=== PATIENT | female | born 1960 | race Caucasian/White ===

== ENCOUNTER 2016-08-05 17:55 | Emergency (ER) | payer OTHER ==
[~2016-08-05] VITALS: Ht 165.1 cm; Wt 97.5 kg
[~2016-08-05 17:55] MED LIST: ACTOS45 MG PO; AMOXICILLIN500 MG PO; Atrovent I0.5 MG/2.5 INH; BACTRIM DS 8001 TA1 PO; CIPRO500 MG PO; CIPROFLOXACIN500 MG PO; Carafate1 GM PO; DAYPRO600 M1 PO; DOXYCYCLINE100 M3 PO; DUONEB 3 MG/3 ML3 M1 INH; GLYBURIDE5 MG PO; GOOD NEIGHBOR150 MG PO; HUMALOG MIX 75/23 ML SC; HUMALOG PEN100 U/ML SC; KEFLEX500 M1 PO; KEFLEX500 MG PO; LISINOPRIL2.5 MG PO; LISINOPRIL20 MG PO; LOPERAMIDE HCL2 MG PO; LOSARTAN POTAS100 M1 PO; LOVASTATIN20 MG PO; METHOCARBAMOL750 MG PO; METOCLOPRAMIDE10 M1 PO; METOCLOPRAMIDE10 MG PO; MICRONASE5 MG PO; MOTRIN800 MG PO; NEURONTIN300 MG PO; NOVOLOG 70/30 M10 ML SC; NOVOLOG 701 UNIT/0.0 IV; NOVOLOG MI100 UNIT/1 SC; NOVOLOG MIX 70/33 ML SC; NOVOLOG10 ML SC; NOVOLOG100 U/ML SC; NYSTATIN CREAM15 GM T; OMEPRAZOLE40 MG PO; PERCOCET 325 MG1 TA2 PO; PREDNICOT20 MG PO; REGLAN10 MG PO; ROBAXIN-750750 MG PO; ROBAXIN750 MG PO; ROBITUSSIN AC 110 ML PO; TRAMADOL HCL50 MG PO; ULTRAM50 MG PO; VANCOCIN1000 MG/25 IV; VANCOMYCIN HCL N1 GM IV; VITAMIN D2400 IU PO; ZITHROMAX Z PA250 MG PO
[2016-08-05] MEDS ORDERED: PLAVIX75 M1 PO (18:00)
[2016-08-05 18:44] LABS: BASO % 0.3 % (0.0-1.0); EOS # 0.1 10*3/uL (0.0-0.4); EOS % 0.9 % (1.0-4.0); HEMATOCRIT 36.2 % (37.0-47.0); HEMOGLOBIN 11.9 g/dl (12.0-16.0); LYMPH # 1.6 10*3/uL (1.3-4.4); LYMPH % 23.4 % (27.0-41.0); MEAN CELL VOLUME 88.7 fl (81.0-99.0); MEAN CORPUSCULAR HGB 29.2 pg (27.0-31.0); MEAN CORPUSCULAR HGB CONC 32.9 g/dl (33.0-37.0); MEAN PLATELET VOLUME 11.6 fl (9.6-12.3); MONO # 0.3 10*3/uL (0.1-1.0); MONO % 4.5 % (3.0-9.0); NEUT # 4.9 10*3/uL (2.3-7.9); NEUT % 70.5 % (47.0-73.0); PLATELET COUNT AUTOMATED 203 10*3/uL (130-400); RED BLOOD COUNT 4.08 10*6/uL (4.10-5.10); RED CELL DISTRI WIDTH 12.5 % (0-14.5)
[2016-08-05 18:58] LABS: ALBUMIN 2.9 gm/dl (3.1-4.5); ALKALINE PHOSPHATASE 92 U/L (45-117); BILIRUBIN, TOTAL 0.3 mg/dl (0.2-1.0); BUN 13 mg/dl (7-24); CARBON DIOXIDE 27 mmol/L (21-32); CHLORIDE 102 mmol/L (98-107); EST GLOM FILT AFRICAN AMERICAN > 60 ml/min; GLUCOSE 245 mg/dL (65-99); SGOT/AST 15 IU/L (3-35); SGPT/ALT 21 U/L (12-78); SODIUM 138 mmol/L (136-145)
[2016-08-05 19:00] LABS: PROTHROMBIN TIME 10.1 SECONDS (9.0-12.4)
[2016-08-05 19:01] LABS: C-REACTIVE PROTEIN 0.95 MG/DL (0-0.3); CKMB 1.4 ng/ml (0.5-3.6); MAGNESIUM 1.6 mg/dL (1.5-2.1)
[2016-08-05 20:12] LABS: BILIRUBIN NEGATIVE (NEGATIVE); BLOOD 3+ (NEGATIVE); CLARITY SL CLOUDY (CLEAR); COLOR YELLOW (YELLOW); GLUCOSE 1+ (NEGATIVE); KETONE TRACE (NEGATIVE); LEUKO ESTERASE 1+ (NEGATIVE); NITRITE POSITIVE (NEGATIVE); PROTEIN 2+ (NEGATIVE); SPECIFIC GRAVITY 1.025 (1.005-1.030); UROBILINOGEN 0.2 E.U./dl (0.2-1.0)
[2016-08-05 20:29] LABS: BACTERIA 3+; RBC 0-2 rbc/hpf (0-2); URINE REFLEX COMMENT YES (NO); WBC 31-40 wbc/hpf (0-5)
[2016-08-05] MEDS ORDERED: MACROBID100 M1 PO (20:35)
[2016-08-05 21:00] VITALS: BP 154/80
[2016-09-17] MEDS ORDERED: TESSALON PERLE100 M1 PO (17:36)
[2016-09-17] MEDS ORDERED: ZOFRAN ODT4 MG SL (17:36)
== END 2016-08-05 21:00 | disposition home or self-care (01) ==
LOC: ED 17:55
PROVIDERS: Nurse Practitioner Family
DX: N39.0 Urinary tract infection, site not specified (principal); R31.9 Hematuria, unspecified; K52.9 Noninfective gastroenteritis and colitis, unspecified; I25.2 Old myocardial infarction; E11.9 Type 2 diabetes mellitus without complications; Z98.890 Other specified postprocedural states; Z88.0 Allergy status to penicillin

== ENCOUNTER 2016-10-17 12:18 | Emergency (ER) | payer OTHER ==
[~2016-10-17] VITALS: Ht 170.1 cm; Wt 100.2 kg
[~2016-10-17 12:18] MED LIST changes: +MACROBID100 M1 PO; +PLAVIX75 M1 PO; +TESSALON PERLE100 M1 PO; +ZOFRAN ODT4 MG SL
[2016-10-17 13:01] LABS: BILIRUBIN NEGATIVE (NEGATIVE); BLOOD 2+ (NEGATIVE); CLARITY CLOUDY (CLEAR); COLOR YELLOW (YELLOW); GLUCOSE NEGATIVE (NEGATIVE); KETONE NEGATIVE (NEGATIVE); LEUKO ESTERASE 3+ (NEGATIVE); NITRITE POSITIVE (NEGATIVE); PROTEIN 2+ (NEGATIVE); UROBILINOGEN 0.2 E.U./dl (0.2-1.0)
[2016-10-17 13:18] LABS: URINE REFLEX COMMENT YES (NO)
[2016-10-17 13:19] LABS: BACTERIA 3+; EPITHELIAL CELLS 20-30; WBC TNTC wbc/hpf (0-5)
[2016-10-17 13:44] LABS: BASO % 0.5 % (0.0-1.0); EOS # 0.3 10*3/uL (0.0-0.4); EOS % 3.1 % (1.0-4.0); HEMATOCRIT 39.7 % (37.0-47.0); HEMOGLOBIN 12.8 g/dl (12.0-16.0); LYMPH # 2.9 10*3/uL (1.3-4.4); LYMPH % 33.1 % (27.0-41.0); MEAN CELL VOLUME 89.4 fl (81.0-99.0); MEAN CORPUSCULAR HGB 28.8 pg (27.0-31.0); MEAN CORPUSCULAR HGB CONC 32.2 g/dl (33.0-37.0); MEAN PLATELET VOLUME 11.3 fl (9.6-12.3); MONO # 0.4 10*3/uL (0.1-1.0); MONO % 4.8 % (3.0-9.0); NEUT # 5.1 10*3/uL (2.3-7.9); NEUT % 58.3 % (47.0-73.0); PLATELET COUNT AUTOMATED 262 10*3/uL (130-400); RED BLOOD COUNT 4.44 10*6/uL (4.10-5.10); RED CELL DISTRI WIDTH 13.2 % (0-14.5); WHITE BLOOD COUNT 8.8 10*3/uL (4.8-10.8)
[2016-10-17 13:59] LABS: ALBUMIN 2.9 gm/dl (3.1-4.5); ALKALINE PHOSPHATASE 93 U/L (45-117); BILIRUBIN, TOTAL 0.2 mg/dl (0.2-1.0); BUN 27 mg/dl (7-24); C-REACTIVE PROTEIN < 0.29 MG/DL (0-0.3); CARBON DIOXIDE 25 mmol/L (21-32); CHLORIDE 106 mmol/L (98-107); EST GLOM FILT AFRICAN AMERICAN > 60 ml/min; GLUCOSE 217 mg/dL (65-99); MAGNESIUM 2.6 mg/dL (1.5-2.1); POTASSIUM 5.1 mmol/L (3.5-5.1); SGOT/AST 17 IU/L (3-35); SGPT/ALT 20 U/L (12-78); SODIUM 139 mmol/L (136-145); TOTAL PROTEIN 7.1 gm/dL (6.4-8.2)
[2016-10-17] MEDS ORDERED: CIPRO500 MG PO (17:25)
== END 2016-10-17 17:26 | disposition home or self-care (01) ==
LOC: ED 12:18
PROVIDERS: Emergency Medicine
DX: N39.0 Urinary tract infection, site not specified (principal); Z88.0 Allergy status to penicillin; Z79.899 Other long term (current) drug therapy

== ENCOUNTER → 2016-10-21 | Outpatient (CLI) | payer OTHER | END | disposition home or self-care (01) | LOC: MAMMO 10-13 13:00 | DX: Z12.31 Encounter for screening mammogram for malignant neoplasm of breast (principal) ==

== ENCOUNTER → 2016-10-29 | Outpatient (CLI) | payer OTHER ==
--- NOTE | ~2016-10-29 | WRIGHTHP ---
[place], [place] PATIENT HISTORY AND PHYSICAL EXAM NAME: YOVANI TATE [facility] #: [id number] UNIT #: [id number] ROOM: DOCTOR: ELSA CardozoTIFFANIE BIRTHDATE: [birth year] DOS: 10/29/2016 CHIEF COMPLAINT: Diabetic ulcer of the left great toe. HISTORY OF PRESENT ILLNESS: This is a 56-year-old female with diabetic neuropathy and history of uncontrolled diabetes who was seen back last year in April through late May for her diabetic foot ulcer of the left forefoot. This wound that did eventually heal with wound care and we have not seen her for quite some time. She comes in today with a new wound of the same foot on the left great toe. She says she has had for about a month now. She has been using triple antibiotic ointment at home. There has been some drainage, her has been changing the dressing himself and noticed some odor at the last time he changed it. There are no fevers or chills. She says her sugars are not well controlled. She was in the hospital recently back in late September for multiple medical problems that included intractable nausea and vomiting so she was being worked up for this. She was also worked up for atypical chest pain and also had been worked up for a pulmonary nodule. PAST MEDICAL HISTORY: Significant for the following recent diagnosis of gastric erosions and ulcers on EGD, history of intractable nausea and vomiting, hypokalemia, coronary artery disease, type 2 diabetes, uncontrolled; mixed hyperlipidemia, chronic low back pain, diabetic polyneuropathy, benign essential hypertension, diabetic gastroparesis, atypical chest pain, chronic kidney disease stage 3. She has had a history of abscesses, cellulitis of the foot, history of metabolic acidosis, non-ST elevation GA, difficulty ambulating, UTIs and viral syndrome. FAMILY HISTORY: Positive for coronary artery disease, diabetes, and hypertension. ALLERGIES: PENICILLIN. MEDICATIONS: The medications that she was directed to take are glyburide 5 mg tablets 10 mg twice a day, lovastatin 20 mg at bedtime, lisinopril 20 mg at bedtime, losartan 100 mg daily, DuoNeb twice a day, omeprazole 40 daily, Neurontin 300 every 8 hours, insulin sliding scale 70/30 twice a day 70 units, loperamide was as needed, Plavix 75 mg daily. She is on antibiotics for UTI, Zofran p.r.n. and Tessalon Perles 100 mg 3 times a day. SOCIAL HISTORY: As follows: She does not smoke or drink. FAMILY HISTORY: Significant for diabetes, coronary artery disease, hypertension, and cancer. REVIEW OF SYSTEMS: She has neuropathy. She does have some chronic dyspnea on exertion. She denies any chest pains, fevers, documented fevers or diarrhea. No pain with the wound and she does have neuropathy as stated above. PHYSICAL EXAMINATION: GENERAL: This is a patient who appears older than her stated age, [facility] and [place], [place] PATIENT HISTORY AND PHYSICAL EXAM [facility]: [facility] [id number] UNIT #: [id number] ROOM: DOCTOR: TIFFANIE HUNTER M.D. BIRTHDATE: [birth year] cooperative to examination, in no acute distress. VITAL SIGNS: As follows: She is afebrile, pulse of 74, respirations 16; blood pressure is 148/90. NECK: There is no JVD. LUNGS: Clear. CARDIOVASCULAR: S1, S2 regular rate and rhythm. ABDOMEN: Obese and soft, nontender presently. EXTREMITIES: She has a wound noted on her left great toe plantar aspect that is surrounded with very thick callus it is open at 1.2 x 0.7 x 0.2. Her pedal pulses are palpable. Her toes are warm. She has no calf pain and her RONI was 1.22 on the left and 1.23 on the right. A debridement was done. The tissue removed was not nonviable hyperkeratotic callus as well as fibrin, slough and subcutaneous tissue. This was accomplished with a #15 blade and a curette. There was minimal bleeding that was controlled with pressure. The post-debridement measurements are as follows 1.3 x 0.8 x 0.2 in depth. The patient tolerated the debridement well. LABORATORY DATA: Her last white count was 9.7, hemoglobin is 14, and platelets are 227. BUN was 14, creatinine was 1.4. Hemoglobin A1c back in April was 13.5. I do not see a recent one done. Albumin was 2.9. ASSESSMENT AND PLAN: Diabetic foot ulcer of the left great toe. A culture was taken although clinically there does not appear to be any signs of infection. She does have a postop shoe that is a Darco postop shoe but it seems like that it is made for an ulcer of the heel as there is some part of the heel is cutout. So, I do not think this is really specific for forefoot offloading so I did advise her to consult with [facility] to see if we can get a forefoot offloading shoe for her. We have tried to contact cast in the past; however, she has difficulty ambulating with this and severe balance issues, so she is not a candidate for a contact cast. She did have some arterial Dopplers done last fall which were unremarkable, so we will not repeat this study again. I did advise her to get x-ray of the area if we can and at some point, we will need to repeat her hemoglobin A1c to see where we are at as it was several months ago that she had it done. We will follow up with the patient in 1 week. Right now, we will use a collagen silver dressing as well as a bulky dressing. Followup in 1 week. [place], [place] PATIENT HISTORY AND PHYSICAL EXAM [facility] [id number] UNIT #: [id number] ROOM: DOCTOR: TIFFANIE HUNTER M.D. BIRTHDATE: [birth year] TIFFANIE HUNTER MD CM:HISPHYS:PATIENT HISTORY AND PHYSICAL EXAMINATION [id number] TIFFANIE HUNTER M.D. 10/30/16 1046 interface
== END ==
LOC: WOUNDCARE 01:23
DX: E11.621 Type 2 diabetes mellitus with foot ulcer (principal); L97.522 Non-pressure chronic ulcer of other part of left foot with fat layer exposed; E78.2 Mixed hyperlipidemia; I25.10 Atherosclerotic heart disease of native coronary artery without angina pectoris; E11.22 Type 2 diabetes mellitus with diabetic chronic kidney disease; I12.9 Hypertensive chronic kidney disease with stage 1 through stage 4 chronic kidney disease, or unspecified chronic kidney disease; N18.3 Chronic kidney disease, stage 3 (moderate); E11.43 Type 2 diabetes mellitus with diabetic autonomic (poly)neuropathy; K31.84 Gastroparesis; E11.42 Type 2 diabetes mellitus with diabetic polyneuropathy; I25.2 Old myocardial infarction

== ENCOUNTER → 2016-11-05 | Outpatient (CLI) | payer OTHER ==
--- NOTE | ~2016-11-05 | PR ---
[place], [place] PROGRESS NOTE NAME: YVOANI TATE [facility] #: [id number] UNIT #: [id number] ROOM: DOCTOR: TIFFANIE HUNTER M.D. BIRTHDATE: [birth year] DOS: 11/05/2016 WOUND CARE FOLLOWUP NOTE CHIEF COMPLAINT: Diabetic foot ulcer. HISTORY OF PRESENT ILLNESS: The location of the wound is the plantar aspect of the left great toe. It is diabetic in nature. It has been present for a little over a month now. She did go to [employer] for adjustment of her shoes. She did have a Darco postop shoe that is open in the forefoot. They were able to put a felt foam to help offload the forefoot. This was just done yesterday. Otherwise, there is very minimal drainage with the wound. No fevers or chills. No complaints at the present time. PHYSICAL EXAMINATION: VITAL SIGNS: She is afebrile, pulse is 70, respirations 16, blood pressure is 145/90. WOUND EXAMINATION: The wound is measuring smaller at 1 x 0.5 x 0.1. There is a still very thick callus present around the wound. The base of the wound looks clean. The area was debrided. The tissue removed. It was just nonviable hyperkeratotic callus as well as some minimal fibrin and slough. There was no bleeding and #15 blade was utilized. Cetacaine spray was used for anesthesia. Post-debridement measurements are unchanged. ASSESSMENT AND PLAN: Diabetic foot ulcer of the left great toe. It does seem to be stable and improving. We will continue with the collagen dressing and have her follow up in one week. TIFFANIE HUNTER MD CM:RENAY [phone] TIFFANIE HUNTER M.D. 11/05/162239 interface
== END ==
LOC: WOUNDCARE 02:50
DX: E11.621 Type 2 diabetes mellitus with foot ulcer (principal); L97.522 Non-pressure chronic ulcer of other part of left foot with fat layer exposed; L84 Corns and callosities

== ENCOUNTER → 2016-11-11 | Outpatient (CLI) | payer OTHER ==
--- NOTE | ~2016-11-11 | PR ---
[place], [place] PROGRESS NOTE NAME: YOVANI TATE [facility] #: [id number] UNIT #: [id number] ROOM: DOCTOR: ELSA Cardozo,TIFFANIE BIRTHDATE: [birth year] DOS: 11/11/2016 CHIEF COMPLAINT: Follow up of diabetic foot ulcer. HISTORY OF PRESENT ILLNESS: The location is the plantar aspect of the left great toe. It is diabetic in nature. It has been present for a little over 5 weeks now. She did go to [facility] for adjustment of her postop shoe. She has a Darco postop shoe. She has occasional bloody drainage, but not much at all. No fevers or chills. PHYSICAL EXAMINATION: VITAL SIGNS: Stable. Temp is 98.1, pulse is 68, respirations 18, blood pressure is 120/86. WOUND EXAMINATION: The wound is measuring 1 x 0.5 x 0.2. There is a very abundant amount of callus. There is no cellulitis, purulence or tenderness. A debridement was done. The tissue removed was hyperkeratotic, nonviable callus, fibrin, slough and subcutaneous tissue. This was accomplished with a #15 blade and a curette. There was a moderate amount of bleeding that was controlled with pressure. Post-debridement measurements are unchanged. ASSESSMENT AND PLAN: Diabetic foot ulcer of the left great toe. There has been very minimal change from last week to this week. We will continue with the same dressing which is a collagen and a bulky dressing; however, change it every other day and we will continue with an offloading postop shoe that she has. If we remain unchanged the next week, we may want to consider getting a different orthotic type of a forefoot offloading device for her if the callus continues. TIFFANIE HUNTER MD CM:RENAY [id number] TIFFANIE HUNTER M.D. 11/12/16 0428 interface
== END ==
LOC: WOUNDCARE 01:56
DX: E11.621 Type 2 diabetes mellitus with foot ulcer (principal); L97.522 Non-pressure chronic ulcer of other part of left foot with fat layer exposed; L84 Corns and callosities

== ENCOUNTER → 2016-11-19 | Outpatient (CLI) | payer OTHER ==
--- NOTE | ~2016-11-19 | PR ---
[place], [place] PROGRESS NOTE [facility] [id number] UNIT #: [id number] ROOM: DOCTOR: TIFFANIE HUNTER M.D. BIRTHDATE: [birth year] DOS: 11/19/2016 CHIEF COMPLAINT: Follow up with diabetic foot ulcer. HISTORY OF PRESENT ILLNESS: The location is the plantar aspect of the left great toe. It is diabetic in nature, it has been present for a little over 6 weeks now. She has been using a postop shoe that has been adjusted by overhead garage door hanger for offloading. She cannot tolerate its contact cast due to balance issues. She says it is not draining much at all. No fevers or chills. Her sugars remain high 300-400 range on several occasions. OBJECTIVE: VITAL SIGNS: Temperature is 98.3, pulse is 65, respirations 18, blood pressure is 138/76. EXTREMITIES: The wound is measuring 1 cm x 0.4 cm x 0.1. There is some callus still around the periwound, but overall less than before. There is no purulence, tenderness, or undermining. Debridement was done. The tissue removed was nonviable hyperkeratotic tissue only. This was accomplished with a #15 blade. Minimal fibrin slough was removed. There was minimal bleeding. Post-debridement measurements are 0.9 x 0.5 x 0.1. ASSESSMENT AND PLAN: Chronic diabetic foot ulcer. There is some improvement, but slow progress. No sign of infection. We will continue with collagen and a bulky dressing and have her followup with us in next week. TIFFANIE HUNTER MD CM:PNTRANS [phone] TIFFANIE HUNTER M.D. 11/20/16 0022 interface
== END ==
LOC: WOUNDCARE 02:20
DX: E11.621 Type 2 diabetes mellitus with foot ulcer (principal); L97.522 Non-pressure chronic ulcer of other part of left foot with fat layer exposed; L84 Corns and callosities

== ENCOUNTER → 2016-11-24 | Outpatient (CLI) | payer OTHER ==
--- NOTE | ~2016-11-24 | PR ---
[place], [place] PROGRESS NOTE NAME: YOVANI TATE [facility] #: [id number] UNIT #: [id number] ROOM: DOCTOR: TIFFANIE HUNTER M.D. BIRTHDATE: [birth year] DOS: 11/24/2016 CHIEF COMPLAINT: Diabetic ulcer. HISTORY OF PRESENT ILLNESS: The location is the plantar aspect of left toe. It is diabetic in nature. It has been present for 7 weeks now at least. She has been using a postop shoe with a felt foam for offloading on the inside. She cannot tolerate contact cast. She has no specific changes regarding the wound. No pain. Her sugars remain high in the 300, 400 range. She is going to be starting a new antidiabetic agent in the future. She is scheduled for a pulmonary biopsy in 2 days. No other specific complaints are noted. OBJECTIVE: VITAL SIGNS: Stable. Temperature is 97.7, pulse of 80, respirations 18, blood pressure is 122/64. WOUND EXAM: The wound is measuring 0.6 x 0.4 x 0.1. There is some callus around the periwound. It is not as thick as normal. It looks clean. There is no undermining or purulence. A debridement was done. The tissue removed was hyperkeratotic callus and a fibrin slough and subcutaneous tissue. There was moderate bleeding that was controlled with pressure. Instrument used was #15 blade and a curette. The patient tolerated the debridement well. ASSESSMENT AND PLAN: Diabetic foot ulcer, which is slowly improving. No sign of infection. We will continue with the collagen and a bulky dressing and follow up in one week. TIFFANIE HUNTER MD CM:PNTRANS [phone] TIFFANIE HUNTER M.D. 11/24/16 2245 interface
== END ==
LOC: WOUNDCARE 02:05
DX: E11.621 Type 2 diabetes mellitus with foot ulcer (principal); L97.522 Non-pressure chronic ulcer of other part of left foot with fat layer exposed

== ENCOUNTER → 2016-12-01 | Outpatient (CLI) | payer OTHER ==
--- NOTE | ~2016-12-01 | PR ---
[place], [place] PROGRESS NOTE NAME: YOVANI TATE [facility] #: [id number] UNIT #: [id number] ROOM: DOCTOR: ELSA CardozoTIFFANIE BIRTHDATE: [birth year] DOS: 12/01/2016 This is a wound care followup note. CHIEF COMPLAINT: Diabetic foot ulcer of the left great toe. HISTORY OF PRESENT ILLNESS: The location of the wound is the plantar aspect of the left toe. This is diabetic in nature. She has had it for 8 weeks now. She has been using a postop shoe with felt foam for offloading on the inside. She cannot tolerate a contact cast secondary to severe balance issues. Glucose remains high, she says 300-400 range. She has no new specific complaints regarding the foot wound. She says it is not draining much at all and she is undergoing a pulmonary biopsy in the next few days. OBJECTIVE: VITAL SIGNS: Stable. Pulse is 74, respirations 18, temp is 98.2, blood pressure is 118/60. WOUND EXAMINATION: The wound of the left great toe is measuring 0.8 x 0.4 x 0.1. It looks really good and clean. It is relatively small. There is no sign of infection. There is still a fair amount of callus, but does not seem to be as prominent as it had been. A debridement was done today. It was a selective debridement only. The tissue removed was just nonviable hyperkeratotic callus with a #15 blade and some fibrin and slough at the base of the wound. This was done with a curette. There was minimal bleeding. Post-debridement measurements are unchanged. The patient tolerated the debridement well. Cetacaine spray was used for topical anesthesia. ASSESSMENT AND PLAN: Chronic diabetic foot ulcer of the left great toe. Offloading is a challenge. There is no sign of infection. I did not want to use Endoform today; however, we do not have it available, so we will not use it and we will continue with the collagen dressing. Offloading is a challenge. I did place a small cut out felt around the callused area to see if this will help offload the area a little bit. We will see if this helps. She may be a candidate for new diabetic shoes, so we will see if we can have her scheduled to see our orthotic specialist when she is here at her next visit. Follow up for wound care in 1 week. [place], [place] PROGRESS NOTE NAME: YOVNAI TATE UNIT #: [id number] ROOM: DOCTOR: TIFFANIE HUNTER M.D. BIRTHDATE: [birth year] TIFFANIE HUNTER MD CM:RENAY [phone] TIFFANIE HUNTER M.D. 12/02/16 0927 interface
== END ==
LOC: WOUNDCARE 00:54
DX: E11.621 Type 2 diabetes mellitus with foot ulcer (principal); L97.522 Non-pressure chronic ulcer of other part of left foot with fat layer exposed; L84 Corns and callosities

== ENCOUNTER → 2016-12-08 | Outpatient (CLI) | payer OTHER ==
--- NOTE | ~2016-12-08 | PR ---
[place], [place] PROGRESS NOTE NAME: YOVANI TATE [facility] #: [id number] UNIT #: [id number] ROOM: DOCTOR: TIFFANIE HUNTER M.D. BIRTHDATE: [birth year] DOS: 12/08/2016 CHIEF COMPLAINT: Diabetic foot ulcer. HISTORY OF PRESENT ILLNESS: The location of the wound is the plantar aspect of the left great toe. It is diabetic in nature. She has had it for 9 weeks now. She has been using a postop shoe for offloading with a felt foam inside. Last week, we had applied a felt to the outer part of the callus to try to see if that would help alleviate some of the pressure as well. She has no new complaints. No pain, fevers or chills, it is not draining excessively. OBJECTIVE: VITAL SIGNS: Stable. Temperature is 97.8, pulse of 76, respirations 18, blood pressure is 130/70. WOUND EXAM: The wound is measuring 0.4 x 0.3 x 0.1. It definitely looks good. The callus was not as thick as last week. A selective debridement was done today. Tissue removed was nonviable, hyperkeratotic callus and fibrin and slough. Only number 15 blade and curette were used. Cetacaine spray was used for topical anesthesia. There was really minimal bleeding that was controlled with pressure. Post-debridement measurements are unchanged. ASSESSMENT AND PLAN: Chronic diabetic foot ulcer of the left great toe which is steadily improving with felt. We will continue with collagen dressing and follow up in one week. TIFFANIE HUNTER MD CM:PNTRANS [phone] TIFFANIE HUNTER M.D. 12/08/16 2347 interface
== END ==
LOC: WOUNDCARE 01:09
DX: E11.621 Type 2 diabetes mellitus with foot ulcer (principal); L97.522 Non-pressure chronic ulcer of other part of left foot with fat layer exposed; L84 Corns and callosities

== ENCOUNTER → 2016-12-09 | Outpatient (CLI) | payer OTHER ==
[2016-12-09 14:57] LABS: BILIRUBIN NEGATIVE (NEGATIVE); BLOOD 2+ (NEGATIVE); CLARITY SL CLOUDY (CLEAR); COLOR YELLOW (YELLOW); GLUCOSE 3+ (NEGATIVE); KETONE NEGATIVE (NEGATIVE); LEUKO ESTERASE NEGATIVE (NEGATIVE); NITRITE NEGATIVE (NEGATIVE); PH 6.5 (5.0-9.0); PROTEIN 1+ (NEGATIVE); SPECIFIC GRAVITY <= 1.005 (1.005-1.030); UROBILINOGEN 0.2 E.U./dl (0.2-1.0)
[2016-12-09 15:11] LABS: BACTERIA 2+; WBC TNTC wbc/hpf (0-5)
[2016-12-09 15:21] LABS: ALBUMIN 2.9 gm/dl (3.1-4.5); BUN 14 mg/dl (7-24); CARBON DIOXIDE 26 mmol/L (21-32); CHLORIDE 97 mmol/L (98-107); POTASSIUM 4.6 mmol/L (3.5-5.1); SODIUM 134 mmol/L (136-145)
[2016-12-09 15:34] LABS: ALKALINE PHOSPHATASE 136 U/L (45-117); BILIRUBIN, DIRECT < 0.1 mg/dL (0.0-0.2); BILIRUBIN, TOTAL 0.2 mg/dl (0.2-1.0); CHOLESTEROL 158 mg/dL (<200); EST GLOM FILT AFRICAN AMERICAN 57 ml/min; HDL CHOLESTEROL 55 mg/dl (40-60); LDL CHOLESTEROL 58 mg/dL (9-159); SGOT/AST 19 IU/L (3-35); SGPT/ALT 16 U/L (12-78); THYROID STIM HORMONE (HS) 0.771 uIU/ml (0.358-4.75); TOTAL PROTEIN 6.9 gm/dL (6.4-8.2); TRIGLYCERIDES 224 mg/dl (<150); VLDL CHOLESTEROL 45 mg/dL (6-40)
[2016-12-09 15:46] LABS: GLUCOSE 524 mg/dL (65-99)
[2016-12-09 15:59] LABS: HEMOGLOBIN A1c 12.7 % (4.8-5.6)
== END | disposition home or self-care (01) ==
LOC: LAB 14:20
PROVIDERS: Internal Medicine
DX: E78.5 Hyperlipidemia, unspecified (principal); E55.9 Vitamin D deficiency, unspecified; E11.65 Type 2 diabetes mellitus with hyperglycemia; E04.9 Nontoxic goiter, unspecified

== ENCOUNTER → 2016-12-15 | Outpatient (CLI) | payer OTHER ==
--- NOTE | ~2016-12-15 | PR ---
[place], [place] PROGRESS NOTE NAME: YOVANI TATE [facility] #: [id number] UNIT #: [id number] ROOM: DOCTOR: ELSA CardozoTIFFANIE BIRTHDATE: [birth year] DOS: 12/15/2016 CHIEF COMPLAINT: Diabetic foot ulcer. HISTORY OF PRESENT ILLNESS: Location of the wound is the plantar aspect of the left great toe, it is diabetic. She has had it for 10 weeks. She has been to the Wound Clinic for 6 weeks now where there has been some slow, but steady progress. She has no specific complaints. Her sugars remained very elevated. She had a blood work done just recently that I have reviewed, and it showed glucose of 524. Her hemoglobin A1c was 12.7. She says this is usual for her, and she says she feels better when her sugars are high. The wound is measuring 0.4 x 0.3 x 0.1. It looks essentially the same as last week. There is some callus formation around the toe once again, it does not appear infected. There is no undermining noted. There is no cellulitis. A selective debridement was done just to remove the hyperkeratotic nonviable tissue. There was a minimal amount of bleeding that was controlled with pressure. Instrument utilized was a #15 blade. The post-debridement measurements are 0.6 x 0.3 x 0.2. ASSESSMENT AND PLAN: Chronic diabetic foot ulcer of the left great toe plantar aspect. It does seem to be slowly improving. We will continue with collagen and a bulky dressing, offloading has been a challenge as we cannot use the contact cast on her as she has balance issues. We did have an evaluation by an oil prospecting observer today regarding a forefoot offloading device for her, who has evaluated the patient and brought in an offloading product to help offload the forefoot. So hopefully, this will help as well. I think there is another reason why this wound has not healed is because of the uncontrolled diabetes. I did discuss with her that she really needs to try to get this down. We have had Nutrition see the patient in the past, and she does not believe it is necessary to get another consultation with him. So uncontrolled diabetes remains quite a challenge. She is to followup in the Wound Clinic in 1 week. TIFFANIE HUNTER MD CM:RENAY [id number] TIFFANIE HUNTER M.D. 12/16/16 0423 interface
== END ==
LOC: WOUNDCARE 03:37
DX: E11.621 Type 2 diabetes mellitus with foot ulcer (principal); L97.522 Non-pressure chronic ulcer of other part of left foot with fat layer exposed; L84 Corns and callosities

== ENCOUNTER → 2016-12-22 | Outpatient (CLI) | payer OTHER ==
--- NOTE | ~2016-12-22 | PR ---
[place], [place] PROGRESS NOTE NAME: YOVANI TATE [facility] #: [id number] UNIT #: [id number] ROOM: DOCTOR: ELSA CardozoTIFFANIE BIRTHDATE: [birth year] DOS: 12/22/2016 CHIEF COMPLAINT: Diabetic foot ulcer. HISTORY OF PRESENT ILLNESS: This is a patient known to the Wound Clinic for a diabetic ulcer of the left great toe. It is on the plantar aspect that she has had for at least 11 weeks now. She has been coming to the Wound Clinic for 7 weeks. The wound has been making steady progress and last week, we had provided her with an offloading boot to help offload the area. She cannot tolerate a contact cast due to severe balance issues. This was a new device for her and was utilized to help offload the left great toe. However, she comes in today earlier than her regular scheduled appointment because this boot caused a new wound on her medial left ankle and also started to rub a bit on the distal part of the tibia. It did not create a wound in that area, it is a little bit red, but it is not open. Her sugars remained uncontrolled. She also does not smoke and is going to be going to be admitted later this week for a pulmonary biopsy. So, this is going to require her to be in ICU for an extended period of days. Otherwise, she has no pain, fevers, chills, change in drainage at all with the wound or the new wound. PHYSICAL EXAMINATION: VITAL SIGNS: Today, her vitals are stable. Temp is 98.2, pulse is 70, respirations 18, blood pressure is 122/74. WOUND EXAMINATION: The left great toe wound has some thick callus around it and it is measuring 0.1 x 0.1 x 0.1 and the callus is not as thick as usual, but it is still pretty, present. The left medial ankle is open. It is measuring 1.5 x 0.8 x 0.1. There is really no necrotic tissue. It looks clean. It is a superficial abrasion type wound present, no sign of infection. The left great toe area was debrided of callus today. The tissue removed was just hyperkeratotic callus, nonviable tissue with a #15 blade. There was no bleeding. The post-debridement measurements are 0.4 x 0.4 x 0.1. ASSESSMENT AND PLAN: Chronic diabetic foot ulcer of the left great toe that is making progress slow, but steady. We will continue with collagen and a bulky dressing. She will just use her postop shoes instead of the walking boot. For her new abrasion, which was secondary to the new device rubbing against her skin, we will use bacitracin and a foam dressing for padding and she will stop using the offloading device. The patient is to follow up in 1-2 weeks after she is discharged from the hospital. She is going there for her pulmonary workup. We will see her afterwards. [place], [place] PROGRESS NOTE NAME: YOVANI TATE UNIT #: [id number] ROOM: DOCTOR: TIFFANIE HUNTER M.D. BIRTHDATE: [birth year] TIFFANIE HUNTER MD CM:RENAY [phone] TIFFANIE HUNTER M.D. 12/23/16519 interface
== END ==
LOC: WOUNDCARE 13:10
DX: E11.621 Type 2 diabetes mellitus with foot ulcer (principal); L97.522 Non-pressure chronic ulcer of other part of left foot with fat layer exposed; S90.512D Abrasion, left ankle, subsequent encounter; X58.XXXD Exposure to other specified factors, subsequent encounter

== ENCOUNTER 2016-12-27 12:54 | Inpatient (IN) | payer OTHER ==
[~2016-12-27] VITALS: Ht 170.2 cm; Wt 97.7 kg
--- NOTE | ~2016-12-27 | PR ---
[place], [place] PROGRESS NOTE NAME: YOVANI TATE UNIT #: [id number] ROOM: [id number] DOCTOR: DEE GORMAN,SILVERIO Alice[place] BIRTHDATE: [birth year] DOS: 12/28/2016 ADDENDUM After reviewing the case and labs, I agree with the above plans as described. We will continue with the same program and we will make changes according to new developments. SILVERIO PRICE MD CM:PNTRANS [id number] SILVERIO PRICE MD 12/30/16 1536 interface
--- NOTE | ~2016-12-27 | PR ---
[place], [place] PROGRESS NOTE NAME: YOVANI TATE UNIT #: [id number] ROOM: 504 DOCTOR: SERA AMBROSENOVEMBER BIRTHDATE: [birth year] DOS: 12/28/2016 SUBJECTIVE: The patient is being followed for a left lower leg cellulitis with a small abscess. Cultures are pending. Gram stain has gram-positive cocci in pairs. She is an uncontrolled diabetic. Blood cultures are negative. She is on IV vancomycin, which she is tolerating without issue. She denies nausea, vomiting or diarrhea. No rash or itch. No cough or shortness of breath. No fevers or shaking chills. VITAL SIGNS: Show temperature 98.5, pulse 73, respirations 18, BP 133/65. LABORATORY DATA: Show WBC 6.8, platelets 156, BUN 15, creatinine 0.95. PHYSICAL EXAMINATION: GENERAL: A 56-year-old obese female, in no acute distress. HEAD, EYES, EARS, NOSE AND THROAT: Normocephalic. No thrush. LUNGS: Clear to auscultation bilaterally. Respirations even and unlabored. HEART: Regular rhythm. No murmur appreciated. ABDOMEN: Soft. EXTREMITIES: Left lower leg, improving erythema, abscess has coalesced with a scab over. ASSESSMENT: Small left lower leg cellulitis and a small abscess, which needs a simple debridement. PLAN: I will ask Surgery to stop by and clean up the area to help clear the infection. After that she could be changed over to oral antibiotics for discharge. DOMINIC ZAMORA CNP SILVERIO PRICE MD CM:PNTRANS [id number] DOMINIC ZAMORA CNP 12/30/16 0652 interface
--- NOTE | ~2016-12-27 | PR ---
[place], [place] PROGRESS NOTE NAME: YOVANI TATE UNIT #: [id number] ROOM: 504 DOCTOR: DAY TURNER MD BIRTHDATE: [birth year] DOS: 12/27/2016 SUBJECTIVE: The patient continues to feel better and has been recommended by ID to have a wound debridement performed. OBJECTIVE: GENERAL APPEARANCE: The patient is alert and oriented x 3, in no visible distress. VITAL SIGNS: Blood pressure 140/73, heart rate of 74 beats per minute, afebrile, 98% pulse ox. HEENT AND NECK: Exam within normal limits. CARDIOVASCULAR SYSTEM: Heart rate is regular in rate and rhythm. S1 and S2 normally audible. LUNGS: Clear to auscultation. ABDOMEN: Soft, nontender. No obvious organomegaly. Bowel sounds are present. EXTREMITIES: Without significant cyanosis or edema. The patient has cellulitis and abscess involving inner side of left ankle, which is improving. IMPRESSION: 1. The patient's cellulitis and abscess involving left ankle with spontaneous drainage to be further debrided by Dr. Hernandez tomorrow who has been consulted. The patient being followed by ID specialist. 2. Uncontrolled type 2 diabetes mellitus. Blood sugars staying around 300. I will increase her insulin to 40 units with meals like it used to be before. 3. Coronary artery disease of the [place] vessels without chest pain. 4. Benign essential hypertension with controlled blood pressures. DAY TURNER MD CM:PNTRANS [id number] DAY TURNER MD 12/30/16 0015 interface
--- NOTE | ~2016-12-27 | DS ---
[place], [place] DISCHARGE SUMMARY NAME: YOVANI TATE UNIT #: [id number] ROOM: 504 DOCTOR: YUE GORMANDAY Rosemary BIRTHDATE: [birth year] DOS: 12/30/2016 DISCHARGE DIAGNOSES: 1. The patient with abscess and cellulitis involving left ankle, status post drainage by Dr. Villagran. 2. Type 2 diabetes mellitus, uncontrolled. 3. Coronary artery disease of the [place] vessels. 4. Benign essential hypertension. 5. Mixed hyperlipidemia. 6. Chronic lower back pains. 7. Diabetic polyneuropathy. 8. Coronary artery disease of the [place] vessels. 9. Gastric erosion and also is on EGD in the past. HOSPITAL COURSE: The patient presented with 3 weeks complaints of worsening of infection and redness in the left leg with pain and a draining wound in her left ankle. The patient initially evaluated in the Emergency Department. Cultures are performed. After admission, the clinical account specialist, Dr. Villagran was consulted, who drained the incision and Infectious Disease was helped with treatment of the antibiotics. The patient initially given IV vancomycin and now is being discharged on doxycycline for 2 weeks. The patient is to follow with Dr. Villagran and to follow up with Dr. Garcia with PCP within a week of discharge. Type 2 diabetes mellitus, uncontrolled. The patient takes insulin, but is very poor with her diet and treatment. Benign essential hypertension. Blood pressure is being monitored and treated. Mixed hyperlipidemia treated with simvastatin. LABORATORY DATA: Wound cultures grew Staph aureus. Normal serum electrolytes. CBC, blood cultures were negative. DISCHARGE MANAGEMENT: Doxycycline 100 mg b.i.d. for 2 weeks. Follow up with Dr. Villagran next week. Follow up with Dr. Lynda Garcia within 1 week, hydroxyzine 25 mg every 8 hours, metformin 500 mg half a tablet a.c., Singulair 10 mg a day, aspirin 81 mg a day, Pepcid 20 mg b.i.d., metoprolol 50 mg b.i.d., simvastatin 20 mg daily, glimepiride 8 mg daily, Plavix 75 mg a day, losartan 25 mg daily. Breathing treatments as necessary. [place], [place] DISCHARGE SUMMARY NAME: YOVANI TATE UNIT #: [id number] ROOM: 504 DOCTOR: DAY TURNER MD BIRTHDATE: [birth year] DAY TURNER MD CM:FLY [id number] DAY TURNER MD 12/30/16 1856 interface
--- NOTE | ~2016-12-27 | CON ---
[place], [place] REPORT OF CONSULTATION NAME: YOVANI TATE UNIT #: [id number] ROOM: 504 DOCTOR: DEE GORMAN,SILVERIO Alice[place] BIRTHDATE: [birth year] DOS: 12/27/2016 ADDENDUM I agree with the above plans as described after reviewing the chart, discussing case. We will make adjustments accordingly and follow up clinically. SILVERIO PRICE MD CM:CONSTR:REPORT OF CONSULTATION 1208 12/30/16 1518 interface
--- NOTE | ~2016-12-27 | PR ---
[place], [place] PROGRESS NOTE NAME: YOVANI TATE UNIT #: [id number] ROOM: 504 DOCTOR: DAY TURNER MD BIRTHDATE: [birth year] DOS: 12/28/2016 IMPRESSION: 1. The patient with uncontrolled type 2 diabetes mellitus with much improved blood sugars during her hospital stay and now have dropped down to around 190. At the time of admission they were more than 445. 2. Cellulitis and abscess involving the left ankle showing signs of improvement with treatment with antibiotic. Wound care doctor and Infectious Disease is following her. 3. Coronary artery disease of the [place] vessels without chest pain. 4. Benign essential hypertension with controlled blood pressures. DAY TURNER MD CM:RENAY [id number] DAY TURNER MD 12/29/16 0156 interface
--- NOTE | ~2016-12-27 | CON ---
[place], [place] REPORT OF CONSULTATION [id number] UNIT #: [id number] ROOM: 504 DOCTOR: ELSA CardozoTIFFANIE BIRTHDATE: [birth year] DOS: 12/30/2016 WOUND CARE CONSULTATION CHIEF COMPLAINT: Abscess of the left leg. HISTORY OF PRESENT ILLNESS: This is a 56-year-old female known to the Wound Clinic for a diabetic foot ulcer of the left great toe that she has been following with us for several weeks now. The wound has been steadily improving, but very slowly. She has uncontrolled diabetes and severe neuropathy. A new offloading device was provided for her approximately 2 weeks ago to help offload the left great toe. However, it caused an abrasion of her left medial ankle and was thus discontinued because of that. It appears that since I had last seen her, she developed what appeared to be a draining abscess on the left leg associated with what was felt to be cellulitis. The patient presented to the Emergency Department with this and was admitted for further management. Apparently, it had started out with a lump 3 weeks ago and then gradually had grown in size and then opened up on its own and drained. Also, her glucose was noted to be quite uncontrolled as well. PAST MEDICAL HISTORY: Significant for history of abscess, history of acute bronchitis, acute hyperglycemia, asymptomatic bacteriuria, cellulitis of the left foot, history of failure of outpatient treatment, gastroenteritis, intractable nausea and vomiting, metabolic acidosis, non-ST elevation [place], pharyngitis, history of sepsis, difficulty ambulating, unable to ambulate, UTIs, viral syndrome. She is currently undergoing a workup for pulmonary nodule as well. This is planned to happen at [facility]. PAST SURGICAL HISTORY: , I and D for an abscess. Also, she has had diabetic foot ulcers, which have all healed. SOCIAL HISTORY: She is a past smoker. She quit 3 years ago, but had smoked for 19 years. There is no alcohol use. She lives with her boyfriend in a trailer. FAMILY HISTORY: Significant for diabetes, coronary artery disease, hypertension and cancer. ALLERGIES: PENICILLIN which causes a rash. MEDICATIONS: As follows: She is on albuterol nebs 3 mL q.6 hours, insulin Humalog sliding scale, Tylenol q.6 hours p.r.n., Cozaar 25 mg p.o. daily, Lomotil 1 tablet p.o. daily, Plavix 75 daily, regular insulin sliding scale, Amaryl 8 mg p.o. daily, Zocor 20 at bedtime, metoprolol 50 mg p.o. b.i.d., Pepcid 20 mg p.o. b.i.d., aspirin 81 b.i.d., vancomycin 1250 mg IV daily, Singulair 10 mg p.o. q.p.m., metformin 500 before meals once a day, Vistaril 25 p.o. t.i.d. and Bentyl 10 mg p.o. t.i.d. REVIEW OF SYSTEMS: Currently, she has no fevers or chills. She had some redness associated with the ulcer in the beginning, but it is definitely improved. No nausea or vomiting. No fevers or chills. No chest pains or [place], [place] REPORT OF CONSULTATION NAME: YOVANI TATE UNIT #: [id number] ROOM: [facility] DOCTOR: TIFFANIE HUNTER M.D. BIRTHDATE: [birth year] shortness of breath and no other specific complaints. She thinks the wound on her toe is doing well, it has callused over. It is not draining anything. She does not report any pain with ulcer on her left anterior leg. Her sugars normally run anywhere from 300-500, she had reported in the past that she does not like it when her sugar gets low. She does not feel well, but it has been in the 100s since she has been here in the hospital. Her other review of systems of constitutional, HEENT, cardiovascular, respiratory, abdominal, , neurological, psychiatric, endocrine are negative. PHYSICAL EXAMINATION: VITAL SIGNS: Temperature is 97.4, pulse of 94, respirations 16, blood pressure is 154/83. GENERAL: This is a pleasant female who appears older than her stated age, in no acute distress, slightly pale. HEENT: Oropharynx is clear, she is edentulous. Extraocular movements are intact. Sclerae nonicteric. NECK: There is no JVD. LUNGS: Clear. CARDIOVASCULAR: S1, S2 regular rate and rhythm. ABDOMEN: Obese, soft and nontender, positive bowel sounds. EXTREMITIES: There is no calf pain or edema. She has positive pedal pulses. The left ankle ulcer is measuring 1 x 1 x 0.01 and it is healing and it is improving even from the pictures from 3 days ago. It looks even smaller than before. There is an open ulcer of the left anterior tibia that currently is open approximately 1.4 x 1.4 cm in length and width but 0.1 cm in depth. There is a moderate amount of necrotic tissue present in the base of the wound. The area of erythema that was noted on the initial picture is much improved from when she was admitted, it is not currently tender and there is no overt cellulitis at this time. The left great toe ulcer is callused over and appears stable and presently callused over. LABORATORY DATA: Today show white count of 7 down from 10.2, hemoglobin is 12, platelets are 189. She did have a left shift of 74% when she came, now they are down to 60. Her glucose was elevated at 493 when she presented and currently is 250. Her potassium is 5.1, BUN of 16 and creatinine is 0.83, sodium is 140. She did have a wound culture which grew moderate gram-positive cocci, sensitive to penicillin, but resistant to tetracycline and clindamycin. As there was a moderate amount of necrotic tissue present in the base of the wound, I had recommended debridement. The patient is familiar with debridement as she comes to the Wound Clinic on a weekly basis. We did obtain consent for it. The area was prepped with Cetacaine spray and a curette was utilized to debride the entire area of fibrin, slough and subcutaneous tissue. There was a moderate amount of bleeding that was controlled with pressure. Post-debridement measurements are unchanged. The patient tolerated the debridement well. It did not appear that it was a deeper tunneling wound after debridement. ASSESSMENT AND PLAN: Abscess of the left anterior leg with cellulitis when she presented. The cellulitis is definitely resolved or improved. She is stable. I would recommend TheraHoney and Bactroban for this wound. Oral antibiotics could be recommended per ID. Unfortunately, it is resistant to clindamycin and [place], [place] REPORT OF CONSULTATION NAME: YOVANI TATE UNIT #: [id number] ROOM: 504 DOCTOR: ELSA Cardozo,TIFFANIE BIRTHDATE: [birth year] she is allergic to penicillin, and it is resistant to tetracycline as well, so quinolone may be our only option unless she is a candidate for Zyvox, but we will leave this up to Infectious Disease. I have written orders for wound care to continue and for her to follow up in the Wound Clinic when she is discharged. She should follow up this week. The left great toe ulcer is stable. There is callus formation. We will address this when she comes to the Wound Clinic again. Unfortunately, she is not a candidate for contact cast due to her difficulty with balance. The offloading device unfortunately that we have provided did cause a new abrasion on her left ankle, so offloading is somewhat difficult, but we will continue to offload her with a postop shoe. She is on a collagen dressing at home, which she should continue until she is seen in the Wound Clinic. Her glucose is markedly uncontrolled. Her last hemoglobin A1c was 12.7 and that was 12/09/2016, so she has uncontrolled diabetes and I did discuss this with her that this really needs to get under control, so we can heal her diabetic ulcers. She has had conference with the dietitian regarding her diabetes; however, it does remain an issue. TIFFANIE HUNTER MD CM:CONSTR:REPORT OF CONSULTATION 1028 01/09/17 1521 interface
--- NOTE | ~2016-12-27 | WRIGHTHP ---
[place], [place] PATIENT HISTORY AND PHYSICAL EXAM NAME: YOVANI TATE [facility] #: [id number] UNIT #: [id number] ROOM: 504 DOCTOR: DAY TURNER MD BIRTHDATE: [birth year] DOS: 12/27/2016 HISTORY OF PRESENT ILLNESS: The patient is a 56-year-old female with a past medical history of, 1. Type 2 diabetes mellitus, uncontrolled. 2. Mixed hyperlipidemia. 3. Chronic lower back pains. 4. Diabetic polyneuropathy. 5. History of benign essential hypertension. 6. History of coronary artery disease of the [place] vessels. 7. Gastric erosions and ulcers on EGD. The patient presented to the Emergency Department with 3 weeks' complaints of worsening of infection and abscess in her left leg, which was being followed by [facility] as an outpatient. The abscess had burst and drained today. Cultures were sent from the ER and patient recommended for admission and further management with IV antibiotic treatment after the first dose was given in the ER. After admission, no complaints of chest pain, shortness of breath. No GI or urinary symptoms. SYSTEMS REVIEW: LUNGS: No increasing shortness of breath or wheezing. GASTROINTESTINAL: No nausea, vomiting, diarrhea or constipation. CARDIOVASCULAR: No chest pains or palpitations. FAMILY HISTORY: Noncontributory. HOME MEDICATIONS: The patient takes losartan, Plavix, glimepiride, simvastatin, metoprolol, famotidine, aspirin, Singulair, metformin, hydroxyzine, dicyclomine, Lomotil. ALLERGIES: KNOWN ALLERGIES TO PENICILLIN. PHYSICAL EXAMINATION: GENERAL: Alert and oriented x 3, in no visible distress, moderately obese. HEENT AND NECK: Extraocular movements are intact. Sclerae are anicteric. Oral mucosa is moist and clean. No obvious facial weakness. Neck is supple without any lymphadenopathy. No thyromegaly. No JVD. No carotid arterial bruits. LUNGS: Clear to auscultation. No wheezing. No rhonchi. CARDIOVASCULAR SYSTEM: Heart rate is regular in rate and rhythm. S1 and S2 normally audible. No significant murmur or any other abnormal cardiac sounds. ABDOMEN: Soft, nontender. No obvious organomegaly. Bowel sounds are present. No obvious herniation. EXTREMITIES: Without significant cyanosis or edema. Warm to touch. The patient has a drained abscess on the inner side of the left ankle with cellulitis just above her left ankle. CENTRAL NERVOUS SYSTEM: Alert and oriented x 3. Cranial nerves II-XII are intact. Speech is normal. The patient is able to move all extremities. Normal muscle strength. Deep tendon reflexes are equal on both sides. Plantars were downgoing. [place], [place] PATIENT HISTORY AND PHYSICAL EXAM NAME: YOVANI TATE UNIT #: [id number] ROOM: [facility] DOCTOR: DAY TURNER MD BIRTHDATE: [birth year] IMPRESSION AND PLAN: 1. The patient has uncontrolled type 2 diabetes mellitus with peripheral polyneuropathy, leg ulcers, cellulitis and abscess, progressively getting worse for 3 weeks. The patient was following up with wound center. The patient admitted and her wound abscess spontaneously drained today. Cultures were sent. I am consulting Dr. Villagran, the legal process specialist and Dr. Julia Meier, the ID specialist to help with management with IV antibiotics and local wound care. 2. Type 2 diabetes mellitus, uncontrolled. The patient has been noncompliant with diet. The patient's home insulin was continued and she was kept on a no concentrated sweet diet and blood sugars will be monitored and treated accordingly. 3. Coronary artery disease of [place] vessels without chest pains. The patient has history of 2 stent placement in the past, presently asymptomatic. 4. Benign essential hypertension. I will continue with treatment and monitor blood pressures and adjust treatment accordingly. DAY TURNER MD CM:HISPHYS:PATIENT HISTORY AND PHYSICAL EXAMINATION 20 40 DAY TURNER MD 12/27/162140 interface
--- NOTE | ~2016-12-27 | CON ---
[place], [place] REPORT OF CONSULTATION NAME: YOVANI TATE UNIT #: [id number] ROOM: 504 DOCTOR: SERA AMBROSE,NOVEMBER BIRTHDATE: [birth year] DOS: 12/27/2016 HISTORY OF PRESENT ILLNESS: The patient is a pleasant 56-year-old female for whom we have been consulted for a left lower extremity cellulitis and small abscess. She states it developed there a couple of weeks ago as a lump, and she has had increasing redness around it. She has significant neuropathy, but she did have some burning in the area. Denies any fevers or chills, feels well otherwise. She has had no antibiotics for which she was started on IV clindamycin and then switched to vancomycin. Cultures were obtained. Gram stain shows Gram-positive cocci in pairs. Blood cultures are pending. PAST MEDICAL HISTORY: As above as well as obesity, diabetes for which she makes no attempt to control for approximately 20 years. She states she does not attempt to control her blood sugar as she becomes hypoglycemic and that is not tolerable. She also has a lung nodule for which she is to have surgery on 01/07/2017 at another hospital. She has a left toe diabetic foot ulcer for which she follows up with the wound clinic here. PAST MEDICAL HISTORY: Includes diverticulosis, diabetes, obesity, lung nodule. ALLERGIES: Include PENICILLIN, which cause a rash. SOCIAL HISTORY: Nonsmoker, nondrinker, no illicit drug use. FAMILY MEDICAL HISTORY: Significant for diabetes, coronary artery disease, hypertension and cancer. LABORATORY DATA: WBC is 10.2, platelets 174. BUN 18, creatinine 1.09. LFTs within normal limits. Albumin 3.0. Glucose 435. REVIEW OF SYSTEMS: Alert and oriented. Denies any fevers, chills, nausea, vomiting or diarrhea. She does state she does have intermittent diarrhea due to her diverticulosis. No rash or itch. No recent fevers or shaking chills. No headache or dizziness. No chest pain or palpitations. Again, she had a burning of the left leg. The area has been there for approximately 3 weeks, initially as a lump 3 weeks ago with progressive redness with some swelling, drainage and pain. Further review of systems is unremarkable. CURRENT MEDICATIONS: Include Cozaar, Lomotil, Plavix, Humalog, Amaryl, Zocor, Lopressor, Pepcid, aspirin, vancomycin, Singulair, Glucophage, Restoril, Bentyl. PHYSICAL EXAMINATION: VITAL SIGNS: Showed temperature 98.1, pulse 72, respirations 16, BP 152/79: GENERAL: A 56-year-old obese female in no acute distress. HEAD, EYES, EARS, NOSE AND THROAT: Normocephalic, no thrush. Edentulous. NECK: Supple. LUNGS: Clear to auscultation bilaterally. Respirations even and unlabored. HEART: Regular rhythm. No murmur appreciated. ABDOMEN: Soft, obese, nontender. Positive bowel sounds. EXTREMITIES: Left lower extremity: Left plantar great toe diabetic ulcer is [place], [place] REPORT OF CONSULTATION NAME: YOVANI TATE UNIT #: [id number] ROOM: [facility] DOCTOR: SERA AMBROSE,NOVEMBER BIRTHDATE: [birth year] rather dry, appears to be more callus than anything. The left lower leg with erythema. Small areas of induration in the center with some scabbing, I was unable to express couple of drops of ray purulent discharge. There is no odor. She has no pain with manipulation of it, demonstrating her neuropathy. SKIN: Otherwise, warm, dry and intact, free of rashes. ASSESSMENT: Left leg small abscess with cellulitis. PLAN: I did express some purulence and obtained a fresh culture to make sure we had an adequate culture. Wound was rather dry upon the original examination. I will continue the IV vancomycin and anticipate changing her over to oral antibiotics in the next day or so. Depending on following her clinical course, she may need little more adequate drainage of the purulence. Case discussed with Dr. Silvreio Price. DOMINIC ARNOL ZAMORA SILVERIO PRICE MD CM:CONSTR:REPORT OF CONSULTATION 40 12/27/162036 interface
[2016-12-27 12:59] VITALS: BP 172/80
[2016-12-27 13:25] LABS: BASO % 0.3 % (0.0-1.0); EOS # 0.1 10*3/uL (0.0-0.4); EOS % 1.1 % (1.0-4.0); HEMATOCRIT 38.9 % (37.0-47.0); HEMOGLOBIN 12.8 g/dl (12.0-16.0); LYMPH # 1.9 10*3/uL (1.3-4.4); LYMPH % 18.2 % (27.0-41.0); MEAN CELL VOLUME 88.2 fl (81.0-99.0); MEAN CORPUSCULAR HGB CONC 32.9 g/dl (33.0-37.0); MEAN PLATELET VOLUME 12.5 fl (9.6-12.3); MONO # 0.6 10*3/uL (0.1-1.0); MONO % 5.8 % (3.0-9.0); NEUT # 7.6 10*3/uL (2.3-7.9); NEUT % 74.4 % (47.0-73.0); PLATELET COUNT AUTOMATED 174 10*3/uL (130-400); RED BLOOD COUNT 4.41 10*6/uL (4.10-5.10); RED CELL DISTRI WIDTH 12.6 % (0-14.5); WHITE BLOOD COUNT 10.2 10*3/uL (4.8-10.8)
[2016-12-27 13:47] LABS: ALKALINE PHOSPHATASE 127 U/L (45-117); BILIRUBIN, TOTAL 0.4 mg/dl (0.2-1.0); BUN 18 mg/dl (7-24); CARBON DIOXIDE 26 mmol/L (21-32); CHLORIDE 98 mmol/L (98-107); EST GLOM FILT AFRICAN AMERICAN > 60 ml/min; GLUCOSE 435 mg/dL (65-99); POTASSIUM 4.8 mmol/L (3.5-5.1); SGOT/AST 15 IU/L (3-35); SGPT/ALT 17 U/L (12-78); SODIUM 135 mmol/L (136-145)
[2016-12-27] MEDS ORDERED: AMARYL4 MG PO (14:58)
[2016-12-27] MEDS ORDERED: VITAMIN D50000 I3 PO (14:58)
[2016-12-27] MEDS ORDERED: INCRUSE EL62.5 MCG/A IH (14:59)
[2016-12-27] MEDS ORDERED: ZANTAC 150150 MG PO (14:59)
[2016-12-27] MEDS ORDERED: METFORMIN500 MG PO (15:00)
[2016-12-27] MEDS ORDERED: NOVOLOG10 ML SQ (15:00)
[2016-12-27] MEDS ORDERED: LOMOTIL 0.025 M1 TA1 PO (15:00)
[2016-12-27] MEDS ORDERED: BENTYL10 MG PO (15:01)
[2016-12-27] MEDS ORDERED: SINGULAIR10 M1 PO (15:01)
[2016-12-27] MEDS ORDERED: ASPIRIN81 MG PO (15:01)
[2016-12-27] MEDS ORDERED: ACTOS15 M1 PO (15:02)
[2016-12-27] MEDS ORDERED: VISTARIL25 M2 PO (15:02)
[2016-12-27] MEDS ORDERED: LOSARTAN POTASS25 M1 PO (15:03)
[2016-12-27] MEDS ORDERED: LOPRESSOR50 M1 PO (15:03)
[2016-12-27 15:05] VITALS: BP 169/76
[2016-12-27 16:00] VITALS: BP 152/79
[2016-12-27 20:00] VITALS: BP 125/60
[2016-12-28] VITALS: BP 117/62
[2016-12-28 06:05] LABS: BASO % 0.4 % (0.0-1.0); EOS # 0.1 10*3/uL (0.0-0.4); EOS % 1.6 % (1.0-4.0); HEMOGLOBIN 11.6 g/dl (12.0-16.0); LYMPH % 28.8 % (27.0-41.0); MEAN CELL VOLUME 87.7 fl (81.0-99.0); MEAN CORPUSCULAR HGB 29.1 pg (27.0-31.0); MEAN CORPUSCULAR HGB CONC 33.1 g/dl (33.0-37.0); MEAN PLATELET VOLUME 12.5 fl (9.6-12.3); MONO # 0.6 10*3/uL (0.1-1.0); MONO % 8.3 % (3.0-9.0); NEUT # 4.1 10*3/uL (2.3-7.9); NEUT % 60.8 % (47.0-73.0); PLATELET COUNT AUTOMATED 156 10*3/uL (130-400); RED BLOOD COUNT 3.99 10*6/uL (4.10-5.10); RED CELL DISTRI WIDTH 12.7 % (0-14.5); WHITE BLOOD COUNT 6.8 10*3/uL (4.8-10.8)
[2016-12-28 06:21] LABS: BUN 15 mg/dl (7-24); CARBON DIOXIDE 29 mmol/L (21-32); CHLORIDE 102 mmol/L (98-107); EST GLOM FILT AFRICAN AMERICAN > 60 ml/min; GLUCOSE 322 mg/dL (65-99); POTASSIUM 4.5 mmol/L (3.5-5.1); SODIUM 138 mmol/L (136-145)
[2016-12-28 08:00] VITALS: BP 140/58
[2016-12-28 12:00] VITALS: BP 112/55
[2016-12-28 16:00] VITALS: BP 133/65
[2016-12-28 20:00] VITALS: BP 178/84
[2016-12-29] VITALS: BP 145/69
[2016-12-29 07:42] LABS: BASO % 0.3 % (0.0-1.0); EOS # 0.1 10*3/uL (0.0-0.4); HEMATOCRIT 37.3 % (37.0-47.0); HEMOGLOBIN 12.5 g/dl (12.0-16.0); LYMPH # 1.7 10*3/uL (1.3-4.4); LYMPH % 25.5 % (27.0-41.0); MEAN CELL VOLUME 87.4 fl (81.0-99.0); MEAN CORPUSCULAR HGB 29.3 pg (27.0-31.0); MEAN CORPUSCULAR HGB CONC 33.5 g/dl (33.0-37.0); MONO # 0.3 10*3/uL (0.1-1.0); MONO % 4.6 % (3.0-9.0); NEUT # 4.6 10*3/uL (2.3-7.9); NEUT % 68.3 % (47.0-73.0); PLATELET COUNT AUTOMATED 174 10*3/uL (130-400); RED BLOOD COUNT 4.27 10*6/uL (4.10-5.10); RED CELL DISTRI WIDTH 12.5 % (0-14.5); WHITE BLOOD COUNT 6.8 10*3/uL (4.8-10.8)
[2016-12-29 08:00] VITALS: BP 148/67
[2016-12-29 08:05] LABS: BUN 15 mg/dl (7-24); CARBON DIOXIDE 27 mmol/L (21-32); CHLORIDE 103 mmol/L (98-107); EST GLOM FILT AFRICAN AMERICAN > 60 ml/min; GLUCOSE 302 mg/dL (65-99); POTASSIUM 4.5 mmol/L (3.5-5.1); SODIUM 140 mmol/L (136-145)
[2016-12-29 12:00] VITALS: BP 140/7; BP 140/73
[2016-12-29 16:00] VITALS: BP 145/69
[2016-12-29 19:58] VITALS: BP 139/69
[2016-12-30 00:45] VITALS: BP 131/65
[2016-12-30 06:22] LABS: BASO % 0.4 % (0.0-1.0); EOS # 0.1 10*3/uL (0.0-0.4); EOS % 1.3 % (1.0-4.0); HEMATOCRIT 36.2 % (37.0-47.0); HEMOGLOBIN 12.1 g/dl (12.0-16.0); LYMPH # 2.2 10*3/uL (1.3-4.4); LYMPH % 31.8 % (27.0-41.0); MEAN CELL VOLUME 87.7 fl (81.0-99.0); MEAN CORPUSCULAR HGB 29.3 pg (27.0-31.0); MEAN CORPUSCULAR HGB CONC 33.4 g/dl (33.0-37.0); MEAN PLATELET VOLUME 12.1 fl (9.6-12.3); MONO # 0.4 10*3/uL (0.1-1.0); MONO % 5.6 % (3.0-9.0); NEUT # 4.2 10*3/uL (2.3-7.9); NEUT % 60.8 % (47.0-73.0); PLATELET COUNT AUTOMATED 189 10*3/uL (130-400); RED BLOOD COUNT 4.13 10*6/uL (4.10-5.10); RED CELL DISTRI WIDTH 12.7 % (0-14.5)
[2016-12-30 06:35] LABS: BUN 16 mg/dl (7-24); CARBON DIOXIDE 25 mmol/L (21-32); CHLORIDE 105 mmol/L (98-107); EST GLOM FILT AFRICAN AMERICAN > 60 ml/min; GLUCOSE 250 mg/dL (65-99); POTASSIUM 5.1 mmol/L (3.5-5.1); SODIUM 140 mmol/L (136-145)
[2016-12-30 08:00] VITALS: BP 154/83
[2016-12-30 12:00] VITALS: BP 105/59
[2016-12-30] MEDS ORDERED: DOXYCYCLINE100 M3 PO (14:57)
[2016-12-30 16:00] VITALS: BP 134/75
== END 2016-12-30 18:14 | disposition home or self-care (01) | DRG 571 ==
LOC: ED 12:54 → EDHOLD 14:29 → 5E 14:29
PROVIDERS: Internal Medicine; Nurse Practitioner Family
PROC: 0JBR0ZZ Excision of Left Foot Subcutaneous Tissue and Fascia, Open Approach (ICD-10-PCS; principal; 2016-12-30)
DX: L03.116 Cellulitis of left lower limb (principal); E44.1 Mild protein-calorie malnutrition; E11.42 Type 2 diabetes mellitus with diabetic polyneuropathy; E11.622 Type 2 diabetes mellitus with other skin ulcer; L97.929 Non-pressure chronic ulcer of unspecified part of left lower leg with unspecified severity; L02.416 Cutaneous abscess of left lower limb; E11.65 Type 2 diabetes mellitus with hyperglycemia; I25.10 Atherosclerotic heart disease of native coronary artery without angina pectoris; I10 Essential (primary) hypertension; E78.2 Mixed hyperlipidemia; K25.9 Gastric ulcer, unspecified as acute or chronic, without hemorrhage or perforation; G89.29 Other chronic pain; M54.5 Low back pain; Z83.3 Family history of diabetes mellitus; Z82.49 Family history of ischemic heart disease and other diseases of the circulatory system; Z88.0 Allergy status to penicillin; Z80.9 Family history of malignant neoplasm, unspecified; Z68.34 Body mass index [BMI] 34.0-34.9, adult

== ENCOUNTER → 2017-01-05 | Outpatient (CLI) | payer OTHER ==
[~2017-01-05] MED LIST changes: +ACTOS15 M1 PO; +AMARYL4 MG PO; +ASPIRIN81 MG PO; +BENTYL10 MG PO; +INCRUSE EL62.5 MCG/A IH; +LOMOTIL 0.025 M1 TA1 PO; +LOPRESSOR50 M1 PO; +LOSARTAN POTASS25 M1 PO; +METFORMIN500 MG PO; +NOVOLOG10 ML SQ; +SINGULAIR10 M1 PO; +VISTARIL25 M2 PO; +VITAMIN D50000 I3 PO; +ZANTAC 150150 MG PO
--- NOTE | ~2017-01-05 | PR ---
[place], [place] PROGRESS NOTE NAME: YOVANI TATE [facility] #: [id number] UNIT #: [id number] ROOM: DOCTOR: ELSA CardozoTIFFANIE BIRTHDATE: [birth year] DOS: 01/05/2017 CHIEF COMPLAINT: Followup of diabetic foot ulcer and abscess of the left leg. HISTORY OF PRESENT ILLNESS: The patient has a chronic diabetic foot ulcer of the left great toe that has been gradually improving. She has had it for approximately 12-13 weeks. She has been coming to the Wound Clinic for 9 weeks. The wound has been making gradual progress; however, we tried to get her an offloading device to help offload the area. However, this caused an abrasion on her ankle as well as an irritation on the left anterior tibia. This anterior tibial area eventually became complicated with an infection and abscess that led to hospitalization last week with a large open wound with necrotic tissue. I had seen her in the hospital last week and the wound at that time was debrided and cultures were obtained while she was in the hospital. She was discharged on TheraHoney and Bactroban. She had Infectious Disease following the patient and ID discharged her on doxycycline. The patient comes to us for followup post recent hospitalization. She is awaiting workup for her pulmonary biopsy. Apparently, this is going to be done soon for pulmonary nodules. Apparently, in addition she states her sugars are really still uncontrolled. They were much improved in the hospital when she was getting extra coverage with her sliding scale. However, since she has been seeing a new endocrine doctor that insulin regimen has been changed quite a bit. She has a followup appointment later this week with Dr. Garcia. So, hopefully she can discuss her sugars with her as this is definitely important for wound healing. She has no complaints as far as her left great toe. She thinks she is doing much better. There is very minimal scant drainage. She thinks the left ankle abrasion is definitely improved as well and she has no specific complaints regarding the tibial wound. She is using TheraHoney on it. It is not painful, not tender. She was discharged on doxycycline as stated above. PHYSICAL EXAMINATION: Her vitals are stable. Temperature 97.7, pulse is 68, respirations 18, blood pressure is 120/68. Wound #4, which is on the left great toe is measuring 0.1 x 0.1 x 0.1. Actually, it is covered in a fairly thick callus and it is difficult to tell if it is even open at this time. Wound #5 is the abrasion and is essentially epithelialized at 0.1 x 0.1 x 0.1. Wound #6 is new and it is measuring 0.8 x 0.8 x 0.1. There is a moderate amount of fibrin slough present in the base of the wound. A debridement was done of the two wounds on the left great toe and the left anterior tibia. They were both selective debridement only where the tissue removed was nonviable, hyperkeratotic tissue for the callused area and for the abscessed area, just fibrin slough and biofilm. The instrument used was a curette for the abscessed area, 100% of the wound was debrided and a #15 blade for the callused area, 100% of the area was debrided of nonviable, hyperkeratotic tissue. There was no bleeding with either of these wounds. The patient tolerated the debridement well. Post-debridement measurements are as follows; the left great toe wound is measuring 0.3 x 0.1 x 0.1 for the abscessed area. It is measuring 0.9 x 1.1 x 0.1. The cultures from her hospital stay showed Staph aureus, moderate amount, and then subsequent [place], [place] PROGRESS NOTE NAME: YOVANI TATE Rob UNIT #: [id number] ROOM: DOCTOR: TIFFANIE HUNTER M.D. BIRTHDATE: [birth year] culture with light growth. It was sensitive to penicillin, but resistant to clindamycin, erythromycin and tetracycline. THE PATIENT IS ALLERGIC TO PENICILLIN on her medical charts. The patient was discharged on doxycycline; however, the organism is resistant to this antibiotic. An attempt was made to reach out with Dr. Meier, who had put the patient on doxycycline; however, she is on vacation this week; therefore, I will go ahead and change the antibiotics to Cipro 500 twice a day for 1 week for now as she is allergic to penicillins. The organism was resistant to tetracycline, so doxycycline is really not going to be helpful and also she was sensitive to Bactrim; however, the patient did have a slightly high potassium of 5.1, so I would prefer to use a different agent such as quinolone. We will go ahead with 500 p.o. b.i.d. There is not any overt cellulitis, but there is some localized erythema around the wound as before. ASSESSMENT AND PLAN: Abscess of the left anterior leg. The wound is stable. We will switch the antibiotics to Cipro 500 twice a day, continue with TheraHoney and Bactroban and have her come back in 1 week. The left great toe diabetic ulcer is gradually improving. Hopefully, it will continue to improve and I expect it to be healed soon. We do have a problem with offloading unfortunately and this does remain a challenge at times. The abrasion appears to be healed, but we would like to keep the area protected with a foam. Follow up in 1 week. TIFFANIE HUNTER MD CM:PNTRANS [id number] TIFFANIE HUNTER M.D. 01/06/17 0412 interface
== END ==
LOC: WOUNDCARE 02:12
DX: E11.621 Type 2 diabetes mellitus with foot ulcer (principal); L97.522 Non-pressure chronic ulcer of other part of left foot with fat layer exposed; S90.512D Abrasion, left ankle, subsequent encounter; L02.416 Cutaneous abscess of left lower limb; X58.XXXD Exposure to other specified factors, subsequent encounter

== ENCOUNTER → 2017-01-12 | Outpatient (CLI) | payer OTHER ==
--- NOTE | ~2017-01-12 | PR ---
[place], [place] PROGRESS NOTE NAME: YOVANI TATE [facility] #: [id number] UNIT #: [id number] ROOM: DOCTOR: ELSA CardozoTIFFANIE BIRTHDATE: [birth year] DOS: 01/12/2017 CHIEF COMPLAINT: Followup of a diabetic foot ulcer and open wound of the left leg. HISTORY OF PRESENT ILLNESS: The patient has had a diabetic foot ulcer of the left great toe for 13-14 weeks. She has been coming to the Wound Clinic for 9 weeks. Last week, the wound was almost healed and we had suggested using a foam to pad the area and protect it. She does state that she has been using her postop shoe like she normally has, it is a little loose sometimes and does move around a little bit, and has walked quite a bit yesterday, but otherwise has not done anything different. She also was placed on ciprofloxacin last week for a wound on her left anterior tibia that grew out some Staph that was sensitive to ciprofloxacin. She had initially been placed on doxycycline by ID; however, the cultures were resistant to the doxycycline and she was continued on TheraHoney last week as well. She has no problems with the antibiotics. No pain is noted. No fevers or chills. She still has her biopsy on hold due to the open wounds now. Her sugars remain quite high according to the patient. There has been no change in the sugars. PHYSICAL EXAMINATION: VITAL SIGNS: Her temperature is 97.7, pulse is 68, respirations 18, blood pressure is 118/64. WOUND EXAM: The wound on the left great toe is obviously bigger. It is initially measuring 0.3 x 0.2 x 0.3. There is a large amount of undermining and when I pressed on the area, there is some serosanguineous drainage coming out. There is a large amount of callus, it is macerated, that is quite extensive in comparison to the last time we had seen her. It is not overtly red or tender. The left anterior tibial wound is measuring 0.9 x 1 x 0.1, but looks improved. The erythema is much improved. It is fairly clean. There is a minimal necrotic tissue present in the base of the wound, but overall the periwound erythema is much improved as well. A debridement was done of both of these wounds. The initial debridement was done of the left great toe. Instrument utilized was a scalpel and a forceps and scissors, much of the devitalized tissue was removed. Subcutaneous tissue was also removed and the wound was much larger post debridement. Post debridement a culture was obtained as well. The post-debridement measurements of the left great toe are as follows, 1.5 x 2 x 0.3 in depth. There was a moderate amount of bleeding that was controlled with pressure. A debridement was also done of the left anterior leg wound that was a subcutaneous debridement as well. Tissue removed was fibrin, slough and subcutaneous tissue. This was accomplished with a curette. There was minimal bleeding that was controlled with pressure. Post-debridement measurements are unchanged. ASSESSMENT AND PLAN: Diabetic ulcers of the left great toe which is worse this week than last week when I think that the foam may have been rubbing or moving creating some sort of friction that caused a severe callus with maceration. We will discontinue the foam and use a Maxorb Silver to help dry up the area further and a bulky dressing and she will continue with her postop shoe. We will see if we can have the technical inspector come back next week while she is here to see if we can further adjust any of her footwear to see if we can offload the [place], [place] PRO[facility] [id number] UNIT #: [id number] ROOM: DOCTOR: TIFFANIE HUNTER M.D. BIRTHDATE: [birth year] area better right now. She just has a regular postop shoe, the walking boot that was provided to her in the past; however, caused an abrasion of her ankle as well as possibly continued to the abscess that was contributed to that, so I do not know if she would be a candidate to go back to that, perhaps adjustments could be made or if there is another device that we can try. She has difficulty with balance and cannot use a contact cast. As far as her abscessed wound goes, the erythema is much improved. We can discontinue the antibiotics and I would just go ahead and use a Maxorb Silver for now as well for this instead of continuing with TheraHoney and Bactroban and have her follow up in 1 week. Hopefully, the wounds will be improved by then. TIFFANIE HUNTER MD CM:RENAY [phone] TIFFANIE HUNTER M.D. 01/12/17 2214 interface
== END ==
LOC: WOUNDCARE 02:06
DX: E11.621 Type 2 diabetes mellitus with foot ulcer (principal); L97.522 Non-pressure chronic ulcer of other part of left foot with fat layer exposed

== ENCOUNTER → 2017-01-19 | Outpatient (CLI) | payer OTHER ==
--- NOTE | ~2017-01-19 | PR ---
[place], [place] PROGRESS NOTE NAME: YOVANI TATE [facility] #: [id number] UNIT #: [id number] ROOM: DOCTOR: ELSA CardozoTIFFANIE BIRTHDATE: [birth year] DOS: 01/19/2017 CHIEF COMPLAINT: Followup of diabetic toe ulcer on the left foot, as well as open ulcer of the left anterior tibia. HISTORY OF PRESENT ILLNESS: The patient is a poorly controlled diabetic with neuropathy who has had a wound on her left great toe for 14 to 15 weeks. Last week, the wound margins were much bigger. There was maceration noted after we had tried to protect the area with a foam bandage, so this definitely was worse. She was changed to Maxorb Silver and comes in today for her routine visit, so the wound is located in the left great toe plantar aspect. She has a postop shoe for offloading. She cannot tolerate a contact cast due to balance issues. She also had more of a walking boot that was new, that was tried; however, it created a wound on her left anterior tibia that ended up creating an abscess and the patient has been admitted for antibiotic therapy. In any case, the patient comes in today without any specific complaints. She is asking whether she can have her lung biopsy. She has no fevers or chills. No nausea or vomiting. No other specific complaints. OBJECTIVE: VITAL SIGNS: Stable. Temperature is 98.1, pulse of 64, respirations 18, blood pressure is 124/80. EXTREMITIES: The wound on her left great toe is measuring 1.0 x 0.4 x 0.1 and it looks much better, it has filled in quite a bit. There is still some thick callus around it. There is no sign of infection. The other wound is located in the left anterior tibia and is measuring slightly smaller at 0.8 x 0.9 x 0.1. There is minimal fibrin slough present. The periwound does not appear inflamed at all. There is no sign of purulence or tenderness. Debridement was done of both of these wounds on the left great toe. The instrument utilized was a #15 blade to remove nonviable tissue only, hyperkeratosis. There was no bleeding. The patient tolerated the debridement well. The post-debridement measurements were 0.7 x 2.1 x 0.1. There was selective debridement done on the anterior tibial wound and that was 0.8 x 0.9 x 0.1 and there was no bleeding. It was a selective only, a curette was utilized. The patient tolerated the debridement well. ASSESSMENT AND PLAN: Left diabetic toe ulcer, which is definitely improved from last week. The culture did show Staph aureus that was multidrug resistant to orals except for linezolid. It does not appear to be acutely infected. In my opinion, she seems to be responding to the silver and I would continue with this dressing for now. For the left medial leg wound, it is stable, it seems to be improving and I would continue with the Maxorb Silver for now as well. Hopefully, we will be able to change it to a collagen in the near future. I did put a little bit of extra felt in her postop shoe to see if we can help offload that left great toe. Offloading is really the issue is here, so we will see how she responds to this. Follow up in one week. [place], [place] PROGRESS NOTE NAME: YOVANI TATE UNIT #: [id number] ROOM: DOCTOR: TIFFANIE HUNTER M.D. BIRTHDATE: [birth year] TIFFANIE HUNTER MD CM:PNTRANS [id number] TIFFANIE HUNTER M.D. 01/19/17 1347 interface
== END ==
LOC: WOUNDCARE 01:58
DX: E11.621 Type 2 diabetes mellitus with foot ulcer (principal); L97.522 Non-pressure chronic ulcer of other part of left foot with fat layer exposed; E11.622 Type 2 diabetes mellitus with other skin ulcer; L97.821 Non-pressure chronic ulcer of other part of left lower leg limited to breakdown of skin; E11.40 Type 2 diabetes mellitus with diabetic neuropathy, unspecified

== ENCOUNTER → 2017-01-26 | Outpatient (CLI) | payer OTHER ==
--- NOTE | ~2017-01-26 | PR ---
[place], [place] PROGRESS NOTE NAME: YOVANI TATE [facility] #: [id number] UNIT #: [id number] ROOM: DOCTOR: ELSA CardozoTIFFANIE BIRTHDATE: [birth year] DOS: 01/26/2017 WOUND CARE FOLLOWUP NOTE CHIEF COMPLAINT: Diabetic toe ulcer of the left foot and an open ulcer of the left anterior tibia. HISTORY OF PRESENT ILLNESS: The patient has a diabetic foot ulcer on the left great toe for 15-16 weeks now. She has been coming to the wound clinic for 12 weeks. The wound had almost healed; however, after a foam bandage was applied, it became macerated. There was a new area of trauma to the wound and it ended up being bigger with the fissure-type wound. She also has a chronic ulcer of the left anterior tibia secondary to an abscess formation. She has no new specific complaints. She said her sugar was 170 today. No fevers, chills, or pain. She states that when she walks, her toe tends to lean more on its side and her significant other also states that he has noticed that as well. OBJECTIVE: VITAL SIGNS: Stable. Temperature 97.9, pulse of 78, respirations 18, blood pressure is 138/82. WOUND EXAMINATION: The wound is measuring 1.1 x 0.5 x 0.1 and it is an area where the original ulcer is, however, it also goes straight to the medial aspect through it like a fissure-type wound. It bleeds quite easily. There is no sign of infection. There is large amounts of hyperkeratosis around the wound. The next wound is measuring smaller at 0.8 x 0.6 x 0.1. There is minimal fibrin slough present. It does look a little bit smaller than it did last week. There is no periwound erythema, minimal fibrin slough. A selective debridement was done of both of these wounds. The tissue removed was hyperkeratosis, callus, fibrin slough. Instrument utilized was a #15 blade as well as a curette for smaller wound on the anterior tibia. There was moderate bleeding that was controlled with pressure. Post-debridement measurements for the toe wound are as follows 2 x 0.6 x 0.1 and the anterior tibia wound measurements are the same except for the depth of 0.2. ASSESSMENT AND PLAN: Chronic diabetic foot ulcer of the left great toe. We had trouble offloading this area. I tried to take some of the foam padding trying to offload the forefoot. I think that maybe perhaps just a little bit too tall and that it is causing her to lean pressure on her toe on the medial aspect of her toes, so I was able get 75% of the foam off there. We will use the collagen dressing for now and due to the wound looking very, very clean and still fissure type without actually, it is almost looks like laceration, 1 Steri-Strip was applied to see if we can keep the edges close together, this will probably last 2 days. The patient can take it off at her next dressing change. We will continue with the bulky dressing for now and have her follow up in the Wound Clinic in one week. For her medial lower leg wound, the wound is looking stable and smaller and slow to heal. We will use a collagen for now. Due to the fact that the patient's wound has been so stalled and difficult to heal, I would like to have her see Dr. Ward next week for another opinion regarding offloading to see if we can heal this wound a little faster. [place], [place] PROGRESS NOTE NAME: YOVANI TATE Rob UNIT #: [id number] ROOM: DOCTOR: TIFFANIE HUNTER M.D. BIRTHDATE: [birth year] TIFFANIE HUNTER MD CM:PNANALILIA [id number] TIFFANIE HUNTER M.D. 01/26/17 1505 interface
== END ==
LOC: WOUNDCARE 02:25
DX: E11.621 Type 2 diabetes mellitus with foot ulcer (principal); L97.522 Non-pressure chronic ulcer of other part of left foot with fat layer exposed; E11.622 Type 2 diabetes mellitus with other skin ulcer; L97.821 Non-pressure chronic ulcer of other part of left lower leg limited to breakdown of skin; L84 Corns and callosities

== ENCOUNTER → 2017-02-02 | Outpatient (CLI) | payer OTHER | LOC: WOUNDCARE 10:32 | DX: E11.621 Type 2 diabetes mellitus with foot ulcer (principal); L97.522 Non-pressure chronic ulcer of other part of left foot with fat layer exposed; S80.822D Blister (nonthermal), left lower leg, subsequent encounter; L02.416 Cutaneous abscess of left lower limb; X58.XXXD Exposure to other specified factors, subsequent encounter ==

== ENCOUNTER → 2017-02-06 | Outpatient (CLI) | payer OTHER | LOC: WOUNDCARE 03:10 | DX: E11.621 Type 2 diabetes mellitus with foot ulcer (principal); L97.522 Non-pressure chronic ulcer of other part of left foot with fat layer exposed ==

== ENCOUNTER → 2017-02-09 | Outpatient (CLI) | payer OTHER | LOC: WOUNDCARE 02:15 | DX: E11.621 Type 2 diabetes mellitus with foot ulcer (principal); L97.522 Non-pressure chronic ulcer of other part of left foot with fat layer exposed; S80.821D Blister (nonthermal), right lower leg, subsequent encounter; L02.416 Cutaneous abscess of left lower limb; R60.0 Localized edema; X58.XXXD Exposure to other specified factors, subsequent encounter ==

== ENCOUNTER → 2017-02-13 | Outpatient (CLI) | payer OTHER | LOC: WOUNDCARE 02:49 | DX: E11.621 Type 2 diabetes mellitus with foot ulcer (principal); L97.522 Non-pressure chronic ulcer of other part of left foot with fat layer exposed; L97.821 Non-pressure chronic ulcer of other part of left lower leg limited to breakdown of skin; S80.821D Blister (nonthermal), right lower leg, subsequent encounter; X58.XXXD Exposure to other specified factors, subsequent encounter ==

== ENCOUNTER → 2017-02-20 | Outpatient (CLI) | payer OTHER ==
--- NOTE | ~2017-02-20 | PR ---
[place], [place] PROGRESS NOTE NAME: [facility]ATE [facility] [id number] UNIT #: [id number] ROOM: DOCTOR: CODY LEAHY DPM BIRTHDATE: [birth year] DOS: 02/20/2017 SUBJECTIVE: Patient is here for left lower extremity leg ulcers and plantar foot ulcer. She has no new complaints. She has kept her multilayer compression wrap on, clean, dry and intact. PHYSICAL EXAMINATION: It is noted that the left plantar great toe ulcer is epithelialized and healed. Left medial lower leg ulcer has eschar covered area of 0.1 x 0.1 x 0.1. Left midline lower leg ulcer has an eschar covered area of 0.1 x 0.1 x 0.1. Left leg lateral anterior wound is epithelialized. No debridement was performed today. IMPRESSION: All wounds on the left lower extremity progressing well. They are covered with either epithelialization or callus. PLAN: 1. Evaluate. 2. We will discontinue multilayer compression. We will also discontinue surgical shoe. I have made a cutout in her current diabetic shoes to offload the first metatarsophalangeal joint region to prevent buildup of callus and re-ulceration. The patient will have bordered foam to protect the eschar covered areas of the leg and a double Tubigrip for compression. I would like to see the patient back just for a quick followup to make sure everything has remained healed in 2 weeks and if she has any problems in the meantime, she can call us. CODY LEAHY DPM CM:PNTRANS [id number] CODY LEAHY DPM 02/20/17 2353 interface
== END | disposition home or self-care (01) ==
LOC: WOUNDCARE 02:24
DX: E11.621 Type 2 diabetes mellitus with foot ulcer (principal); E11.622 Type 2 diabetes mellitus with other skin ulcer; L97.821 Non-pressure chronic ulcer of other part of left lower leg limited to breakdown of skin; L97.521 Non-pressure chronic ulcer of other part of left foot limited to breakdown of skin

== ENCOUNTER → 2017-03-06 | Outpatient (CLI) | payer OTHER ==
--- NOTE | ~2017-03-06 | PR ---
[place], [place] PROGRESS NOTE [id number] UNIT #: [id number] ROOM: DOCTOR: CODY LEAHY DPM BIRTHDATE: [birth year] DOS: 03/06/2017 SUBJECTIVE: The patient was seen for followup of left lower leg ulcer and left foot ulcer. The patient has been performing wound care as directed. No new complaints with removal of the bandages. It is noted that the patient is healed. All wounds are epithelialized. No open wounds exist. PLAN: 1. Evaluate. 2. The patient will be discharged for this complaint. She is to keep an eye on the areas. If any problems should arise, she is to call the Wound Care Center immediately, but she will be discharged today as healed. CODY LEAHY DPM CM:RENAY [id number] CODY LEAHY DPM 03/13/17 1052 interface
== END ==
LOC: WOUNDCARE 00:37
DX: L97.522 Non-pressure chronic ulcer of other part of left foot with fat layer exposed (principal)

== ENCOUNTER → 2017-03-18 | Outpatient (CLI) | payer OTHER ==
--- NOTE | ~2017-03-18 | PR ---
[place], [place] PROGRESS NOTE NAME: YOVANI TATE [facility] #: [id number] UNIT #: [id number] ROOM: DOCTOR: ELSA CardozoTIFFANIE BIRTHDATE: [birth year] DOS: 03/18/2017 WOUND CARE PROGRESS NOTE CHIEF COMPLAINT: Ulcer of the left great toe. HISTORY OF PRESENT ILLNESS: This is a 57-year-old female with poorly controlled diabetes and neuropathy, who has had a recurrent ulceration of the left great toe. She was recently discharged from the Wound Clinic approximately last week for a healed diabetic foot ulcer as well as lower extremity ulcers have healed with compression. She has recent new diabetic shoes that were made and also attempted, but has not worn them since last week; and more recently has been wearing her old diabetic shoes, which have a cut out in them to help offload the area. So, she has been wearing those most recently. However, she noticed that she has a new wound that just recently started and initially her boyfriend said she noticed it and it looked just like a thick callus, but there has been some serosanguineous drainage coming from it. The wound has been getting bigger each day, so decided to come back in to have a followup appointment. Sugars have been uncontrolled. She is supposed to have surgery done for a nodule of her lung and has been waiting for surgical clearance. In any case, she reports no fevers or chills and no change in her sugars. No pain with the wound. PHYSICAL EXAMINATION: Shows temperature 97.7, pulse 70, respirations 16, blood pressure is 150/84. There is a very large callus that is noted on the plantar aspect of the left great toe is an open area that is measuring 0.3 x 0.2 x 0.3. There is a large amount of undermining from 2-3 o'clock position with a maximum distance of 1.8. There is some minimal to moderate erythema of the left great toe, but no purulence and no odor is noted. There is a large amount of devitalized tissue present. Also, there is a blistered area on the tip of the left great toe that is measuring 0.2 x 0.1 x 0.1 that is also devitalized and also what looks like a hematoma under the nail present. The nail appears to be intact. A debridement was done of both of these areas. The tissue removed was all devitalized tissue, thick callus, hyperkeratoses, all the undermining was cut away with forceps and scissors. A scalpel was also utilized. There was no bleeding. The patient tolerated the debridement well. Post-debridement measurements of the first wound are 2 x 2 x 0.25; on the second wound it is 0.9 x 0.9 x 0.1. A culture of the deepest part of the left great toe wound was obtained. ASSESSMENT AND PLAN: Recurrent diabetic foot ulcer. I think this is all pressure related. I do not believe there is any deep infection. There may be an early cellulitis noted. A culture was obtained. We will start her on doxycycline, use Maxorb Silver for dressing. She does have some maceration noted, so we will use alginate for now and have her follow up with Dr. Ward this Thursday. We will see if we can get the automobile leasing supervisor to come and see her again. She has her new diabetic shoes. I do not know if those are the shoes that have caused the problem or her other older shoes, which she seems to have been wearing more. Also, she had an offloading device as well to help offload the [place], [place] PROGRESS NOTE [facility]: [id number] UNIT #: [id number] ROOM: DOCTOR: TIFFANIE HUNTER M.D. BIRTHDATE: [birth year] forefoot that not agree with her in the past as far as it did cause issues with rubbing against the anterior tibia. So, we will see if there is any other kind of possibilities for her to help offload the area. She cannot tolerate the contact cast due to balance issues. We will have her follow up with Dr. Ward this Thursday and also an x-ray has been ordered. TIFFANIE HUNTER MD CM:PNTRANS [phone] TIFFANIE HUNTER M.D. 03/18/176 interface
== END | disposition home or self-care (01) ==
LOC: WOUNDCARE 10:07 → LAB 10:07
DX: E11.621 Type 2 diabetes mellitus with foot ulcer (principal); L97.529 Non-pressure chronic ulcer of other part of left foot with unspecified severity; B95.62 Methicillin resistant Staphylococcus aureus infection as the cause of diseases classified elsewhere

== ENCOUNTER → 2017-03-19 | Outpatient (CLI) | payer OTHER | END | disposition home or self-care (01) | LOC: LAB 09:56 | DX: B95.62 Methicillin resistant Staphylococcus aureus infection as the cause of diseases classified elsewhere (principal) ==

== ENCOUNTER → 2017-03-20 | Outpatient (CLI) | payer OTHER ==
--- NOTE | ~2017-03-20 | PR ---
[place], [place] PROGRESS NOTE [id number] UN[facility] #: [id number] ROOM: DOCTOR: CODY LEAHY DPM BIRTHDATE: [birth year] DOS: 03/20/2017 SUBJECTIVE: This is a patient seen for followup of left plantar surface great toe wound. She had been a patient at the wound center and had been discharged as healed. She was seen early in the week by Dr. Villagran with a recurrence of a blood blister underneath the great toe. This area was I and D'd and patient was sent for x-ray which was negative for any osteomyelitis. Cultures were taken. No organisms were seen. The patient is on oral antibiotic at this time. PHYSICAL EXAMINATION: It is noted that left great toe plantar wound is 1.7 cm x 1.5 cm x 0.2 cm. Left metatarsal head first ray 0.1 cm x 0.1 cm x 0.1 cm. All areas were debrided of slough, debris, devitalized tissue through to subQ and some bleeding was noted, which was controlled via pressure. No purulent discharge, odor, deep tracking or cellulitis noted at this time. IMPRESSION: Grade 2 diabetic ulceration, plantar left great toe as described above. PLAN: 1. Evaluate. 2. Debridement was performed. She did get new diabetic shoes and inserts. She did bring them today. I evaluated the inserts. I feel like a first ray cut off with a metatarsal break is needed to elevate the distal great toe in order to prevent friction, rubbing and reinjury. I wrote a script she could take back to the health care administrator to get that modification done. In the meantime, we will use Puracol, a offloading U-shaped felted foam pad and a bulky dressing in a football type preparation. She is to keep this on clean, dry, and intact and see us back at the wound center in 1 week. If the dressing becomes soiled or slip, she can call us or any other problems, she can call in the meantime. CODY LEAHY DPM CM:PNTRANS [id number] CODY LEAHY DPM 03/21/17 0224 interface
== END | disposition home or self-care (01) ==
LOC: WOUNDCARE 02:00
DX: E11.621 Type 2 diabetes mellitus with foot ulcer (principal); L97.522 Non-pressure chronic ulcer of other part of left foot with fat layer exposed

== ENCOUNTER → 2017-03-27 | Outpatient (CLI) | payer OTHER ==
--- NOTE | ~2017-03-27 | PR ---
[place], [place] PROGRESS NOTE NAME: YOVANI TATE UNIT #: [id number] ROOM: DOCTOR: CODY LEAHY DPM BIRTHDATE: [birth year] DOS: 03/27/2017 SUBJECTIVE: The patient is seen for followup of left great toe plantar surface wound. She had a football bandage on, clean, dry and intact. No further issues or complaints. She is finished with her antibiotics. It is noted that her cultures came back with Enterococcus species which would be susceptible orally to PENICILLIN, but patient is allergic or linezolid or vancomycin IV. PHYSICAL EXAMINATION: The patient does not appear to have any gross bacterial infection or acute cellulitis or abscess, so I will refrain from anything or IV as far as any antibiotic. Left great toe plantar wound is measuring 0.5 x 1 x 0.2. This area had callus tissue debris and slough, which was debrided through subcutaneous with a 15 blade. Minimal bleeding controlled via pressure. No signs of infection or complication. The patient tolerated procedure well. IMPRESSION: Left great toe plantar surface ulceration, progressing well with current therapy. PLAN: 1. Evaluate. 2. Debridement was performed as described above. We will continue with Puracol and football type dressing to the area. She is to keep this on clean, dry, and intact. I would like to see the patient back next week for followup of this complaint. I did also put a bit of a build-up in her diabetic shoes in order to offload the great toe. Hopefully, when she is healed, we can transition her into that shoe without any problem. CODY LEAHY DPM CM:PNTRANS [id number] [id number] CODY LEAHY DPM 03/29/17 0652 interface
== END | disposition home or self-care (01) ==
LOC: WOUNDCARE 03:00
DX: E11.621 Type 2 diabetes mellitus with foot ulcer (principal); L97.522 Non-pressure chronic ulcer of other part of left foot with fat layer exposed; L84 Corns and callosities

== ENCOUNTER → 2017-04-03 | Outpatient (CLI) | payer OTHER ==
--- NOTE | ~2017-04-03 | PR ---
[place], [place] PROGRESS NOTE [id number] #: [id number] ROOM: DOCTOR: CODY LEAHY DPM BIRTHDATE: [birth year] DOS: 04/03/2017 SUBJECTIVE: This is an established patient seen for left great toe plantar surface wound. The patient had left knee football-type bandage on until yesterday. She is having extreme neuropathic pain. She removed the bandage, put pain gel on her area. PHYSICAL EXAMINATION: It is noted that the left metatarsal head wound is healed. The left plantar great toe ulcer is measuring 1 x 0.7 x 0.1. Callus tissue debris and subcutaneous was debrided to this area. The patient tolerated procedure well. Minimal bleeding, no purulent discharge or signs of infection noted to the area at this time. IMPRESSION: Grade 2 diabetic ulceration, healing well with current therapy. PLAN: 1. Evaluate. 2. Debridement was performed. We will continue with Puracol and offloading bulky football bandage. The patient is to keep this dry, clean and intact for 1 week and follow up at the wound center at that time. CODY LEAHY DPM CM:RENAY 1144 [id number] CODY LEAHY DPM 04/03/17 1452 interface
== END | disposition home or self-care (01) ==
LOC: WOUNDCARE 00:26
DX: E11.621 Type 2 diabetes mellitus with foot ulcer (principal); L97.522 Non-pressure chronic ulcer of other part of left foot with fat layer exposed

== ENCOUNTER → 2017-04-08 | Outpatient (CLI) | payer OTHER | END | disposition home or self-care (01) | LOC: LAB 13:20 | DX: B95.62 Methicillin resistant Staphylococcus aureus infection as the cause of diseases classified elsewhere (principal) ==

== ENCOUNTER → 2017-04-10 | Outpatient (CLI) | payer OTHER ==
--- NOTE | ~2017-04-10 | PR ---
[place], [place] PROGRESS NOTE [id number] UNIT #: [id number] ROOM: DOCTOR: CODY LEAHY DPM BIRTHDATE: [birth year] DOS: 04/10/2017 SUBJECTIVE: The patient is seen for plantar surface left great toe ulceration. The patient has no new complaints, although she did state that recently a scab fell off of her leg. OBJECTIVE: Upon physical exam today, the area where the scab fell off of her leg is a small ulcerated area that is draining clear fluid and there is some minor nonpitting edema of the leg. This area measures 0.4 x 1.1 x 0.1 cm. No debridement was performed at this area. Left metatarsal head wound is completely resolved. The plantar surface left great toe ulcer is smaller at 0.2 x 0.1 x 0.1. This area was debrided of debris, devitalized tissues through subcutaneous. Minimal bleeding was controlled via pressure. No signs of infection noted in any of these areas at this time. IMPRESSION: Grade 2 diabetic ulceration of the left great toe, progressing well, left metatarsal head ulcer, resolved and new recurrent peripheral vascular ulceration of the left lower leg anterior. PLAN: 1. Evaluate. 2. Debridement of the toe was performed. We will use a metatarsal pad and Puracol to the great toe and Puracol to the left leg and multilayer compression therapy. The patient is to keep this on clean, dry and intact and reappoint in 1 week for followup. CODY LEAHY DPM CM:PNTRANS [id number] CODY LEAHY DPM 04/11/17 0134 interface
== END | disposition home or self-care (01) ==
LOC: WOUNDCARE 02:43
DX: E11.621 Type 2 diabetes mellitus with foot ulcer (principal); L97.522 Non-pressure chronic ulcer of other part of left foot with fat layer exposed

== ENCOUNTER → 2017-04-17 | Outpatient (CLI) | payer OTHER ==
--- NOTE | ~2017-04-17 | PR ---
[place], [place] PROGRESS NOTE NAME: YOVANI TATE UNIT #: [id number] ROOM: DOCTOR: CODY LEAHY DPM BIRTHDATE: [birth year] DOS: 04/17/2017 SUBJECTIVE: The patient is seen for a left great toe wound and a left lower leg wound. The patient has been using the Hydrofera Blue without any complaints. PHYSICAL EXAMINATION: All these areas are noted to be scabbed over and healed. No open wounds are present. The patient will be considered healed and completely epithelialized. Any problems that should arise, she should alert them to us, but otherwise she will be discharged as healed from the wound care center for this complaint. CODY LEAHY DPM CM:PNTRANS 1134 [id number] CODY LEAHY DPM 04/17/17 2342 interface
== END | disposition home or self-care (01) ==
LOC: WOUNDCARE 02:41
DX: E11.621 Type 2 diabetes mellitus with foot ulcer (principal); L97.522 Non-pressure chronic ulcer of other part of left foot with fat layer exposed

== ENCOUNTER → 2017-04-29 | Outpatient (CLI) | payer OTHER | END | disposition home or self-care (01) | LOC: WOUNDCARE 10:21 | DX: E11.621 Type 2 diabetes mellitus with foot ulcer (principal); L97.521 Non-pressure chronic ulcer of other part of left foot limited to breakdown of skin; I10 Essential (primary) hypertension; M19.90 Unspecified osteoarthritis, unspecified site; Z87.891 Personal history of nicotine dependence ==

== ENCOUNTER → 2017-05-06 | Outpatient (CLI) | payer OTHER | END | disposition home or self-care (01) | LOC: WOUNDCARE 01:11 | DX: E11.621 Type 2 diabetes mellitus with foot ulcer (principal); L97.521 Non-pressure chronic ulcer of other part of left foot limited to breakdown of skin; I10 Essential (primary) hypertension; M19.90 Unspecified osteoarthritis, unspecified site; Z87.891 Personal history of nicotine dependence ==

== ENCOUNTER → 2017-05-13 | Outpatient (CLI) | payer OTHER | END | disposition home or self-care (01) | LOC: WOUNDCARE 03:58 | DX: E11.621 Type 2 diabetes mellitus with foot ulcer (principal); L97.521 Non-pressure chronic ulcer of other part of left foot limited to breakdown of skin; I10 Essential (primary) hypertension; M19.90 Unspecified osteoarthritis, unspecified site; Z87.891 Personal history of nicotine dependence ==

== ENCOUNTER 2017-06-19 11:11 | Inpatient (IN) | payer OTHER ==
[~2017-06-19] VITALS: Ht 170 cm; Wt 98.7 kg
--- NOTE | ~2017-06-19 | PR ---
[place], [place] PROGRESS NOTE NAME: YOVANI TATE UNIT #: [id number] ROOM: 402 DOCTOR: ASMITA SANABRIA MD BIRTHDATE: [birth year] DOS: 06/21/2017 SUBJECTIVE: The patient states that she does not have any pain or discomfort in her left foot. It is still pretty red and swollen. There is less drainage from the wound. The wound has been debrided and the granulation tissue was present. OBJECTIVE: VITAL SIGNS: Graphic trend shows a pressure 155/84, pulse of 73, respirations 20, temperature 98.5. LUNGS: Diminished breath sounds, clear. HEART: Regular. ABDOMEN: Obese, soft, nontender. EXTREMITIES: Still swollen with redness, the wound as above. ASSESSMENT AND PLAN: 1. Poorly-healing wound of the left foot plantar area of the left big toe with the possibility of osteomyelitis. Awaiting a triphasic bone scan and an MRI, which will be done tomorrow. Wound culture is growing Klebsiella pneumoniae. Adjustments in antibiotics will be made. 2. Type 2 diabetes mellitus with hypoglycemia and hyperosmolar state. This seems to have resolved. We will change the blood sugars to twice a day. Continue coverage scale. Discontinue metformin because of dropping GFR. 3. Benign hypertension, controlled. Peripheral arterial Doppler will be ordered along with a consult for Podiatry. ASMITA SANABRIA MD CM:PNTRANS [id number] ASMITA SANABRIA MD 06/23/17 0442 interface
--- NOTE | ~2017-06-19 | PR ---
[place], [place] PROGRESS NOTE NAME: YOVANI TATE UNIT #: [id number] ROOM: 402 DOCTOR: ASMITA SANABRIA MD BIRTHDATE: [birth year] DOS: 06/23/2017 SUBJECTIVE: The patient is doing well without any complaints. Appreciate Dr. Abreu's input. OBJECTIVE: VITAL SIGNS: Graphic trend shows a pressure 140/55, pulse of 74, respirations 20, temperature 97.7. LUNGS: Clear. HEART: Regular. ABDOMEN: Obese, soft, nontender. EXTREMITIES: Without any edema. Left foot, still some redness and swelling in the big toe as well as in the foot area. Wound is unchanged. ASSESSMENT AND PLAN: Diabetic wound with cellulitis. Triphasic bone scan showed the possibility of osteomyelitis, but the MRI of the foot showed mostly cellulitis without any evidence of osteo. There is quite a lot of edema also in the surrounding tissue and since she is a poorly controlled diabetic and the ESR elevation noted to be about 75, patient may benefit from continued IV antibiotics at home. ASSESSMENT AND PLAN: 1. Poorly healing wound of the right foot with cellulitis and poorly controlled diabetes mellitus. The patient is advised IV antibiotics. A PICC line will be placed and the patient will be discharged home on IV antibiotics. 2. Type 2 diabetes mellitus. The patient should go back on ____ when she goes home and advised to do a better job, avoiding ____ foods because the patient has poorly controlled diabetes. ASMITA SANABRIA MD CM:PNTRANS [id number] ASMITA SANABRIA MD 06/24/17 0201 interface
--- NOTE | ~2017-06-19 | WRIGHTHP ---
[place], [place] PATIENT HISTORY AND PHYSICAL EXAM NAME: YOVANI TATE [facility] #: [id number] UNIT #: [id number] ROOM: 402 DOCTOR: ASMITA SANABRIA MD BIRTHDATE: [birth year] DOS: 06/19/2017 HISTORY OF PRESENT ILLNESS: The patient is 57 years old. The patient is very well known to us, is following up with wound care for her left foot. The patient says the wound was almost healed and they discharged her from the wound care, but it opened up again. The left foot is pretty swollen and red, so she decided to come into the emergency room. In the emergency room, she was found to be hyperosmolar with blood sugar of 600. She denies having any fever, chills, any chest pains, palpitations. Diet is quite poor resulting in her high blood sugars. PAST MEDICAL HISTORY: Significant for: 1. Last hospitalization in December 2016 with hyperosmolar state. 2. Type 2 diabetes mellitus, uncontrolled. 3. Coronary artery disease with history of stent placement. 4. Benign hypertension. 5. Mixed hyperlipidemia. 6. Diabetic polyneuropathy with chronic pain. MEDICATIONS: She is on are aspirin 81, Incruse Ellipta at bedtime, Plavix 75 daily, Bentyl 10 t.i.d., Lomotil 1 tablet daily p.r.n., vitamin D 50,000 units once a week, gabapentin 300 t.i.d., glimepiride 4 mg b.i.d., [place] 7.5 q. 6 p.r.n., Vistaril 25 daily p.r.n., metformin 500 t.i.d., metoprolol 50 b.i.d., Singulair 10 daily, ranitidine 150 b.i.d., ____ NovoLog 40 units subq t.i.d., Toujeo 80 subq daily. SOCIAL HISTORY: Smoker of about half a pack of cigarettes a day. Denies using any alcohol. PHYSICAL EXAMINATION: VITAL SIGNS: Graphic trend shows a pressure 139/77, pulse of 76, respirations 16, temperature 98.1. LUNGS: Diminished breath sounds, clear. HEART: Regular. ABDOMEN: Obese, soft, nontender. EXTREMITIES: Without any edema. The left foot is quite swollen. Big toe is red and angry looking. Poorly healing wound on the plantar aspect of the left big toe with drainage. LABORATORY DATA: Shows glucose was 618, BUN 9, creatinine 1.41, GFR 38. Sodium 130, potassium 4.1, chloride 95, bicarbonate 27. Ketone is negative. WBC count is normal. ASSESSMENT AND PLAN: 1. Poorly healing wound of the left big toe, most likely with osteomyelitis. ____ bone scan as well as MRI of the left foot is pending. The patient is on IV antibiotics. Cultures are pending. 2. Type 2 diabetes mellitus, poorly controlled because of noncompliance. Restart home medications. Blood sugars are much improved here because of stricter diet. We should possibly go off the metformin because of the dropping [place], [place] PATIENT HISTORY AND PHYSICAL EXAM [id number] UNIT #: [id number] ROOM: [facility] DOCTOR: ASMITA SANABRIA MD BIRTHDATE: [birth year] creatinine and rising GFR. 3. Benign hypertension, controlled. Restart home medications. 4. Chronic back pain. Continue pain meds. ASMITA SANABRIA MD CM:HISPHYS:PATIENT HISTORY AND PHYSICAL EXAMINATION 0908 ASMITA SANABRIA MD 06/20/17 4240 interface
--- NOTE | ~2017-06-19 | PR ---
[place], [place] PROGRESS NOTE [id number] UNIT #: [id number] ROOM: 402 DOCTOR: TAL CUETO DPM BIRTHDATE: [birth year] DOS: 06/23/2017 SUBJECTIVE: The patient seen for followup of ulceration, plantar left hallux. OBJECTIVE: Cap refill time within normal limits, bilateral. Ulceration, plantar aspect of left hallux is full thickness to subcutaneous tissue level. No signs of drainage. Area is granular and clean. No signs of sinus tract or abscess. No signs of localized infection. DIAGNOSTIC STUDIES: The patient's MRI was negative for abscess or osteomyelitis; however, the triphasic bone scan was suspicious for osteomyelitis of the hallux. ASSESSMENT: Diabetic ulceration with cellulitis. PLAN: The patient is being discharged later today. She is going home on IV antibiotics and the patient is to follow at the back at the wound care center where she was previously treated. TAL CUETO DPM CM:RENAY 1143 17 TAL CUETO DPM 06/23/17 1819 interface
--- NOTE | ~2017-06-19 | DS ---
[place], [place] DISCHARGE SUMMARY [id number] UNIT #: [id number] ROOM: 402 DOCTOR: ASMITA SANABRIA MD BIRTHDATE: [birth year] DOS: HOSPITAL COURSE: This patient is 57-year-old, comes in with complaints of redness and swelling of the left big foot as well as extremely high blood sugar of 600. After admission, she was placed on IV fluids, restarted on her insulin and coverage scale. Blood sugars have come down. The fact that she is not very compliant with her diet prevents her blood sugars from being well controlled even on the high dose of medications. She also was found to have some evidence of diabetic nephropathy in the beginning, this seems to have corrected with IV fluids. Triphasic bone scan and MRI of the foot were ordered and consultation with ____ was obtained. ESR and CRP were elevated at 75 and 2.24 respectively. Blood culture shows no bacterial growth. Wound culture shows contaminant. The patient recently had MRSA of the wounds, so I have opted to treat her with Levaquin and vanco. The redness is persistent. Triphasic bone scan shows evidence of cellulitis and possible osteo. MRI of the foot showed no evidence of osteo, but significant cellulitis and surrounding subcutaneous edema was noted, so I have opted to discharge the patient home on IV antibiotics. PICC line will be placed. DISCHARGE MEDICATIONS: The patient will continue to be on home medications. Lovastatin 20, Plavix 75, glimepiride 8 mg, vitamin D 50,000, Incruse Ellipta ____ at bedtime, ranitidine 150 b.i.d., insulin NovoLog 40 units subcutaneous t.i.d., Lomotil p.r.n., Bentyl 10 t.i.d. p.r.n., Singulair 10, aspirin 81, Vistaril 25 t.i.d. p.r.n., losartan 25, Lopressor 50 b.i.d., Neurontin 300 t.i.d., [place] 7.5 q. 6 hours p.r.n. and Toujeo 80 daily. I discontinued the metformin because of rising BUN and creatinine, but we will restart the medication since the kidney functions have improved and that will be maintained at 500 mg 3 times a day. [place], [place] DISCHARGE SUMMARY NAME: YOVANI TATE UNIT #: [id number] ROOM: 402 DOCTOR: ASMITA SANABRIA MD BIRTHDATE: [birth year] ASMITA SANABRIA MD CM:DISCHALEJANDRA 0 ASMITA SANABRIA MD 06/23/17901 interface
--- NOTE | ~2017-06-19 | CON ---
[place], [place] REPORT OF CONSULTATION NAME: [facility]ATE [id number] UNIT #: [id number] ROOM: 402 DOCTOR: JASWANT LEVY DPM BIRTHDATE: [birth year] DOS: 06/22/2017 SUBJECTIVE: This patient is seen as a consult for evaluation of the wound on her left foot. She states, at this time, she is feeling well. Denies fever, chills, nausea, vomiting or night sweats. The patient is diabetic that is uncontrolled. She has a history of a foreign body in the great toe that was removed quite some time ago. She states she had a wound there and it was almost completely healed, but it opened back up recently. She was admitted on Thursday for infection in the left foot. She had an MRI and an ultrasound done just a short time ago. PAST MEDICAL HISTORY: Positive for type 2 diabetes mellitus, uncontrolled; coronary artery disease with history of stent placement; hypertension; hyperlipidemia; diabetic neuropathy; history of foot ulcer; history of osteomyelitis. ALLERGIES: PENICILLIN. CURRENT MEDICATIONS: Include insulin, Levaquin, Cozaar, Levemir, Pepcid, Plavix, Lopressor, Neurontin, and [place]. OBJECTIVE: Upon lower extremity physical examination, pedal pulses are mildly decreased. Skin temperature is warm. CFT is 2 seconds to all digits. Sensation is diminished bilaterally. The plantar left great toe has a large area of ulceration that is full thickness into subcutaneous tissue. Minimal drainage is expressed from the area. There is some mild erythema noted around the wound and dorsum of the great toe, but this does not extend into the forefoot. No fluctuance or signs of abscess. No malodor and the wound is actually fairly clean and granular. She had an arterial ultrasound done. This showed mild bilateral inflow disease with no stenotic lesion or occlusion. Her MRI showed wound at the plantar left great toe with cellulitis. No abscess, no osteomyelitis. I believe, she has a bone scan that is pending. Her sed rate was elevated at 75. ASSESSMENT: Diabetic ulcer, left foot cellulitis. MRI negative for abscess and osteomyelitis. PLAN: Consult is performed. Recommend to continue local wound care to the area. Her MRI was negative. Her ultrasound showed very mild disease. Recommend continue wound care and antibiotics. I do not believe the patient will need any surgery at this time. Her white blood cell count is normal. Sed rate was elevated. Recommend continued care and antibiotics and will follow up the patient tomorrow for reevaluation. [place], [place] REPORT OF CONSULTATION NAME: YOVANI TATE UNIT #: [id number] ROOM: [facility] DOCTOR: JASWANT LEVY DPM BIRTHDATE: [birth year] JASWANT LEVY DPM CM:CONSTR:REPORT OF CONSULTATION 1219 06/22/17 2147 interface
[2017-06-19 11:17] VITALS: BP 135/72
[2017-06-19 11:54] LABS: BASO # 0.1 10*3/uL (0.0-0.1); BASO % 0.6 % (0.0-1.0); EOS # 0.4 10*3/uL (0.0-0.4); EOS % 4.6 % (1.0-4.0); HEMATOCRIT 38.4 % (37.0-47.0); LYMPH # 2.2 10*3/uL (1.3-4.4); LYMPH % 25.2 % (27.0-41.0); MEAN CELL VOLUME 87.5 fl (81.0-99.0); MEAN CORPUSCULAR HGB 29.6 pg (27.0-31.0); MEAN CORPUSCULAR HGB CONC 33.9 g/dl (33.0-37.0); MEAN PLATELET VOLUME 11.9 fl (9.6-12.3); MONO # 0.5 10*3/uL (0.1-1.0); MONO % 6.2 % (3.0-9.0); NEUT # 5.4 10*3/uL (2.3-7.9); NEUT % 63.2 % (47.0-73.0); PLATELET COUNT AUTOMATED 209 10*3/uL (130-400); RED BLOOD COUNT 4.39 10*6/uL (4.10-5.10); RED CELL DISTRI WIDTH 12.3 % (0-14.5); WHITE BLOOD COUNT 8.5 10*3/uL (4.8-10.8)
[2017-06-19 12:05] LABS: ALBUMIN 2.6 gm/dl (3.1-4.5); CREATININE 1.41 mg/dL (0.55-1.02); POTASSIUM 4.1 mmol/L (3.5-5.1); TOTAL PROTEIN 6.9 gm/dL (6.4-8.2)
--- NOTE | 2017-06-19 12:08 | NUR ---
SILVERIO MORSE RN BUDGET MANAGER NOTIFIED @ 1206 PT'S GLUCOSE @ 618,ACKNOWLEGEMENT GIVEN.
--- NOTE | 2017-06-19 12:44 | NUR ---
PT POSITIONED FOR COMFORT FAMILY @ BEDSIDE WITH SAFETY PRECAUTIONS INTACT.
[2017-06-19 13:40] VITALS: BP 143/96
[2017-06-19] MEDS ORDERED: NEURONTIN300 MG PO (14:05)
[2017-06-19] MEDS ORDERED: NORCO 7.5-3251 EACH PO (14:07)
[2017-06-19] MEDS ORDERED: TOUJEO SOL300 UNIT/1 SQ (14:11)
[2017-06-19 16:00] VITALS: BP 154/81
[2017-06-19 20:00] VITALS: BP 127/69
--- NOTE | 2017-06-19 21:00 | NUR ---
PATIENT IS RESTING QUIETLY IN BED, SHE HAS NO VOICED COMPLAINTS AT THIS TIME. SHE HAS AN ULCER TO HER LEFT GREAT TOE WHICH IS NOT CAUSING HER ANY PAIN. RESPIRATIONS EASY/REG, NO SXS OF DISTRESS. SEE ASSESSMENT. CALL LIGHT IS IN REACH. WILL MONITOR.
--- NOTE | 2017-06-19 22:00 | NUR ---
PATIENTS BLOOD SUGAR 148. COVERAGE NOT NEEDED AT THIS TIME.
--- NOTE | 2017-06-19 22:00 | NUR ---
PATIENTS BLOOD SUGAR 148. NO COVERAGE NEEDED.
[2017-06-20] VITALS: BP 119/68
--- NOTE | 2017-06-20 | NUR ---
PATIENTS BLOOD SUGAR 150. NO COVERAGE NEEDED.
--- NOTE | 2017-06-20 02:00 | NUR ---
PATIENTS BLOOD SUGAR 164. 2 UNITS ADMINISTERED. PATIENT IS RESTING QUIETLY IN BED. RESPIRATIONS EASY/REG NO SXS OF DISTRESS. CALL LIGHT IN REACH.
--- NOTE | 2017-06-20 06:41 | NUR ---
PATIENT SLEPT T/O SHIFT WITH NO VOICED COMPLAINTS. SHE WAS PLEASANT/COOPERATIVE T/O THE NIGHT. RESPIRATIONS EASY/REGULAR. NO SXS OF DISTRESS.
[2017-06-20 08:00] VITALS: BP 139/77
[2017-06-20 11:34] VITALS: BP 140/67
[2017-06-20 16:00] VITALS: BP 118/66
[2017-06-20 20:00] VITALS: BP 139/72
[2017-06-21] VITALS: BP 150/85
--- NOTE | 2017-06-21 02:23 | NUR ---
PATIENT HAS BEEN RESTLESS MOST OF THE NIGHT. PATIENT WITH Q2 HOUR BLOOD SUGARS.
--- NOTE | 2017-06-21 04:00 | NUR ---
PATIENT COMPLAINS OF PAIN IN HER LEGS AND FEET, 9/10, STATES UNABLE TO SLEEP. NORCO GIVEN PER PRN ORDER.
--- NOTE | 2017-06-21 04:18 | NUR ---
24 HR chart check completed.
[2017-06-21 08:00] VITALS: BP 155/84
--- NOTE | 2017-06-21 09:00 | NUR ---
DRESSING REMOVED FROM LEFT GREAT TOE FOR DR SANABRIA. WOUND CLEANED AND REDRESSED PER ORDER.
--- NOTE | 2017-06-21 09:11 | NUR ---
DR CUETO'S OFFICE NOTIFIED OF CONSULT FOR DR SANABRIA. PATIENT WITH INFECTED TOE.
--- NOTE | 2017-06-21 11:27 | NUR ---
DR CUETO CALLED AND STATED TO GET 3 VIEWS OF THE LEFT FOOT, WOUND CULTURE, DRESS WOUND WITH BACTROBAN AND DRY DRESSING, CHANGE QDAY AND HE WOULD BE IN TO SEE PATIENT TOMORROW.
[2017-06-21 12:00] VITALS: BP 114/68
[2017-06-21 16:00] VITALS: BP 152/70
[2017-06-21 20:47] VITALS: BP 159/89
[2017-06-22] VITALS: BP 158/88
--- NOTE | 2017-06-22 00:48 | NUR ---
24 HR chart check completed.
--- NOTE | 2017-06-22 05:45 | NUR ---
Medicated with Clarita po prn for chronic leg pain rating 8/10. Will monitor effectiveness. Call light within reach.
[2017-06-22 07:26] LABS: BASO % 0.5 % (0.0-1.0); EOS # 0.5 10*3/uL (0.0-0.4); EOS % 6.4 % (1.0-4.0); HEMATOCRIT 36.5 % (37.0-47.0); HEMOGLOBIN 12.3 g/dl (12.0-16.0); LYMPH # 2.4 10*3/uL (1.3-4.4); LYMPH % 31.8 % (27.0-41.0); MEAN CELL VOLUME 86.9 fl (81.0-99.0); MEAN CORPUSCULAR HGB 29.3 pg (27.0-31.0); MEAN CORPUSCULAR HGB CONC 33.7 g/dl (33.0-37.0); MEAN PLATELET VOLUME 11.2 fl (9.6-12.3); MONO # 0.5 10*3/uL (0.1-1.0); MONO % 6.9 % (3.0-9.0); NEUT # 4.1 10*3/uL (2.3-7.9); PLATELET COUNT AUTOMATED 250 10*3/uL (130-400); RED CELL DISTRI WIDTH 12.3 % (0-14.5); WHITE BLOOD COUNT 7.5 10*3/uL (4.8-10.8)
[2017-06-22 07:42] LABS: BUN 13 mg/dl (7-24); CHLORIDE 105 mmol/L (98-107); CREATININE 0.72 mg/dL (0.55-1.02); POTASSIUM 4.1 mmol/L (3.5-5.1); SODIUM 142 mmol/L (136-145)
--- NOTE | 2017-06-22 07:59 | NUR ---
PT DOWN FOR MRI AT THIS TIME.
[2017-06-22 08:00] VITALS: BP 141/80
--- NOTE | 2017-06-22 08:30 | NUR ---
ADMINISTRATIVE ASSISTANT VS. PT OFF FLOOR FOR TESTING.
--- NOTE | 2017-06-22 10:00 | NUR ---
PT RETURNED FROM MRI AT THIS TIME.
--- NOTE | 2017-06-22 10:52 | NUR ---
Director [facility] in to talk to patient. Patient states lives at HOME with HER BOYFRIEND. There are 3 steps in the home. Physician: DR SANABRIA Pharmacy: [facility] [place] Home health services: NONE Patient's level of ADLs: INDEPENDENT Patient has working utilities: YES DME: [facility] Follow-up physician's appointment after d/c: PREFERS TO MAKE HER OWN APPT Does patient want to access PORTAL?: Discharge plan . LINDA DAVILA DR FEELS PT NEEDS SNF STAY FOR IV ATB IF MRI +. PT ADAMANTLY REFUSES. STATES SHE HAS DONE IV ATB AT HOME BEFORE. I TOLD PT TO SPEAK WITH DR SANABRIA. DR SANABRIA AWARE.
[2017-06-22 11:54] VITALS: BP 135/71
--- NOTE | 2017-06-22 12:10 | NUR ---
DR LEVY IN TO SEE PT AT THIS TIME TO DISCUSS TEST RESULTS.
--- NOTE | 2017-06-22 13:33 | NUR ---
DR LEVY NOTIFIED OF BONE SCAN RESULTS. HE STATES THE MRI IS MORE SPECIFIC AND THE MRI WAS NEGATIVE. NO NEW ORDERS AT THIS TIME.
[2017-06-22 16:00] VITALS: BP 136/70
[2017-06-22 20:00] VITALS: BP 172/86
[2017-06-23] VITALS: BP 138/76
--- NOTE | 2017-06-23 07:43 | NUR ---
PT MEDICATED WITH NORCO FOR C/O HEADACHE PAIN.
[2017-06-23 08:00] VITALS: BP 140/55
[2017-06-23] MEDS ORDERED: METFORMIN500 MG PO (08:42)
--- NOTE | 2017-06-23 09:41 | NUR ---
PT TAKEN TO SURGERY DEPT FOR PICC LINE PLACEMENT.
--- NOTE | 2017-06-23 11:15 | NUR ---
SCRIPT AND INFO FAXED TO I FOR IV ATB. SPOKE WITH VANE. SHE WILL RUN BENEFITS AND CALL ME BACK. [facility] SET UP. WILL GO HOME TODAY AND ATB WILL START TOMORROW AM. NURSE AWARE.
[2017-06-23 12:00] VITALS: BP 132/66
--- NOTE | 2017-06-23 12:32 | NUR ---
Received order for home health IV ATB for ov[facility]. Faxed to [facility] for referral.
--- NOTE | 2017-06-23 13:42 | NUR ---
PER [place] AT [facility], [facility] HAS CONTACTED THEM AND MEDS ARE ALL SET UP. NURSE NOTIFIED OK TO DC.
--- NOTE | 2017-06-23 14:00 | NUR ---
Discharge instructions reviewed with patient/family. Patient receptive and verbalizes understanding. Follow-up care arranged. Written instructions given to patient/family. ANALIA BLANC
--- NOTE | 2017-06-23 14:01 | NUR ---
pt discharged at this time via wheelchair to home with spouse.
== END 2017-06-23 14:02 | disposition home health service (06) | DRG 638 ==
LOC: ED 11:11 → EDHOLD 12:57 → 4E 12:57
PROVIDERS: Nurse Practitioner Family; ADMIT Internal Medicine
PROC: 02HV33Z Insertion of Infusion Device into Superior Vena Cava, Percutaneous Approach (ICD-10-PCS; principal; 2017-06-23)
DX: E11.621 Type 2 diabetes mellitus with foot ulcer (principal); E46 Unspecified protein-calorie malnutrition; L97.529 Non-pressure chronic ulcer of other part of left foot with unspecified severity; N17.0 Acute kidney failure with tubular necrosis; E11.00 Type 2 diabetes mellitus with hyperosmolarity without nonketotic hyperglycemic-hyperosmolar coma (NKHHC); L03.115 Cellulitis of right lower limb; L03.116 Cellulitis of left lower limb; E11.21 Type 2 diabetes mellitus with diabetic nephropathy; E11.40 Type 2 diabetes mellitus with diabetic neuropathy, unspecified; E11.65 Type 2 diabetes mellitus with hyperglycemia; I10 Essential (primary) hypertension; I25.10 Atherosclerotic heart disease of native coronary artery without angina pectoris; E78.2 Mixed hyperlipidemia; G89.29 Other chronic pain; F17.210 Nicotine dependence, cigarettes, uncomplicated; B96.1 Klebsiella pneumoniae [K. pneumoniae] as the cause of diseases classified elsewhere; E66.9 Obesity, unspecified; E11.628 Type 2 diabetes mellitus with other skin complications; Z79.84 Long term (current) use of oral hypoglycemic drugs; Z88.0 Allergy status to penicillin; Z79.899 Other long term (current) drug therapy; Z79.4 Long term (current) use of insulin; Z79.82 Long term (current) use of aspirin; Z98.61 Coronary angioplasty status; Z98.891 History of uterine scar from previous surgery; Z83.3 Family history of diabetes mellitus; Z82.49 Family history of ischemic heart disease and other diseases of the circulatory system; Z91.19 Patient's noncompliance with other medical treatment and regimen; Z80.8 Family history of malignant neoplasm of other organs or systems; Z68.34 Body mass index [BMI] 34.0-34.9, adult

== ENCOUNTER → 2017-07-08 | Outpatient (CLI) | payer OTHER ==
[~2017-07-08] MED LIST changes: +NORCO 7.5-3251 EACH PO; +TOUJEO SOL300 UNIT/1 SQ
== END ==
LOC: WOUNDCARE 02:24
DX: E11.621 Type 2 diabetes mellitus with foot ulcer (principal); L97.522 Non-pressure chronic ulcer of other part of left foot with fat layer exposed; Z87.891 Personal history of nicotine dependence

== ENCOUNTER → 2017-07-15 | Outpatient (CLI) | payer OTHER | END | disposition home or self-care (01) | LOC: WOUNDCARE 01:52 | DX: E11.621 Type 2 diabetes mellitus with foot ulcer (principal); L97.522 Non-pressure chronic ulcer of other part of left foot with fat layer exposed; Z87.891 Personal history of nicotine dependence ==

== ENCOUNTER → 2017-07-29 | Outpatient (CLI) | payer OTHER | END | disposition home or self-care (01) | LOC: WOUNDCARE 03:07 | DX: E11.621 Type 2 diabetes mellitus with foot ulcer (principal); L97.522 Non-pressure chronic ulcer of other part of left foot with fat layer exposed; Z87.891 Personal history of nicotine dependence ==

== ENCOUNTER → 2017-08-05 | Outpatient (CLI) | payer OTHER | LOC: WOUNDCARE 01:04 | DX: E11.621 Type 2 diabetes mellitus with foot ulcer (principal); L97.522 Non-pressure chronic ulcer of other part of left foot with fat layer exposed; Z87.891 Personal history of nicotine dependence ==

== ENCOUNTER → 2017-08-12 | Outpatient (CLI) | payer OTHER | LOC: WOUNDCARE 02:16 | DX: E11.621 Type 2 diabetes mellitus with foot ulcer (principal); L97.522 Non-pressure chronic ulcer of other part of left foot with fat layer exposed; L97.421 Non-pressure chronic ulcer of left heel and midfoot limited to breakdown of skin; Z87.891 Personal history of nicotine dependence ==

== ENCOUNTER → 2017-08-26 | Outpatient (CLI) | payer OTHER | END | disposition home or self-care (01) | LOC: WOUNDCARE 03:06 | DX: E11.621 Type 2 diabetes mellitus with foot ulcer (principal); L97.522 Non-pressure chronic ulcer of other part of left foot with fat layer exposed; L97.421 Non-pressure chronic ulcer of left heel and midfoot limited to breakdown of skin; Z87.891 Personal history of nicotine dependence ==

== ENCOUNTER → 2017-09-02 | Outpatient (CLI) | payer OTHER | END | disposition home or self-care (01) | LOC: WOUNDCARE 00:46 | DX: E11.621 Type 2 diabetes mellitus with foot ulcer (principal); L97.421 Non-pressure chronic ulcer of left heel and midfoot limited to breakdown of skin; L97.522 Non-pressure chronic ulcer of other part of left foot with fat layer exposed; Z87.891 Personal history of nicotine dependence ==

== ENCOUNTER → 2017-09-09 | Outpatient (CLI) | payer OTHER | END | disposition home or self-care (01) | LOC: WOUNDCARE 03:18 | DX: E11.621 Type 2 diabetes mellitus with foot ulcer (principal); L97.421 Non-pressure chronic ulcer of left heel and midfoot limited to breakdown of skin; L97.522 Non-pressure chronic ulcer of other part of left foot with fat layer exposed; Z87.891 Personal history of nicotine dependence ==

== ENCOUNTER → 2017-09-15 | Outpatient (CLI) | payer OTHER ==
[2017-09-15 12:32] LABS: BILIRUBIN NEGATIVE (NEGATIVE); BLOOD 2+ (NEGATIVE); CLARITY CLEAR (CLEAR); COLOR YELLOW (YELLOW); GLUCOSE NEGATIVE (NEGATIVE); KETONE NEGATIVE (NEGATIVE); LEUKO ESTERASE NEGATIVE (NEGATIVE); NITRITE NEGATIVE (NEGATIVE); PH 6.5 (5.0-9.0); UROBILINOGEN 0.2 E.U./dl (0.2-1.0)
[2017-09-15 12:42] LABS: BACTERIA TRACE; RBC 31-40 rbc/hpf (0-2)
[2017-09-15 13:03] LABS: ALBUMIN 2.7 gm/dl (3.1-4.5); ALKALINE PHOSPHATASE 101 U/L (45-117); BILIRUBIN, DIRECT < 0.1 mg/dL (0.0-0.2); BUN 13 mg/dl (7-24); CHLORIDE 103 mmol/L (98-107); CHOLESTEROL 142 mg/dL (<200); CREATININE 0.97 mg/dL (0.55-1.02); HDL CHOLESTEROL 65 mg/dl (40-60); LDL CHOLESTEROL 54 mg/dL (9-159); POTASSIUM 4.3 mmol/L (3.5-5.1); SGOT/AST 18 IU/L (3-35); SGPT/ALT 18 U/L (12-78); SODIUM 138 mmol/L (136-145); TRIGLYCERIDES 116 mg/dl (<150); VLDL CHOLESTEROL 23 mg/dL (6-40)
== END | disposition home or self-care (01) ==
LOC: LAB 12:05
PROVIDERS: Internal Medicine
DX: E11.65 Type 2 diabetes mellitus with hyperglycemia (principal); E78.5 Hyperlipidemia, unspecified; E55.9 Vitamin D deficiency, unspecified; E04.9 Nontoxic goiter, unspecified

== ENCOUNTER → 2017-09-16 | Outpatient (CLI) | payer OTHER | END | disposition home or self-care (01) | LOC: WOUNDCARE 01:02 | DX: E11.621 Type 2 diabetes mellitus with foot ulcer (principal); L97.421 Non-pressure chronic ulcer of left heel and midfoot limited to breakdown of skin; L97.522 Non-pressure chronic ulcer of other part of left foot with fat layer exposed; Z87.891 Personal history of nicotine dependence ==

== ENCOUNTER → 2017-09-24 | Outpatient (CLI) | payer OTHER | END | disposition home or self-care (01) | LOC: WOUNDCARE 00:42 | DX: E11.621 Type 2 diabetes mellitus with foot ulcer (principal); L97.521 Non-pressure chronic ulcer of other part of left foot limited to breakdown of skin; L97.421 Non-pressure chronic ulcer of left heel and midfoot limited to breakdown of skin; Z87.891 Personal history of nicotine dependence ==

== ENCOUNTER → 2017-09-30 | Outpatient (CLI) | payer OTHER | END | disposition home or self-care (01) | LOC: WOUNDCARE 02:10 | DX: E11.621 Type 2 diabetes mellitus with foot ulcer (principal); L97.421 Non-pressure chronic ulcer of left heel and midfoot limited to breakdown of skin; L97.522 Non-pressure chronic ulcer of other part of left foot with fat layer exposed; Z87.891 Personal history of nicotine dependence ==

== ENCOUNTER → 2017-10-07 | Outpatient (CLI) | payer OTHER | END | disposition home or self-care (01) | LOC: WOUNDCARE 01:35 | DX: E11.621 Type 2 diabetes mellitus with foot ulcer (principal); L97.421 Non-pressure chronic ulcer of left heel and midfoot limited to breakdown of skin; L97.522 Non-pressure chronic ulcer of other part of left foot with fat layer exposed; E11.622 Type 2 diabetes mellitus with other skin ulcer; L97.821 Non-pressure chronic ulcer of other part of left lower leg limited to breakdown of skin; Z87.891 Personal history of nicotine dependence ==

== ENCOUNTER → 2017-10-13 | Outpatient (CLI) | payer OTHER | END | disposition home or self-care (01) | LOC: WOUNDCARE 04:17 | DX: E11.621 Type 2 diabetes mellitus with foot ulcer (principal); L97.522 Non-pressure chronic ulcer of other part of left foot with fat layer exposed; L97.421 Non-pressure chronic ulcer of left heel and midfoot limited to breakdown of skin; E11.622 Type 2 diabetes mellitus with other skin ulcer; L97.821 Non-pressure chronic ulcer of other part of left lower leg limited to breakdown of skin; Z87.891 Personal history of nicotine dependence ==

== ENCOUNTER → 2017-10-23 | Outpatient (CLI) | payer OTHER | END | disposition home or self-care (01) | LOC: WOUNDCARE 03:36 | DX: E11.621 Type 2 diabetes mellitus with foot ulcer (principal); L97.421 Non-pressure chronic ulcer of left heel and midfoot limited to breakdown of skin; L97.522 Non-pressure chronic ulcer of other part of left foot with fat layer exposed; Z87.891 Personal history of nicotine dependence ==

== ENCOUNTER → 2017-10-28 | Outpatient (CLI) | payer OTHER | END | disposition home or self-care (01) | LOC: WOUNDCARE 01:31 | DX: E11.621 Type 2 diabetes mellitus with foot ulcer (principal); L97.421 Non-pressure chronic ulcer of left heel and midfoot limited to breakdown of skin; L97.522 Non-pressure chronic ulcer of other part of left foot with fat layer exposed; Z87.891 Personal history of nicotine dependence ==

== ENCOUNTER → 2017-11-04 | Outpatient (CLI) | payer OTHER | END | disposition home or self-care (01) | LOC: WOUNDCARE 03:58 | DX: E11.621 Type 2 diabetes mellitus with foot ulcer (principal); L97.522 Non-pressure chronic ulcer of other part of left foot with fat layer exposed; L97.421 Non-pressure chronic ulcer of left heel and midfoot limited to breakdown of skin; Z87.891 Personal history of nicotine dependence ==

== ENCOUNTER → 2017-11-11 | Outpatient (CLI) | payer OTHER | END | disposition home or self-care (01) | LOC: WOUNDCARE 00:33 | DX: E11.621 Type 2 diabetes mellitus with foot ulcer (principal); L97.522 Non-pressure chronic ulcer of other part of left foot with fat layer exposed; Z87.891 Personal history of nicotine dependence ==

== ENCOUNTER → 2017-12-02 | Outpatient (CLI) | payer OTHER | END | disposition home or self-care (01) | LOC: WOUNDCARE 02:11 | DX: E11.621 Type 2 diabetes mellitus with foot ulcer (principal); L97.522 Non-pressure chronic ulcer of other part of left foot with fat layer exposed; Z87.891 Personal history of nicotine dependence ==

== ENCOUNTER → 2017-12-10 | Outpatient (CLI) | payer OTHER | END | disposition home or self-care (01) | LOC: WOUNDCARE 02:31 | DX: E11.621 Type 2 diabetes mellitus with foot ulcer (principal); L97.522 Non-pressure chronic ulcer of other part of left foot with fat layer exposed; Z87.891 Personal history of nicotine dependence ==

== ENCOUNTER → 2017-12-16 | Outpatient (CLI) | payer OTHER | END | disposition home or self-care (01) | LOC: WOUNDCARE 01:28 | DX: E11.621 Type 2 diabetes mellitus with foot ulcer (principal); L97.522 Non-pressure chronic ulcer of other part of left foot with fat layer exposed; L84 Corns and callosities; Z87.891 Personal history of nicotine dependence ==

== ENCOUNTER → 2017-12-30 | Outpatient (CLI) | payer OTHER ==
[2017-12-30 10:29] LABS: BILIRUBIN NEGATIVE (NEGATIVE); BLOOD 3+ (NEGATIVE); CLARITY CLOUDY (CLEAR); COLOR YELLOW (YELLOW); GLUCOSE 3+ (NEGATIVE); KETONE TRACE (NEGATIVE); LEUKO ESTERASE 1+ (NEGATIVE); NITRITE NEGATIVE (NEGATIVE); UROBILINOGEN 0.2 E.U./dl (0.2-1.0)
[2017-12-30 10:57] LABS: ALBUMIN 3.1 gm/dl (3.1-4.5); ALKALINE PHOSPHATASE 100 U/L (45-117); BILIRUBIN, DIRECT < 0.1 mg/dL (0.0-0.2); BUN 34 mg/dl (7-24); CHLORIDE 103 mmol/L (98-107); CHOLESTEROL 155 mg/dL (<200); CREATININE 1.35 mg/dL (0.55-1.02); FREE T4 1.25 ng/dl (0.76-1.46); HDL CHOLESTEROL 49 mg/dl (40-60); LDL CHOLESTEROL 74 mg/dL (9-159); POTASSIUM 4.6 mmol/L (3.5-5.1); SGOT/AST 15 IU/L (3-35); SGPT/ALT 19 U/L (12-78); SODIUM 138 mmol/L (136-145); TOTAL PROTEIN 7.5 gm/dL (6.4-8.2); TRIGLYCERIDES 158 mg/dl (<150); VLDL CHOLESTEROL 32 mg/dL (6-40)
[2017-12-30 11:23] LABS: BACTERIA 4+; EPITHELIAL CELLS 20-25; RBC TNTC rbc/hpf (0-2); WBC TNTC wbc/hpf (0-5)
== END | disposition home or self-care (01) ==
LOC: LAB 03:02 → WOUNDCARE 03:02
PROVIDERS: Internal Medicine
DX: E11.621 Type 2 diabetes mellitus with foot ulcer (principal); L97.522 Non-pressure chronic ulcer of other part of left foot with fat layer exposed; L84 Corns and callosities; E78.1 Pure hyperglyceridemia; Z87.891 Personal history of nicotine dependence

== ENCOUNTER → 2018-02-10 | Outpatient (CLI) | payer OTHER | END | disposition home or self-care (01) | LOC: WOUNDCARE 08:29 | DX: E11.621 Type 2 diabetes mellitus with foot ulcer (principal); L97.521 Non-pressure chronic ulcer of other part of left foot limited to breakdown of skin; L84 Corns and callosities; I10 Essential (primary) hypertension; J45.909 Unspecified asthma, uncomplicated; Z87.891 Personal history of nicotine dependence ==

== ENCOUNTER → 2018-02-17 | Outpatient (CLI) | payer OTHER | END | disposition home or self-care (01) | LOC: WOUNDCARE 02:05 | DX: E11.621 Type 2 diabetes mellitus with foot ulcer (principal); L97.521 Non-pressure chronic ulcer of other part of left foot limited to breakdown of skin; L84 Corns and callosities; E11.40 Type 2 diabetes mellitus with diabetic neuropathy, unspecified; I10 Essential (primary) hypertension; J45.909 Unspecified asthma, uncomplicated; Z87.891 Personal history of nicotine dependence ==

== ENCOUNTER → 2018-02-24 | Outpatient (CLI) | payer OTHER | END | disposition home or self-care (01) | LOC: WOUNDCARE 03:37 | DX: E11.621 Type 2 diabetes mellitus with foot ulcer (principal); L97.521 Non-pressure chronic ulcer of other part of left foot limited to breakdown of skin; L84 Corns and callosities; E11.40 Type 2 diabetes mellitus with diabetic neuropathy, unspecified; I10 Essential (primary) hypertension; J45.909 Unspecified asthma, uncomplicated; Z87.891 Personal history of nicotine dependence ==

== ENCOUNTER → 2018-03-03 | Outpatient (CLI) | payer OTHER | END | disposition home or self-care (01) | LOC: WOUNDCARE 02:06 | DX: E11.621 Type 2 diabetes mellitus with foot ulcer (principal); L97.521 Non-pressure chronic ulcer of other part of left foot limited to breakdown of skin; L84 Corns and callosities; E11.40 Type 2 diabetes mellitus with diabetic neuropathy, unspecified; I10 Essential (primary) hypertension; J45.909 Unspecified asthma, uncomplicated; Z87.891 Personal history of nicotine dependence ==

== ENCOUNTER → 2018-04-28 | Outpatient (CLI) | payer OTHER | END | disposition home or self-care (01) | LOC: WOUNDCARE 04:57 | DX: E11.621 Type 2 diabetes mellitus with foot ulcer (principal); L97.521 Non-pressure chronic ulcer of other part of left foot limited to breakdown of skin; E11.40 Type 2 diabetes mellitus with diabetic neuropathy, unspecified; I10 Essential (primary) hypertension; J45.909 Unspecified asthma, uncomplicated; Z87.891 Personal history of nicotine dependence ==

== ENCOUNTER → 2018-05-05 | Outpatient (CLI) | payer OTHER | END | disposition home or self-care (01) | LOC: WOUNDCARE 01:21 | DX: E11.621 Type 2 diabetes mellitus with foot ulcer (principal); L97.521 Non-pressure chronic ulcer of other part of left foot limited to breakdown of skin; E11.40 Type 2 diabetes mellitus with diabetic neuropathy, unspecified; I10 Essential (primary) hypertension; J45.909 Unspecified asthma, uncomplicated; Z87.891 Personal history of nicotine dependence ==

== ENCOUNTER → 2018-05-10 | Outpatient (CLI) | payer OTHER ==
[2018-05-10 09:21] LABS: BILIRUBIN NEGATIVE (NEGATIVE); BLOOD 2+ (NEGATIVE); CLARITY CLOUDY (CLEAR); COLOR YELLOW (YELLOW); GLUCOSE 3+ (NEGATIVE); KETONE NEGATIVE (NEGATIVE); LEUKO ESTERASE NEGATIVE (NEGATIVE); NITRITE NEGATIVE (NEGATIVE); SPECIFIC GRAVITY 1.025 (1.005-1.030); UROBILINOGEN 0.2 E.U./dl (0.2-1.0)
[2018-05-10 09:26] LABS: ALBUMIN 2.9 gm/dl (3.1-4.5); ALKALINE PHOSPHATASE 108 U/L (45-117); BILIRUBIN, DIRECT < 0.1 mg/dL (0.0-0.2); BUN 15 mg/dl (7-24); CHLORIDE 101 mmol/L (98-107); CHOLESTEROL 177 mg/dL (<200); CREATININE 0.93 mg/dL (0.55-1.02); FREE T4 1.28 ng/dl (0.76-1.46); HDL CHOLESTEROL 58 mg/dl (40-60); LDL CHOLESTEROL 89 mg/dL (9-159); POTASSIUM 4.2 mmol/L (3.5-5.1); SGOT/AST 13 IU/L (3-35); SGPT/ALT 17 U/L (12-78); SODIUM 138 mmol/L (136-145); TOTAL PROTEIN 7.7 gm/dL (6.4-8.2); TRIGLYCERIDES 149 mg/dl (<150); VLDL CHOLESTEROL 30 mg/dL (6-40)
[2018-05-10 09:57] LABS: BACTERIA 4+
[2018-05-10 09:58] LABS: EPITHELIAL CELLS 30-40; RBC 41-50 rbc/hpf (0-2); WBC 51-100 wbc/hpf (0-5)
== END | disposition home or self-care (01) ==
LOC: LAB 08:27
PROVIDERS: Internal Medicine
DX: E11.65 Type 2 diabetes mellitus with hyperglycemia (principal); E04.9 Nontoxic goiter, unspecified; E55.9 Vitamin D deficiency, unspecified; E78.5 Hyperlipidemia, unspecified

== ENCOUNTER → 2018-05-12 | Outpatient (CLI) | payer OTHER | END | disposition home or self-care (01) | LOC: WOUNDCARE 01:29 | DX: E11.621 Type 2 diabetes mellitus with foot ulcer (principal); L97.521 Non-pressure chronic ulcer of other part of left foot limited to breakdown of skin; I10 Essential (primary) hypertension; J45.909 Unspecified asthma, uncomplicated; Z87.891 Personal history of nicotine dependence ==

== ENCOUNTER → 2018-05-19 | Outpatient (CLI) | payer OTHER | END | disposition home or self-care (01) | LOC: WOUNDCARE 04:26 | DX: E11.621 Type 2 diabetes mellitus with foot ulcer (principal); L97.521 Non-pressure chronic ulcer of other part of left foot limited to breakdown of skin; E11.40 Type 2 diabetes mellitus with diabetic neuropathy, unspecified; I10 Essential (primary) hypertension; J45.909 Unspecified asthma, uncomplicated; Z87.891 Personal history of nicotine dependence ==

== ENCOUNTER → 2018-06-02 | Outpatient (CLI) | payer OTHER | END | disposition home or self-care (01) | LOC: WOUNDCARE 04:33 | DX: E11.621 Type 2 diabetes mellitus with foot ulcer (principal); L97.521 Non-pressure chronic ulcer of other part of left foot limited to breakdown of skin; E11.40 Type 2 diabetes mellitus with diabetic neuropathy, unspecified; I10 Essential (primary) hypertension; I25.2 Old myocardial infarction; J45.909 Unspecified asthma, uncomplicated; Z87.891 Personal history of nicotine dependence ==

== ENCOUNTER → 2018-07-15 | Outpatient (CLI) | payer OTHER | END | disposition home or self-care (01) | LOC: WOUNDCARE 08:42 | DX: E11.621 Type 2 diabetes mellitus with foot ulcer (principal); L97.522 Non-pressure chronic ulcer of other part of left foot with fat layer exposed; L84 Corns and callosities; E11.42 Type 2 diabetes mellitus with diabetic polyneuropathy; I10 Essential (primary) hypertension; J45.909 Unspecified asthma, uncomplicated; I25.2 Old myocardial infarction; Z87.891 Personal history of nicotine dependence ==

== ENCOUNTER → 2018-07-22 | Outpatient (CLI) | payer OTHER | END | disposition home or self-care (01) | LOC: WOUNDCARE 04:13 | DX: E11.621 Type 2 diabetes mellitus with foot ulcer (principal); L97.522 Non-pressure chronic ulcer of other part of left foot with fat layer exposed; L84 Corns and callosities; I10 Essential (primary) hypertension; J45.909 Unspecified asthma, uncomplicated; I25.2 Old myocardial infarction; Z87.891 Personal history of nicotine dependence ==

== ENCOUNTER → 2018-08-04 | Outpatient (CLI) | payer OTHER ==
[~2018-08-04] MED LIST changes: +AMLODIPINE BESYL5 MG PO; +HYDROCHLOROTHIA50 M1 PO; +LASIX20 MG PO; +TOPROL XL50 M1 PO; +TRULICITY1.5 MG/0.5 SC
== END | disposition home or self-care (01) ==
DX: K76.0 Fatty (change of) liver, not elsewhere classified (principal); I10 Essential (primary) hypertension; E11.9 Type 2 diabetes mellitus without complications; G24.9 Dystonia, unspecified

== ENCOUNTER 2018-08-05 15:21 | Inpatient (IN) | payer OTHER ==
[~2018-08-05] VITALS: Ht 165.1 cm; Wt 109.8 kg
--- NOTE | ~2018-08-05 | PR ---
[place], [place] PROGRESS NOTE NAME: YOVANI TATE UNIT #: [id number] ROOM: 518 DOCTOR: ASMITA SANABRIA MD BIRTHDATE: [birth year] DOS: SUBJECTIVE: The patient is doing much better, does not have any new complaints. Appreciate wound clinic input. The patient had a debridement yesterday. OBJECTIVE: VITAL SIGNS: Graphic trend shows pressure 150/80, pulse of 73, respirations 18 and temperature 97.9. LUNGS: Diminished breath sounds, clear. HEART: Regular. ABDOMEN: Obese, soft, nontender. EXTREMITIES: Without any edema. Distal pulsations adequately felt. Left foot big toe plantar aspect has a small wound. The tissues have been debrided. ASSESSMENT AND PLAN: 1. Type 2 diabetes mellitus with hyperglycemia and hyperosmolar state, which is corrected. Blood sugars have come down into the low 200 and 229 this morning. The patient is encouraged to take her medications properly. 2. Acute kidney injury, which has resolved with intravenous fluids. Plan of most likely from acute tubular necrosis. 3. Possibility of urinary tract infection. Urine culture was reflexed and is still pending. We will start her on antibiotics and the patient has been on antibiotics. The patient is stable and can be discharged today. ASMITA SANABRIA MD CM:PNTRANS [id number] ASMITA SANABRIA MD 08/08/18 0156 interface
--- NOTE | ~2018-08-05 | EKG ---
[place], [place] ELECTROCARDIOGRAM REPORT NAME: YOVANI TATE UNIT #: [id number] ROOM: 518 DOCTOR: MEGHANA DRAFT REPORT BIRTHDATE: [birth year] [facility] Test Date: 2018-08-05 Test Time: 15:41:04 Pat Name: YOVANI TATE Department: Room: 518 Gender: F Primary Operator: : 1960 Requested By: MARIKA NOLAN Order Number: [id number] Reading MD: London Rodriguez MD Measurements Intervals [place] Rate: 78 P: 32 NV: 160 QRS: -25 QRSD: 83 T: 36 QT: 421 QTc: 480 Interpretive Statements Sinus rhythm Poor precordial R-wave progression Baseline wander in lead(s) I,III,aVL,aVF No previous ECG available for comparison Electronically Signed On 08-05-2018 18:33:22 PST by London Rodriguez MD CM:EKGRPT:ELECTROCARDIOGRAM REPORT [id number] MARIKA KOWALSKI DRAFT REPORT MARIKA NOLAN M.D.
--- NOTE | ~2018-08-05 | DS ---
[place], [place] DISCHARGE SUMMARY NAME: YOVANI TATE [facility] #: [id number] UNIT #: [id number] ROOM: 518 DOCTOR: ASMITA SANABRIA MD BIRTHDATE: [birth year] DOS: 08/06/2018 DIAGNOSES: 1. Type 2 diabetes mellitus with hyperglycemia. 2. Acute kidney injury. 3. Possible urinary tract infection. Urine culture is still not available. 4. Noncompliance with poor insight to medical problems. 5. Chronic poorly healing wound of the left foot, left big toe, which was debrided in hospital. 6. Benign hypertension. 7. Mixed hyperlipidemia. 8. Coronary artery disease, with history of stent placement. 9. Diabetic polyneuropathy. DISCHARGE MEDICATIONS: Cipro 500 mg twice daily for 5 days, lovastatin 20 daily, Plavix 75 daily, aspirin 81 daily, glimepiride 8 mg daily, vitamin D 50,000 once a week, Incruse Ellipta 1 inhalation at night, Zantac 150 daily, insulin NovoLog 40 units subcutaneous 3 times a day with meals, Bentyl 10 t.i.d. p.r.n. for abdominal pain, Singulair 10 daily, hydroxyzine 25 t.i.d. p.r.n. for anxiety, losartan 100 mg daily, metoprolol 50 b.i.d., gabapentin 300 t.i.d., [place] 7.5 q 6 hours p.r.n. for pain, Toujeo 80 mg at bedtime, metformin 500 t.i.d., amlodipine 5 daily, Lasix 20 daily, Trulicity 1.5 subcutaneous weekly, Methocarbamol 750 q. 4 hours. HOSPITAL COURSE: This patient is 58 years old, was at the wound clinic on the day of admission, was found to be having dizziness with elevated blood pressure, elevated blood sugar. She was sent out to the Emergency Room where her sugar was 687. She stated that she did not take her meds that morning. After being evaluated, she did not have any evidence of diabetic ketoacidosis, but was admitted with diagnosis of hyperosmolar state. After admission, the patient was placed on IV fluids, insulin subcutaneous and coverage scale. Blood sugars have come down and in the low 200s now. The wound was debrided by Jimena Cevallos, the nurse practitioner from wound clinic. The patient is stable and is not having any new problems. Urine analysis was done and reflux urine culture. The culture results are not available yet, but the patient was on antibiotics, which will be continued upon discharge. The patient is stable, will be discharged to home today. The kidney injury has corrected and the kidney functions are now back to normal. The patient should avoid taking too many diuretics, hydrochlorothiazide will be discontinued. DISCHARGE MEDICATIONS: As above. FOLLOWUP: As an outpatient. [place], [place] DISCHARGE SUMMARY NAME: YOVANI TATE UNIT #: [id number] ROOM: 8 DOCTOR: ASMITA SANABRIA MD BIRTHDATE: [birth year] ASMITA SANABRIA MD CM:FLY [id number] ASMITA SANABRIA MD 08/07/18 1323 interface
--- NOTE | ~2018-08-05 | WRIGHTHP ---
[place], [place] PATIENT HISTORY AND PHYSICAL EXAM NAME: YOVANI TATE [facility] #: [id number] UNIT #: [id number] ROOM: 518 DOCTOR: ASMITA SANABRIA MD BIRTHDATE: [birth year] DOS: HISTORY OF PRESENT ILLNESS: This patient is very well known to us. She was at the Wound Clinic yesterday and was noticed to have an extremely low blood pressure and very high blood sugars and she was dizzy and lightheaded. Her blood sugar was checked in the Wound Clinic and was critically high, so then sent the patient to the Emergency Room. She denies having any fever or chills. She does not have any chest pains or palpitations, does not have any urinary symptoms. States that she did not take her medications because she was in a patel. PAST MEDICAL HISTORY: Significant for: 1. Type 2 diabetes mellitus, insulin-dependent, poorly controlled. Last hospitalization in 06/2017. 2. Chronic poorly healing wound of the left foot. 3. Coronary artery disease with history of stent placement. 4. Benign hypertension. 5. Mixed hyperlipidemia. 6. Diabetic polyneuropathy with chronic pain. MEDICATIONS: Medications that she is currently on are amlodipine 5 daily, aspirin 81 b.i.d., Plavix 75 daily, Bentyl 10 t.i.d., Lomotil one tablet daily p.r.n., vitamin D 50,000 units a week, Lasix 20 daily, gabapentin 300 t.i.d., Amaryl 8 mg daily, hydrochlorothiazide 12.5 mg daily, [place] 7.5 q. 6 hours p.r.n., hydroxyzine 25 t.i.d., losartan 100 daily, lovastatin 20 daily, metformin 500 t.i.d., Robaxin 750 q. 4 hours, metoprolol 50 b.i.d., Singulair 10 daily, ranitidine 150 daily, Trulicity once a week, NovoLog sliding scale and glargine 80 units daily. SOCIAL HISTORY: Smoker of half pack of cigarettes a day. Denies using any alcohol. PHYSICAL EXAMINATION: GENERAL: She is awake and alert and oriented. VITAL SIGNS: Graphic trend shows a pressure of 132/70, pulse of 76, respirations 14, afebrile. NECK: Supple. LUNGS: Diminished breath sounds, clear. HEART: Regular. ABDOMEN: Obese, soft, nontender. EXTREMITIES: Without any edema. SKIN: Dry gangrenous spot noticed on the plantar aspect of the left foot big toe. Feet are warm to touch. No evidence of any acute arterial occlusion noted. IMAGING: Gallbladder screening done so far which is done as an outpatient shows diffuse hepatic steatosis. HIDA scan is pending, which again was ordered as an outpatient. LABORATORY DATA: White cell count normal. Glucose 639, BUN 21, creatinine [place], [place] PATIENT HISTORY AND PHYSICAL EXAM NAME: YOVANI TATE UNIT #: [id number] ROOM: 518 DOCTOR: ASIMTA SANABRIA MD BIRTHDATE: [birth year] 1.68. Electrolytes; sodium 130, potassium 4.7, chloride 96, bicarbonate 22, lipase is 48. Troponin is normal. Liver enzymes normal. Hemoglobin A1c was 13.2. Chest x-ray, no acute process. ASSESSMENT AND PLAN: 1. The patient who is type 2 diabetes mellitus with hyperglycemia with hyperosmolar state. The patient is placed on IV fluids and the blood sugars are slowly coming down. We will restart some of her home antidiabetic meds. 2. Benign hypertension, controlled. The patient seems to be taking quite a lot of diuretics and so some adjustments will be made today. 3. Chronic pain, controlled. 4. Chronic poorly healing wound of the left big toe. Wound Clinic will be consulted. 5. Acute kidney injury, possibly from hypotension and acute tubular necrosis. We will continue fluids and readjust meds. ASMITA SANABRIA MD CM:HISPHYS:PATIENT HISTORY AND PHYSICAL EXAMINATION [id number] ASMITA SANABRIA MD 08/17/18 7785 interface
[~2018-08-05 15:21] MED LIST changes: -AMLODIPINE BESYL5 MG PO; -HYDROCHLOROTHIA50 M1 PO; -LASIX20 MG PO; -TOPROL XL50 M1 PO; -TRULICITY1.5 MG/0.5 SC
[2018-08-05 15:23] VITALS: BP 142/80
--- NOTE | 2018-08-05 16:15 | NUR ---
NOTIFIED MIDLEVELS OF PATIENT IN ROOM AND OF CRITICAL BLOOD SUGAR. NOTIFIED RESIDENT WITH DOCTOR TODAY OF PATIENT IN ROOM AND CRITICAL BLOOD SUGAR. PATIENT HAS ALREADY IV ACCESS ESTABLISHED AND IS ON BINDERY MANAGER.
[2018-08-05 16:59] LABS: BASO % 0.3 % (0.0-1.0); EOS # 0.1 10*3/uL (0.0-0.4); HEMATOCRIT 36.1 % (37.0-47.0); HEMOGLOBIN 12.1 g/dl (12.0-16.0); LYMPH # 1.5 10*3/uL (1.3-4.4); LYMPH % 16.7 % (27.0-41.0); MEAN CELL VOLUME 87.8 fl (81.0-99.0); MEAN CORPUSCULAR HGB 29.4 pg (27.0-31.0); MEAN CORPUSCULAR HGB CONC 33.5 g/dl (33.0-37.0); MEAN PLATELET VOLUME 11.8 fl (9.6-12.3); MONO # 0.3 10*3/uL (0.1-1.0); MONO % 3.6 % (3.0-9.0); NEUT # 7.2 10*3/uL (2.3-7.9); NEUT % 78.1 % (47.0-73.0); PLATELET COUNT AUTOMATED 237 10*3/uL (130-400); RED BLOOD COUNT 4.11 10*6/uL (4.10-5.10); RED CELL DISTRI WIDTH 12.5 % (0-14.5); WHITE BLOOD COUNT 9.2 10*3/uL (4.8-10.8)
[2018-08-05 17:07] LABS: ACT PARTIAL THROMBO TIME 21.3 SECONDS (20.8-31.5); INTERNATIONAL NORM RATIO 0.9 (2.0-3.5)
[2018-08-05 17:15] LABS: ALBUMIN 2.8 gm/dl (3.1-4.5); ALKALINE PHOSPHATASE 119 U/L (45-117); BUN 21 mg/dl (7-24); CHLORIDE 96 mmol/L (98-107); CREATININE 1.68 mg/dL (0.55-1.02); LIPASE 48 U/L (73-393); POTASSIUM 4.7 mmol/L (3.5-5.1); SGOT/AST 17 IU/L (3-35); SGPT/ALT 19 U/L (12-78); SODIUM 130 mmol/L (136-145); TOTAL PROTEIN 7.1 gm/dL (6.4-8.2)
[2018-08-05 17:19] LABS: TROPONIN I < 0.015 ng/ml (<0.045)
--- NOTE | 2018-08-05 18:46 | NUR ---
PATIENT REFUSING WOUND PHOTOS AT THIS TIME, STATES SHE SEE'S THE WOUND CLINIC. PATIENT STATES IT IS ON HER LEFT GREAT TOE.
[2018-08-05 18:47] VITALS: BP 138/76
[2018-08-05 18:55] LABS: BILIRUBIN NEGATIVE (NEGATIVE); BLOOD 2+ (NEGATIVE); CLARITY SL CLOUDY (CLEAR); COLOR YELLOW (YELLOW); GLUCOSE 3+ (NEGATIVE); KETONE NEGATIVE (NEGATIVE); LEUKO ESTERASE 1+ (NEGATIVE); NITRITE NEGATIVE (NEGATIVE); PH 5.5 (5.0-9.0); UROBILINOGEN 0.2 E.U./dl (0.2-1.0)
[2018-08-05 19:12] LABS: BACTERIA 4+; WBC 16-20 wbc/hpf (0-5)
[2018-08-05 19:51] VITALS: BP 134/76
[2018-08-05 20:55] VITALS: BP 133/63
--- NOTE | 2018-08-05 20:55 | NUR ---
A 58, admitted to , under the services of ASMITA Calderon MD with a diagnosis of EHSAN, HYPERGLYCEMIA. Chief complaint is HYPERGLYCEMIA. Patient arrived via bed from ER. Monitor applied. Initial assessment completed. Vital signs taken and recorded. ASMITA CALDERON MD notified of admission to the unit. Orders received. See assessment for past medical history, medications and allergies. Patient and/or family oriented to unit. [facility] visitation policy reviewed. Clothing/patient valuable form completed. LINSEY GOFF
--- NOTE | 2018-08-05 21:38 | NUR ---
NOTIFIED DR SANABRIA OF PATIENTS ADMISSION TO FLOOR AND PATIENT REFUSING WOUND CARE AND PICTURES AT THIS TIME. ORDERS RECEIVED.
--- NOTE | 2018-08-05 21:45 | NUR ---
ORDERS FROM DR SANABRIA TO HOLD PO MEDICATIONS AT THIS TIME.
[2018-08-05] MEDS ORDERED: AMLODIPINE BESYL5 MG PO (23:28)
[2018-08-05] MEDS ORDERED: LASIX20 MG PO (23:30)
[2018-08-05] MEDS ORDERED: HYDROCHLOROTHIA50 M1 PO (23:31)
[2018-08-05] MEDS ORDERED: TRULICITY1.5 MG/0.5 SC (23:47)
[2018-08-05] MEDS ORDERED: TOPROL XL50 M1 PO (23:49)
[2018-08-05] MEDS ORDERED: ROBAXIN-750750 MG PO (23:51)
[2018-08-06] VITALS: BP 108/50
[2018-08-06 06:42] LABS: BUN 14 mg/dl (7-24); CHLORIDE 109 mmol/L (98-107); CREATININE 0.91 mg/dL (0.55-1.02); SODIUM 141 mmol/L (136-145)
[2018-08-06 06:47] LABS: POTASSIUM 3.7 mmol/L (3.5-5.1)
--- NOTE | 2018-08-06 07:58 | NUR ---
PT RESTING IN BED. NO DISTRESS NOTED. NO VOICED C/O. WILL MONITOR
[2018-08-06 08:00] VITALS: BP 142/70
--- NOTE | 2018-08-06 09:00 | NUR ---
Fifth Grade Teacher in to talk to patient. Patient states lives at home with her boyfriend and his sister. There are 3 steps in the home. Physician: Dr. Lynda Garcia Pharmacy: [facility] Home health services: she would like an [facility] RN to check on her after discharge. She has had [facility] in the past. Patient's level of ADLs: MINIMAL ASSIST Patient has working utilities: yes DME: walker, [facility] Follow-up physician's appointment after d/c: she prefers to make her own follow up appt after discharge Does patient want to access PORTAL?: no Discharge plan discussed with patient and family member who is at the bedside. She lives at home with her boyfriend and his sister. She is independent in her ADLs and uses a walker for ambulation. Discussed home health care services and she would like a nurse to stop in and check on her. She has had [facility] in the past and would like to have them again. When medically stable she will be discharged to home with [facility] services. LYNETTE SCHROEDER
--- NOTE | 2018-08-06 09:54 | NUR ---
YOVANI TATE [id number] Please refer to the physician's history and physical for past medical history, comorbid conditions, and allergies. Diagnosis: ACUTE KIDNEY INJURY HYPERGLYCEMIA Liam Score: 21,LOW OR NO RISK WOUND DESCRIPTIONS: Location of the wound: left great toe Thickness: Full Size: 2.4cm x 1.5cm x <0.1cm Tunneling: none Undermining: none Sinus Tract: none Presence of Exudate: Serosanguineous Amount: Light Color: Red, brown Odor: None Periwound Skin Appearance: Normal Wound edges: approximated Pain (associated with wound): none at time of assessment How does patient state this happened? pt stated she has had this on and off for 2 years Surface the patient is resting on: Isoflex SKIN PREVENTION RECOMMENDATION: 1. Pressure redistribution support surface as appropriate 2. Elevate heels 3. Remove boots/TEDS every shift and reapply 4. Head of bed 30 degrees as tolerated 5. Assess nutrition and hydration 6. Manage moisture 7. Avoid the use of containment devices while in bed 8. Use absorptive products on surfaces limit layers of linens on bed 9. Turn and reposition every 1-2 hours in bed and every 1 hour in chair as tolerated 10. Weight shifts every 15 minutes while up in chair 11. Offloading with pillows or device to keep heels elevated off bed 12. Monitor skin at least every shift 13. Inspect under medical devices twice a day WOUND TREATMENT RECOMMENDATIONS: Consult Allison Reno WIND TURBINE ELECTRICAL ENGINEER-BC for possible debridment patient follows in the wound care center with Allison Reno. Full thickness guidelines: Cleanse left great toe with nss and apply sureprep around the wound therahoney to wound bed and cover with dsd. Heel raiser pro boots while in bed.
[2018-08-06 12:00] VITALS: BP 125/64
--- NOTE | 2018-08-06 13:37 | NUR ---
Spoke with Dr. Garcia regarding wound care recommendations she stated to go ahead and put Allison Reno [facility].
[2018-08-06 16:00] VITALS: BP 125/60
--- NOTE | 2018-08-06 18:24 | NUR ---
PT RESTING IN BED. NO DISTRESS NOTED. NO VOICED C/O. WILL MONITOR
[2018-08-06 20:58] VITALS: BP 120/60
--- NOTE | 2018-08-06 22:22 | NUR ---
PT RESTING IN BED. NO DISTRESS NOTED. WILL MONITOR
--- NOTE | 2018-08-06 23:30 | NUR ---
ASSUMED CARE FOR THIS PT AT THIS TIME. ASSISTED TO BSC. NO C/O VOICED. ASSISTED BACK TO BED. CALL LIGHT IN REACH.
[2018-08-07] VITALS: BP 137/66
--- NOTE | 2018-08-07 03:58 | NUR ---
Patient sleeping. Respirations relaxed and easy. Siderails up . Wheelfredos on. NAHUN ALONZO
--- NOTE | 2018-08-07 05:27 | NUR ---
24 HR chart check completed.
[2018-08-07 07:21] LABS: BASO % 0.6 % (0.0-1.0); EOS # 0.3 10*3/uL (0.0-0.4); EOS % 3.5 % (1.0-4.0); HEMATOCRIT 35.1 % (37.0-47.0); HEMOGLOBIN 11.3 g/dl (12.0-16.0); LYMPH # 2.5 10*3/uL (1.3-4.4); LYMPH % 34.3 % (27.0-41.0); MEAN CELL VOLUME 88.9 fl (81.0-99.0); MEAN CORPUSCULAR HGB 28.6 pg (27.0-31.0); MEAN CORPUSCULAR HGB CONC 32.2 g/dl (33.0-37.0); MEAN PLATELET VOLUME 11.6 fl (9.6-12.3); MONO # 0.4 10*3/uL (0.1-1.0); NEUT % 55.5 % (47.0-73.0); PLATELET COUNT AUTOMATED 195 10*3/uL (130-400); RED BLOOD COUNT 3.95 10*6/uL (4.10-5.10); RED CELL DISTRI WIDTH 12.6 % (0-14.5); WHITE BLOOD COUNT 7.2 10*3/uL (4.8-10.8)
[2018-08-07 07:34] LABS: BUN 9 mg/dl (7-24); CHLORIDE 106 mmol/L (98-107); CREATININE 0.79 mg/dL (0.55-1.02); POTASSIUM 3.9 mmol/L (3.5-5.1); SODIUM 138 mmol/L (136-145)
[2018-08-07 08:00] VITALS: BP 150/80
[2018-08-07] MEDS ORDERED: CIPRO500 MG PO (08:32)
--- NOTE | 2018-08-07 10:45 | NUR ---
D/C PHOTOS TAKEN PER PROTOCOL. DRESSING CHANGE COMPLETED PER PHYSICIAN ORDER. PT TOLERATED WELL.
--- NOTE | 2018-08-07 11:15 | NUR ---
Discharge instructions reviewed with patient/family. Patient receptive and verbalizes understanding. Follow-up care arranged. Written instructions given to patient/family. DEYSI DAVID
--- NOTE | 2018-08-09 09:55 | NUR ---
Faxed home health order to [facility].
== END 2018-08-07 11:16 | disposition home health service (06) | DRG 637 ==
LOC: ED 15:21 → EDHOLD 18:29 → 5E 18:29
PROVIDERS: Physician Assistant; ADMIT Internal Medicine
PROC: 0HBMXZZ Excision of Right Foot Skin, External Approach (ICD-10-PCS; principal; 2018-08-06)
DX: E11.00 Type 2 diabetes mellitus with hyperosmolarity without nonketotic hyperglycemic-hyperosmolar coma (NKHHC) (principal); N17.0 Acute kidney failure with tubular necrosis; N39.0 Urinary tract infection, site not specified; I10 Essential (primary) hypertension; E11.621 Type 2 diabetes mellitus with foot ulcer; L97.529 Non-pressure chronic ulcer of other part of left foot with unspecified severity; I25.10 Atherosclerotic heart disease of native coronary artery without angina pectoris; I95.9 Hypotension, unspecified; E78.2 Mixed hyperlipidemia; G89.29 Other chronic pain; E11.42 Type 2 diabetes mellitus with diabetic polyneuropathy; F17.210 Nicotine dependence, cigarettes, uncomplicated; Z79.84 Long term (current) use of oral hypoglycemic drugs; Z88.0 Allergy status to penicillin; Z95.5 Presence of coronary angioplasty implant and graft; Z98.891 History of uterine scar from previous surgery; Z83.3 Family history of diabetes mellitus; Z82.3 Family history of stroke; Z80.8 Family history of malignant neoplasm of other organs or systems; Z82.49 Family history of ischemic heart disease and other diseases of the circulatory system; Z79.4 Long term (current) use of insulin; Z91.14 Patient's other noncompliance with medication regimen

== ENCOUNTER → 2018-08-05 | Outpatient (CLI) | payer OTHER | END | disposition home or self-care (01) | DX: E11.621 Type 2 diabetes mellitus with foot ulcer (principal); L97.521 Non-pressure chronic ulcer of other part of left foot limited to breakdown of skin; L84 Corns and callosities; E11.42 Type 2 diabetes mellitus with diabetic polyneuropathy; I10 Essential (primary) hypertension; I25.2 Old myocardial infarction; J45.909 Unspecified asthma, uncomplicated; Z87.891 Personal history of nicotine dependence ==

== ENCOUNTER → 2018-08-12 | Outpatient (CLI) | payer OTHER ==
[~2018-08-12] MED LIST changes: +AMLODIPINE BESYL5 MG PO; +HYDROCHLOROTHIA50 M1 PO; +LASIX20 MG PO; +TOPROL XL50 M1 PO; +TRULICITY1.5 MG/0.5 SC
== END | disposition home or self-care (01) ==
LOC: WOUNDCARE 02:59
DX: E11.621 Type 2 diabetes mellitus with foot ulcer (principal); L97.522 Non-pressure chronic ulcer of other part of left foot with fat layer exposed; L84 Corns and callosities; E11.42 Type 2 diabetes mellitus with diabetic polyneuropathy; I10 Essential (primary) hypertension; I25.2 Old myocardial infarction; J45.909 Unspecified asthma, uncomplicated; Z87.891 Personal history of nicotine dependence

== ENCOUNTER → 2018-08-25 | Outpatient (CLI) | payer OTHER | END | disposition home or self-care (01) | LOC: WOUNDCARE 02:59 | DX: E11.621 Type 2 diabetes mellitus with foot ulcer (principal); L97.522 Non-pressure chronic ulcer of other part of left foot with fat layer exposed; L84 Corns and callosities; E11.42 Type 2 diabetes mellitus with diabetic polyneuropathy; I10 Essential (primary) hypertension; J45.909 Unspecified asthma, uncomplicated; I25.2 Old myocardial infarction; Z87.891 Personal history of nicotine dependence ==

== ENCOUNTER → 2018-09-01 | Outpatient (CLI) | payer OTHER | END | disposition home or self-care (01) | LOC: MAMMO 07:51 | DX: Z12.31 Encounter for screening mammogram for malignant neoplasm of breast (principal) ==

== ENCOUNTER → 2018-09-03 | Outpatient (CLI) | payer OTHER | END | disposition home or self-care (01) | LOC: WOUNDCARE 00:32 | DX: E11.621 Type 2 diabetes mellitus with foot ulcer (principal); L97.522 Non-pressure chronic ulcer of other part of left foot with fat layer exposed; L84 Corns and callosities; E11.42 Type 2 diabetes mellitus with diabetic polyneuropathy; I10 Essential (primary) hypertension; I25.2 Old myocardial infarction; J45.909 Unspecified asthma, uncomplicated; Z87.891 Personal history of nicotine dependence ==

== ENCOUNTER → 2018-09-10 | Outpatient (CLI) | payer OTHER | END | disposition home or self-care (01) | LOC: WOUNDCARE 01:08 | DX: E11.621 Type 2 diabetes mellitus with foot ulcer (principal); L97.522 Non-pressure chronic ulcer of other part of left foot with fat layer exposed; E11.42 Type 2 diabetes mellitus with diabetic polyneuropathy; I10 Essential (primary) hypertension; J45.909 Unspecified asthma, uncomplicated; Z87.891 Personal history of nicotine dependence ==

== ENCOUNTER → 2018-09-17 | Outpatient (CLI) | payer OTHER | END | disposition home or self-care (01) | LOC: WOUNDCARE 02:36 | DX: E11.621 Type 2 diabetes mellitus with foot ulcer (principal); L97.522 Non-pressure chronic ulcer of other part of left foot with fat layer exposed; L97.512 Non-pressure chronic ulcer of other part of right foot with fat layer exposed; E11.42 Type 2 diabetes mellitus with diabetic polyneuropathy; I10 Essential (primary) hypertension; J45.909 Unspecified asthma, uncomplicated; Z87.891 Personal history of nicotine dependence ==

== ENCOUNTER → 2018-10-08 | Outpatient (CLI) | payer OTHER | END | disposition home or self-care (01) | LOC: WOUNDCARE 02:21 | DX: E11.621 Type 2 diabetes mellitus with foot ulcer (principal); L97.521 Non-pressure chronic ulcer of other part of left foot limited to breakdown of skin; L97.511 Non-pressure chronic ulcer of other part of right foot limited to breakdown of skin; E11.42 Type 2 diabetes mellitus with diabetic polyneuropathy; I10 Essential (primary) hypertension; J45.909 Unspecified asthma, uncomplicated; Z87.891 Personal history of nicotine dependence ==

== ENCOUNTER → 2018-10-15 | Outpatient (CLI) | payer OTHER | END | disposition home or self-care (01) | LOC: WOUNDCARE 08:13 | DX: E11.621 Type 2 diabetes mellitus with foot ulcer (principal); L97.512 Non-pressure chronic ulcer of other part of right foot with fat layer exposed; L97.521 Non-pressure chronic ulcer of other part of left foot limited to breakdown of skin; L84 Corns and callosities; I10 Essential (primary) hypertension; J45.909 Unspecified asthma, uncomplicated; I25.2 Old myocardial infarction; Z87.891 Personal history of nicotine dependence ==

== ENCOUNTER → 2018-11-05 | Outpatient (CLI) | payer OTHER | END | disposition home or self-care (01) | LOC: WOUNDCARE 01:44 | DX: E11.621 Type 2 diabetes mellitus with foot ulcer (principal); L97.512 Non-pressure chronic ulcer of other part of right foot with fat layer exposed; L97.522 Non-pressure chronic ulcer of other part of left foot with fat layer exposed; I10 Essential (primary) hypertension; J45.909 Unspecified asthma, uncomplicated; Z87.891 Personal history of nicotine dependence ==

== ENCOUNTER → 2018-12-02 | Outpatient (CLI) | payer OTHER | END | disposition home or self-care (01) | LOC: WOUNDCARE 01:21 → EDSTATUS 15:56 → WOUNDCARE 16:06 | DX: E11.621 Type 2 diabetes mellitus with foot ulcer (principal); L97.522 Non-pressure chronic ulcer of other part of left foot with fat layer exposed; L97.512 Non-pressure chronic ulcer of other part of right foot with fat layer exposed; L84 Corns and callosities; E11.42 Type 2 diabetes mellitus with diabetic polyneuropathy; Z87.891 Personal history of nicotine dependence ==

== ENCOUNTER → 2018-12-08 | Outpatient (CLI) | payer OTHER | END | disposition home or self-care (01) | LOC: WOUNDCARE 01:20 | DX: E11.621 Type 2 diabetes mellitus with foot ulcer (principal); L97.522 Non-pressure chronic ulcer of other part of left foot with fat layer exposed; L97.512 Non-pressure chronic ulcer of other part of right foot with fat layer exposed; E11.42 Type 2 diabetes mellitus with diabetic polyneuropathy; I10 Essential (primary) hypertension; J45.909 Unspecified asthma, uncomplicated; Z87.891 Personal history of nicotine dependence ==

== ENCOUNTER → 2018-12-20 | Outpatient (CLI) | payer OTHER | END | disposition home or self-care (01) | LOC: WOUNDCARE 00:40 | DX: E11.621 Type 2 diabetes mellitus with foot ulcer (principal); L97.522 Non-pressure chronic ulcer of other part of left foot with fat layer exposed; L97.512 Non-pressure chronic ulcer of other part of right foot with fat layer exposed; E11.42 Type 2 diabetes mellitus with diabetic polyneuropathy; L84 Corns and callosities; I10 Essential (primary) hypertension; I25.2 Old myocardial infarction; J45.909 Unspecified asthma, uncomplicated; Z87.891 Personal history of nicotine dependence ==

== ENCOUNTER → 2019-01-04 | Outpatient (CLI) | payer OTHER | END | disposition home or self-care (01) | LOC: WOUNDCARE 14:25 | DX: E11.621 Type 2 diabetes mellitus with foot ulcer (principal); L97.522 Non-pressure chronic ulcer of other part of left foot with fat layer exposed; L97.512 Non-pressure chronic ulcer of other part of right foot with fat layer exposed; E11.42 Type 2 diabetes mellitus with diabetic polyneuropathy; I10 Essential (primary) hypertension; J45.909 Unspecified asthma, uncomplicated; Z87.891 Personal history of nicotine dependence ==

== ENCOUNTER → 2019-01-21 | Outpatient (CLI) | payer OTHER | END | disposition home or self-care (01) | LOC: WOUNDCARE 01:30 | DX: E11.621 Type 2 diabetes mellitus with foot ulcer (principal); L97.522 Non-pressure chronic ulcer of other part of left foot with fat layer exposed; L97.512 Non-pressure chronic ulcer of other part of right foot with fat layer exposed; L84 Corns and callosities; E11.42 Type 2 diabetes mellitus with diabetic polyneuropathy; I10 Essential (primary) hypertension; I25.2 Old myocardial infarction; J45.909 Unspecified asthma, uncomplicated; Z87.891 Personal history of nicotine dependence ==

== ENCOUNTER → 2019-01-28 | Outpatient (CLI) | payer OTHER | END | disposition home or self-care (01) | LOC: WOUNDCARE 01:25 | DX: E11.621 Type 2 diabetes mellitus with foot ulcer (principal); L97.512 Non-pressure chronic ulcer of other part of right foot with fat layer exposed; L97.522 Non-pressure chronic ulcer of other part of left foot with fat layer exposed; E11.42 Type 2 diabetes mellitus with diabetic polyneuropathy; I10 Essential (primary) hypertension; J45.909 Unspecified asthma, uncomplicated; Z87.891 Personal history of nicotine dependence ==

== ENCOUNTER → 2019-04-08 | Outpatient (CLI) | payer OTHER | END | disposition home or self-care (01) | LOC: RAD 13:59 | DX: M54.2 Cervicalgia (principal); R20.0 Anesthesia of skin; I10 Essential (primary) hypertension; M54.6 Pain in thoracic spine ==

== ENCOUNTER → 2019-06-13 | Outpatient (CLI) | payer OTHER | END | disposition home or self-care (01) | LOC: MRI 09:50 | DX: M51.34 Other intervertebral disc degeneration, thoracic region (principal); E11.9 Type 2 diabetes mellitus without complications ==

== ENCOUNTER 2019-07-18 14:01 | Inpatient (IN) | payer OTHER ==
[~2019-07-18] VITALS: Ht 162.6 cm; Wt 100.3 kg
[2019-07-18 14:03] VITALS: BP 135/64
[2019-07-18 16:22] LABS: BASO % 0.3 % (0.0-1.0); EOS # 0.1 10*3/uL (0.0-0.4); EOS % 1.4 % (1.0-4.0); HEMATOCRIT 40.6 % (37.0-47.0); HEMOGLOBIN 13.2 g/dl (12.0-16.0); LYMPH # 1.1 10*3/uL (1.3-4.4); MEAN CORPUSCULAR HGB 29.3 pg (27.0-31.0); MEAN CORPUSCULAR HGB CONC 32.5 g/dl (33.0-37.0); MEAN PLATELET VOLUME 11.9 fl (9.6-12.3); MONO # 0.5 10*3/uL (0.1-1.0); MONO % 6.6 % (3.0-9.0); NEUT # 5.4 10*3/uL (2.3-7.9); NEUT % 76.3 % (47.0-73.0); PLATELET COUNT AUTOMATED 202 10*3/uL (130-400); RED BLOOD COUNT 4.51 10*6/uL (4.10-5.10); RED CELL DISTRI WIDTH 13.1 % (0-14.5); WHITE BLOOD COUNT 7.1 10*3/uL (4.8-10.8)
[2019-07-18 16:40] LABS: ALBUMIN 2.7 gm/dl (3.1-4.5); ALKALINE PHOSPHATASE 110 U/L (45-117); BUN 12 mg/dl (7-24); CHLORIDE 99 mmol/L (98-107); LIPASE 23 U/L (73-393); POTASSIUM 3.5 mmol/L (3.5-5.1); SGOT/AST 31 IU/L (3-35); SGPT/ALT 24 U/L (12-78); SODIUM 135 mmol/L (136-145); TOTAL PROTEIN 7.2 gm/dL (6.4-8.2)
[2019-07-18 16:45] LABS: BILIRUBIN NEGATIVE (NEGATIVE); BLOOD 1+ (NEGATIVE); CLARITY SL CLOUDY (CLEAR); COLOR YELLOW (YELLOW); GLUCOSE 3+ (NEGATIVE); KETONE 1+ (NEGATIVE); LEUKO ESTERASE NEGATIVE (NEGATIVE); NITRITE POSITIVE (NEGATIVE); UROBILINOGEN 0.2 E.U./dl (0.2-1.0)
[2019-07-18 17:05] LABS: BACTERIA 4+; MUCOUS TRACE; WBC 0-2 wbc/hpf (0-5)
--- NOTE | 2019-07-18 17:20 | NUR ---
MORPHINE AND ZOFRAN EFFECTIVE PER PT.
[2019-07-18 19:02] VITALS: BP 128/80
--- NOTE | 2019-07-18 20:23 | NUR ---
PATIENT REFUSING MIR
[2019-07-18 21:30] VITALS: BP 143/78
--- NOTE | 2019-07-18 21:30 | NUR ---
Time: 2129 A 59 year old FEMALE admitted to 5E under services of ASMITA CALDERON MD. Pt. arrived via stretcher from ER. Chief complaint: NAUSEA & VOMITING. DAMIÁN CHAWLA
--- NOTE | 2019-07-18 21:40 | NUR ---
PATIENT REFUSED WOUND PHOTOS.
[2019-07-18] MEDS ORDERED: COLACE100 MG PO (22:33)
[2019-07-18] MEDS ORDERED: BUSPAR5 MG PO (22:34)
[2019-07-18] MEDS ORDERED: SYMB80 INH (22:38)
[2019-07-18] MEDS ORDERED: LIPITOR40 MG PO (22:40)
[2019-07-18] MEDS ORDERED: ISORDIL40 MG PO (22:41)
[2019-07-18] MEDS ORDERED: OMEPRAZOLE MAGN20 M1 PO (22:44)
--- NOTE | 2019-07-18 22:46 | NUR ---
DR TURNER CALLED FOR ADMISSION ORDERS- NO ANSWER.
--- NOTE | 2019-07-18 23:20 | NUR ---
SPOKE WITH DR TURNER FOR ADMISSION ORDERS. DR AWARE THAT PATIENT HAS BILATERAL FOOT WOUNDS AND REFUSES MEASUREMENTS AND PICTURES. ALSO PATIENT ORDERED MIR IN ER AND PATIENT REFUSES. SEE NEW ORDERS.
[2019-07-19] VITALS: BP 162/87
--- NOTE | 2019-07-19 | NUR ---
PATIENT RESTING IN BED, WATCHING TV. PATIENT C/O SOME DIARRHEA AT THIS TIME. CALL LIGHT IN REACH. WILL MONITOR.
--- NOTE | 2019-07-19 02:45 | NUR ---
IMODIUM ADMINISTERED FOR C/O DIARRHEA. WILL MONITOR FOR EFFECTIVENESS.
--- NOTE | 2019-07-19 04:00 | NUR ---
PATIENT RESTING WITH EYES CLOSED. RESPIRATIONS EASY AND UNLABORED. CALL LIGHT IN REACH. WILL MONITOR.
--- NOTE | 2019-07-19 05:20 | NUR ---
MAINTENANCE TEAM LEADER IN TO SEE PATIENT. PATIENT AGREES TO HAVE MEASUREMENTS TAKEN OF FEET AT THIS TIME.
--- NOTE | 2019-07-19 05:23 | NUR ---
YOVANI TATE [id number] Please refer to the physician's history and physical for past medical history, comorbid conditions, and allergies. Diagnosis: UTI Liam Score: 17,AT RISK WOUND DESCRIPTIONS: Wound Number: 1 Location of the wound: right plantar aspect of great toe Type of wound: unstageable Thickness: Full Size: 2.5cm x 2.0cm x >0.1cm Tunneling: none Underminin.5cm at 9 o'clock Sinus Tract: none Presence of Exudate: Purulent Amount: Light Color: Brown, yellow Odor: None Periwound Skin Appearance: Normal Wound edges: approximated Pain (associated with wound): none at time of assessment How does patient state this happened? pt stated this has been ongoing and it open and closes she states that her boyfriend dresses her wounds at this time she stated she used to follow up with Dr. Ward in the wound care center but recently she saw Allison in the wound care center. Wound Number: 2 Location of the wound: left plantar aspect of great toe Type of wound: unstageable Thickness: Full Size: 1.1cm x 1.5cm x >0.1cm Tunneling: none Undermining: none Sinus Tract: none Presence of Exudate: Purulent Amount: Light Color: Brown, yellow Odor: None Periwound Skin Appearance: Normal Wound edges: approximated Pain (associated with wound): none at time of assessment How does patient state this happened? pt stated this has been ongoing and it open and closes she states that her boyfriend dresses her wounds at this time she stated she used to follow up with Dr. Ward in the wound care center but recently she saw Allison in the wound care center. Surface the patient is resting on: Isoflex SKIN PREVENTION RECOMMENDATION: 1. Pressure redistribution support surface as appropriate 2. Elevate heels 3. Remove boots/TEDS every shift and reapply 4. Head of bed 30 degrees as tolerated 5. Assess nutrition and hydration 6. Manage moisture 7. Avoid the use of containment devices while in bed 8. Use absorptive products on surfaces limit layers of linens on bed 9. Turn and reposition every 1-2 hours in bed and every 1 hour in chair as tolerated 10. Weight shifts every 15 minutes while up in chair 11. Offloading with pillows or device to keep heels elevated off bed 12. Monitor skin at least every shift 13. Inspect under medical devices twice a day WOUND TREATMENT RECOMMENDATIONS: Venous and arterial studies to bilateral lower extremity Imaging studies to bilateral to feet due to non-healing wounds Consult Allison Reno SUPERVISOR HOUSECLEANER-BC for possible debridement of bilateral plantar aspect of great toes (is already on consult) Cleanse bilateral plantar aspect of great toes with nss and apply sureprep around the wound therahoney to wound bed and cover with dsd daily and prn for soiling. Heel raiser pro boots to bilateral feet while in bed.
[2019-07-19] MEDS ORDERED: NOVOLOG 70/30 M10 ML SC (05:25)
[2019-07-19 08:00] VITALS: BP 160/82
--- NOTE | 2019-07-19 08:05 | NUR ---
PHYSICAL THERAPY Screen received pt admit from home with UTI and BLE/foot wounds please consult PT if decline in funtional status from baseline, thank you. Flower Dubon PT
[2019-07-19 12:00] VITALS: BP 149/71
[2019-07-19 16:00] VITALS: BP 150/75
--- NOTE | 2019-07-19 19:20 | NUR ---
24 HR chart check completed.
[2019-07-19 20:00] VITALS: BP 112/71
[2019-07-20] VITALS: BP 111/73
[2019-07-20 08:00] VITALS: BP 160/82
[2019-07-20] MEDS ORDERED: HUMULIN 70100 UNIT/1 SC (08:39)
[2019-07-20] MEDS ORDERED: CIPRO500 MG PO (08:41)
--- NOTE | 2019-07-20 11:51 | NUR ---
PT REFUSED DISCHARGE WOUND PHOTOS THEY HAD BEEN TAKEN YESTERDAY POST DEBRIDEMENT AND DRESSINGS WERE CHANGED THIS AM. JUDY STINSON. PT WHEELED PFF FLOOR TO PRIVATE CAR.
== END 2019-07-20 11:53 | disposition home or self-care (01) | DRG 229 ==
LOC: ED 14:01 → 5E 19:09 → EDHOLD 19:09 → 5E 20:24
PROVIDERS: Physician Assistant; ADMIT Internal Medicine
PROC: 0JBQ0ZZ Excision of Right Foot Subcutaneous Tissue and Fascia, Open Approach (ICD-10-PCS; principal; 2019-07-19)
PROC: 0HBNXZZ Excision of Left Foot Skin, External Approach (ICD-10-PCS; 2019-07-19)
DX: K52.9 Noninfective gastroenteritis and colitis, unspecified (principal); L97.521 Non-pressure chronic ulcer of other part of left foot limited to breakdown of skin; N30.80 Other cystitis without hematuria; E11.621 Type 2 diabetes mellitus with foot ulcer; E11.65 Type 2 diabetes mellitus with hyperglycemia; B96.20 Unspecified Escherichia coli [E. coli] as the cause of diseases classified elsewhere; I25.10 Atherosclerotic heart disease of native coronary artery without angina pectoris; L97.512 Non-pressure chronic ulcer of other part of right foot with fat layer exposed; E11.42 Type 2 diabetes mellitus with diabetic polyneuropathy; E78.5 Hyperlipidemia, unspecified; E11.51 Type 2 diabetes mellitus with diabetic peripheral angiopathy without gangrene; J45.909 Unspecified asthma, uncomplicated; I10 Essential (primary) hypertension; M54.5 Low back pain; G89.29 Other chronic pain; Z79.4 Long term (current) use of insulin; I25.2 Old myocardial infarction; Z88.0 Allergy status to penicillin; Z79.82 Long term (current) use of aspirin; Z79.899 Other long term (current) drug therapy; Z91.14 Patient's other noncompliance with medication regimen; Z95.5 Presence of coronary angioplasty implant and graft; Z87.891 Personal history of nicotine dependence; E44.0 Moderate protein-calorie malnutrition; E87.1 Hypo-osmolality and hyponatremia

== ENCOUNTER → 2019-09-08 | Outpatient (CLI) | payer OTHER ==
[~2019-09-08] MED LIST changes: +BUSPAR5 MG PO; +COLACE100 MG PO; +COZAAR100 MG PO; +HUMULIN 70100 UNIT/1 SC; +ISORDIL40 MG PO; +LIPITOR40 MG PO; +OMEPRAZOLE MAGN20 M1 PO; +SYMB80 INH
--- NOTE | 2019-09-08 06:51 | NUR ---
INFORMED CONSENT OBTAINED FOR A LEXISCAN STRESS TEST WITH DR. SANABRIA. RESTIMG EKG NSR WITH A HT RT OF 81 AND BP OD 124/72. BREATH SOUNDS CLEAR FRANKO, SPO2 OF 96% VIA RA. COMPLETED ONE MINUTE OF A LEXISCAN PROTOCOL RECEIVING LEXISCAN 0.4 MG OVER 10 SECONDS. PT VOICED SOB THAT WAS RELIEVED IN RECOVERY. HAD A PEAK HT RT OF 95, WITH A BP OF 120/68. LAST RECOVERY HT RT OF 96, WITH A BP OF 136/78. AWAITING NUCLEAR IMAGING IN STABLE CONDITION.
== END | disposition home or self-care (01) ==
LOC: CARD 00:10
DX: R07.89 Other chest pain (principal); R06.02 Shortness of breath

== ENCOUNTER 2019-12-01 12:40 | Emergency (ER) | payer OTHER ==
[2019-12-01 15:15] VITALS: BP 108/52
== END 2019-12-01 18:29 | disposition short-term general hospital (02) ==
LOC: ED 12:40
DX: S82.852A Displaced trimalleolar fracture of left lower leg, initial encounter for closed fracture (principal); K21.9 Gastro-esophageal reflux disease without esophagitis; I10 Essential (primary) hypertension; E11.9 Type 2 diabetes mellitus without complications; J45.909 Unspecified asthma, uncomplicated; F41.9 Anxiety disorder, unspecified; E78.00 Pure hypercholesterolemia, unspecified; I25.2 Old myocardial infarction; Z88.0 Allergy status to penicillin; Z79.4 Long term (current) use of insulin; Z79.899 Other long term (current) drug therapy; W01.0XXA Fall on same level from slipping, tripping and stumbling without subsequent striking against object, initial encounter; Y93.89 Activity, other specified; Y92.098 Other place in other non-institutional residence as the place of occurrence of the external cause; Y99.8 Other external cause status

== ENCOUNTER 2019-12-26 14:12 | Emergency (ER) | payer OTHER ==
[~2019-12-26] VITALS: Ht 170.1 cm; Wt 94.3 kg
[2019-12-26 14:13] VITALS: BP 126/66
[2019-12-26 15:06] LABS: BASO % 0.5 % (0.0-1.0); EOS # 0.1 10*3/uL (0.0-0.4); EOS % 0.8 % (1.0-4.0); HEMATOCRIT 35.1 % (37.0-47.0); LYMPH # 2.9 10*3/uL (1.3-4.4); LYMPH % 34.2 % (27.0-41.0); MEAN CELL VOLUME 95.1 fl (81.0-99.0); MEAN CORPUSCULAR HGB 31.4 pg (27.0-31.0); MEAN PLATELET VOLUME 10.9 fl (9.6-12.3); MONO # 0.5 10*3/uL (0.1-1.0); MONO % 5.5 % (3.0-9.0); NEUT % 58.8 % (47.0-73.0); PLATELET COUNT AUTOMATED 337 10*3/uL (130-400); RED BLOOD COUNT 3.69 10*6/uL (4.10-5.10); WHITE BLOOD COUNT 8.5 10*3/uL (4.8-10.8)
[2019-12-26 15:17] LABS: ACT PARTIAL THROMBO TIME 27.2 SECONDS (20.0-32.1)
[2019-12-26 15:21] LABS: ALKALINE PHOSPHATASE 96 U/L (45-117); BUN 20 mg/dl (7-24); CHLORIDE 104 mmol/L (98-107); LIPASE 24 U/L (73-393); POTASSIUM 4.1 mmol/L (3.5-5.1); SGOT/AST 18 IU/L (3-35); SGPT/ALT 18 U/L (12-78); SODIUM 136 mmol/L (136-145); TOTAL PROTEIN 7.3 gm/dL (6.4-8.2)
[2019-12-26 15:27] LABS: TROPONIN I < 0.015 ng/ml (<0.045)
[2019-12-26 16:09] LABS: URINE AMPHETAMINES < 1000 (1000ng/ml); URINE BARBITURATES < 200 (200ng/ml); URINE BENZODIAZEPINES < 200 (200ng/ml); URINE CANNABINOIDS (THC) < 50 (50ng/ml); URINE COCAINE < 300 (300ng/ml); URINE METHADONE < 300 (300ng/ml); URINE OPIATES > 300 (300ng/ml)
[2019-12-26 16:10] LABS: URINE PHENCYCLIDINE < 25 (25ng/ml)
[2019-12-26 16:17] LABS: BILIRUBIN 1+ (NEGATIVE); BLOOD NEGATIVE (NEGATIVE); CLARITY CLOUDY (CLEAR); COLOR YELLOW (YELLOW); GLUCOSE NEGATIVE (NEGATIVE); KETONE NEGATIVE (NEGATIVE); LEUKO ESTERASE 2+ (NEGATIVE); NITRITE NEGATIVE (NEGATIVE); SPECIFIC GRAVITY 1.015 (1.005-1.030); UROBILINOGEN 0.2 E.U./dl (0.2-1.0)
[2019-12-26 16:18] LABS: BACTERIA 4+; MUCOUS 1+; WBC TNTC wbc/hpf (0-5)
[2019-12-26] MEDS ORDERED: ATARAX,VISTARIL50 MG PO (16:26)
[2019-12-26] MEDS ORDERED: CEPHALEXIN500 M1 PO (16:26)
== END 2019-12-26 16:50 | disposition home or self-care (01) ==
LOC: ED 14:12
PROVIDERS: Nurse Practitioner Family
DX: F41.9 Anxiety disorder, unspecified (principal); N39.0 Urinary tract infection, site not specified; K21.9 Gastro-esophageal reflux disease without esophagitis; I10 Essential (primary) hypertension; E11.9 Type 2 diabetes mellitus without complications; J45.909 Unspecified asthma, uncomplicated; E78.00 Pure hypercholesterolemia, unspecified; Z88.8 Allergy status to other drugs, medicaments and biological substances; Z79.4 Long term (current) use of insulin; Z79.899 Other long term (current) drug therapy; Z79.82 Long term (current) use of aspirin

== ENCOUNTER 2020-08-27 18:46 | Observation (INO) | payer OTHER ==
[~2020-08-27] VITALS: Ht 167.6 cm; Wt 98.2 kg
[~2020-08-27 18:46] MED LIST changes: +ATARAX,VISTARIL50 MG PO; +CEPHALEXIN500 M1 PO
[2020-08-27 18:54] VITALS: BP 188/79
[2020-08-27 19:47] LABS: BASO # 0.1 10*3/uL (0.0-0.1); BASO % 0.6 % (0.0-1.0); EOS # 0.5 10*3/uL (0.0-0.4); EOS % 6.9 % (1.0-4.0); LYMPH # 1.5 10*3/uL (1.3-4.4); LYMPH % 19.5 % (27.0-41.0); MEAN CELL VOLUME 87.2 fl (81.0-99.0); MEAN CORPUSCULAR HGB 28.9 pg (27.0-31.0); MEAN CORPUSCULAR HGB CONC 33.2 g/dl (33.0-37.0); MEAN PLATELET VOLUME 11.8 fl (9.6-12.3); MONO # 0.5 10*3/uL (0.1-1.0); MONO % 6.8 % (3.0-9.0); NEUT # 5.2 10*3/uL (2.3-7.9); NEUT % 65.8 % (47.0-73.0); PLATELET COUNT AUTOMATED 277 10*3/uL (130-400); RED CELL DISTRI WIDTH 12.5 % (0-14.5); WHITE BLOOD COUNT 7.8 10*3/uL (4.8-10.8)
[2020-08-27 19:49] LABS: BILIRUBIN Negative (Negative); BLOOD 2+ (Negative); CLARITY Clear (Clear); COLOR Yellow (Yellow); GLUCOSE 3+ (Negative); KETONE Trace (Negative); LEUKO ESTERASE Negative (Negative); NITRITE Negative (Negative); PH 6.5 (4.5-8.0); SPECIFIC GRAVITY >= 1.030 (1.001-1.030); UROBILINOGEN 0.2 E.U./dl (0.0-1.0)
[2020-08-27 20:02] LABS: ALBUMIN 2.2 gm/dl (3.1-4.5); ALKALINE PHOSPHATASE 107 U/L (45-117); BUN 10 mg/dl (7-24); CHLORIDE 93 mmol/L (98-107); CPK 197 U/L (26-192); POTASSIUM 3.5 mmol/L (3.5-5.1); SGOT/AST 17 IU/L (3-35); SGPT/ALT 15 U/L (12-78); SODIUM 130 mmol/L (136-145); TOTAL PROTEIN 6.4 gm/dL (6.4-8.2)
[2020-08-27 20:06] LABS: BACTERIA 3+
[2020-08-27 20:46] VITALS: BP 164/74
[2020-08-27 21:00] LABS: INTERNATIONAL NORM RATIO 0.9 (2.0-3.5)
[2020-08-27 21:11] VITALS: BP 156/72
[2020-08-27 23:50] VITALS: BP 160/70
[2020-08-28 08:00] VITALS: BP 129/51
[2020-08-28] MEDS ORDERED: TRESIBA FL100 UNIT/1 SC (11:47)
[2020-08-28 12:00] VITALS: BP 147/64
[2020-08-28 16:00] VITALS: BP 140/53
[2020-08-28 20:00] VITALS: BP 122/90
[2020-08-29] VITALS: BP 139/62
[2020-08-29 06:54] LABS: BASO % 0.4 % (0.0-1.0); EOS # 0.6 10*3/uL (0.0-0.4); EOS % 7.7 % (1.0-4.0); HEMATOCRIT 41.6 % (37.0-47.0); LYMPH # 2.9 10*3/uL (1.3-4.4); LYMPH % 39.9 % (27.0-41.0); MEAN CELL VOLUME 88.7 fl (81.0-99.0); MEAN CORPUSCULAR HGB 29.2 pg (27.0-31.0); MEAN CORPUSCULAR HGB CONC 32.9 g/dl (33.0-37.0); MEAN PLATELET VOLUME 11.4 fl (9.6-12.3); MONO # 0.4 10*3/uL (0.1-1.0); MONO % 5.9 % (3.0-9.0); NEUT # 3.4 10*3/uL (2.3-7.9); NEUT % 45.7 % (47.0-73.0); PLATELET COUNT AUTOMATED 273 10*3/uL (130-400); RED BLOOD COUNT 4.69 10*6/uL (4.10-5.10); WHITE BLOOD COUNT 7.3 10*3/uL (4.8-10.8)
[2020-08-29 07:09] LABS: CREATININE 1.27 mg/dL (0.55-1.02); POTASSIUM 3.6 mmol/L (3.5-5.1)
[2020-08-29 08:00] VITALS: BP 132/63
[2020-08-29 12:00] VITALS: BP 125/60
[2020-08-29 16:00] VITALS: BP 133/67
[2020-08-29 20:00] VITALS: BP 152/68
[2020-08-30] VITALS: BP 144/70
[2020-08-30 08:00] VITALS: BP 147/68
== END 2020-08-30 11:20 | disposition other institution (70) ==
LOC: ED 18:46 → EDHOLD 20:50 → 5E 20:50
PROVIDERS: Internal Medicine; ADMIT Internal Medicine; ATTEND Internal Medicine
DX: R62.7 Adult failure to thrive (principal); E11.65 Type 2 diabetes mellitus with hyperglycemia; I25.10 Atherosclerotic heart disease of native coronary artery without angina pectoris; G89.29 Other chronic pain; M54.5 Low back pain; E78.2 Mixed hyperlipidemia; E11.42 Type 2 diabetes mellitus with diabetic polyneuropathy; I10 Essential (primary) hypertension; N39.0 Urinary tract infection, site not specified; F51.04 Psychophysiologic insomnia; K21.00 Gastro-esophageal reflux disease with esophagitis, without bleeding; K59.09 Other constipation; R53.1 Weakness; Z20.828 Contact with and (suspected) exposure to other viral communicable diseases; Z91.14 Patient's other noncompliance with medication regimen; Z98.890 Other specified postprocedural states; Z87.891 Personal history of nicotine dependence

== ENCOUNTER → 2020-11-07 | Outpatient (CLI) | payer OTHER ==
[~2020-11-07] MED LIST changes: +TRESIBA FL100 UNIT/1 SC
[2020-11-07 11:29] LABS: BASO % 0.3 % (0.0-1.0); EOS # 0.1 10*3/uL (0.0-0.4); EOS % 1.5 % (1.0-4.0); HEMATOCRIT 40.8 % (37.0-47.0); LYMPH # 1.7 10*3/uL (1.3-4.4); LYMPH % 29.2 % (27.0-41.0); MEAN CELL VOLUME 88.9 fl (81.0-99.0); MEAN CORPUSCULAR HGB 29.6 pg (27.0-31.0); MEAN CORPUSCULAR HGB CONC 33.3 g/dl (33.0-37.0); MEAN PLATELET VOLUME 12.1 fl (9.6-12.3); MONO # 0.3 10*3/uL (0.1-1.0); MONO % 4.9 % (3.0-9.0); NEUT # 3.8 10*3/uL (2.3-7.9); NEUT % 63.8 % (47.0-73.0); PLATELET COUNT AUTOMATED 224 10*3/uL (130-400); RED BLOOD COUNT 4.59 10*6/uL (4.10-5.10); RED CELL DISTRI WIDTH 12.1 % (0-14.5); WHITE BLOOD COUNT 5.9 10*3/uL (4.8-10.8)
[2020-11-07 12:01] LABS: ALBUMIN 2.6 gm/dl (3.1-4.5); CREATININE 1.25 mg/dL (0.55-1.02); FREE T4 1.05 ng/dl (0.76-1.46); POTASSIUM 4.3 mmol/L (3.5-5.1); TOTAL PROTEIN 6.8 gm/dL (6.4-8.2)
[2020-11-07 12:05] LABS: THYROID STIM HORMONE (HS) 1.46 uIU/ml (0.358-4.75)
[2020-11-07 12:33] LABS: VITAMIN D, 25-HYDROXY 13.8 ng/mL (30-100)
== END | disposition home or self-care (01) ==
LOC: LAB 10:55
PROVIDERS: ATTEND Internal Medicine
DX: Z00.01 Encounter for general adult medical examination with abnormal findings (principal); I10 Essential (primary) hypertension; E11.9 Type 2 diabetes mellitus without complications; E55.9 Vitamin D deficiency, unspecified; E78.2 Mixed hyperlipidemia

== ENCOUNTER → 2020-11-27 | Outpatient (CLI) | payer OTHER | END | disposition home or self-care (01) | LOC: CARD 00:14 | PROVIDERS: ATTEND Internal Medicine Cardiovascular Disease | DX: I25.10 Atherosclerotic heart disease of native coronary artery without angina pectoris (principal); R53.81 Other malaise ==

== ENCOUNTER 2021-04-05 16:57 | Inpatient (IN) | payer OTHER ==
[~2021-04-05] VITALS: Ht 167.6 cm; Wt 99.0 kg
[~2021-04-05 16:57] MED LIST changes: +BUSPAR15 MG PO; -BUSPAR5 MG PO; -LIPITOR40 MG PO; +LOVASTATIN40 MG PO
[2021-04-05 17:11] VITALS: BP 115/57
[2021-04-05 18:50] LABS: BASO % 0.2 % (0.0-1.0); EOS # 0.1 10*3/uL (0.0-0.4); HEMATOCRIT 35.9 % (37.0-47.0); LYMPH % 17.9 % (27.0-41.0); MEAN CELL VOLUME 89.8 fl (81.0-99.0); MEAN CORPUSCULAR HGB CONC 32.3 g/dl (33.0-37.0); MEAN PLATELET VOLUME 11.4 fl (9.6-12.3); MONO # 0.6 10*3/uL (0.1-1.0); MONO % 5.2 % (3.0-9.0); NEUT # 8.6 10*3/uL (2.3-7.9); NEUT % 75.4 % (47.0-73.0); PLATELET COUNT AUTOMATED 277 10*3/uL (130-400); RED CELL DISTRI WIDTH 12.3 % (0-14.5); WHITE BLOOD COUNT 11.4 10*3/uL (4.8-10.8)
[2021-04-05 19:10] LABS: CREATININE 1.82 mg/dL (0.55-1.02)
[2021-04-05 19:15] LABS: POTASSIUM 5.4 mmol/L (3.5-5.1)
[2021-04-05] MEDS ORDERED: HYDROCODONE-AC1 EAC2 PO (20:21)
[2021-04-05] MEDS ORDERED: TRULICITY3 MG/0.5 M SC (20:26)
[2021-04-05 21:18] VITALS: BP 118/56
[2021-04-06] VITALS (8 sets, daily range): BP systolic 111–146; BP diastolic 50–81
[2021-04-06 09:09] LABS: CREATININE 1.4 mg/dL (0.55-1.02); POTASSIUM 4.9 mmol/L (3.5-5.1)
[2021-04-06] MEDS ORDERED: MONTELUKAST SOD10 MG PO (17:47)
[2021-04-06] MEDS ORDERED: DICLOFENAC SOD75 MG PO (17:47)
[2021-04-06] MEDS ORDERED: GLYBURIDE5 MG PO (17:48)
[2021-04-06] MEDS ORDERED: ZOLOFT25 MG PO (17:49)
[2021-04-06] MEDS ORDERED: SPIRIVA18 MCG PO (17:50)
[2021-04-06] MEDS ORDERED: NATURE'S BLEND F1 MG PO (17:54)
[2021-04-06] MEDS ORDERED: ISOSORBIDE DINI PO (17:56)
[2021-04-06] MEDS ORDERED: TRAD5TAB1 PO (18:00)
[2021-04-06] MEDS ORDERED: TRAZODONE100 MG PO (18:08)
[2021-04-06] MEDS ORDERED: OMEPRAZOLE20 M2 PO (18:09)
[2021-04-06] MEDS ORDERED: METOPROLOL TART50 M1 PO (18:10)
[2021-04-06] MEDS ORDERED: RANOLAZINE ER500 MG PO (18:11)
[2021-04-06] MEDS ORDERED: HYDRALAZINE HYD50 MG PO (18:13)
[2021-04-06] MEDS ORDERED: Ipratropium Brom3 ML INH (18:15)
[2021-04-06] MEDS ORDERED: INCRUSE ELLI62.5 MCG INH (18:17)
[2021-04-06] MEDS ORDERED: NITROGLYCERIN0.4 MG SL (18:22)
[2021-04-06] MEDS ORDERED: FARXIGA5 M1 PO (18:33)
[2021-04-06] MEDS ORDERED: SYMB80 INH (18:34)
[2021-04-06] MEDS ORDERED: TRULICITY3 MG/0.5 M SQ (18:35)
[2021-04-06] MEDS ORDERED: INSULIN AS100 UNIT/3 SC (18:38)
[2021-04-07] VITALS (7 sets, daily range): BP systolic 120–166; BP diastolic 61–92
[2021-04-07 06:55] LABS: CREATININE 1.32 mg/dL (0.55-1.02); POTASSIUM 4.6 mmol/L (3.5-5.1)
[2021-04-08] VITALS: BP 146/61
[2021-04-08 06:27] LABS: BASO % 0.2 % (0.0-1.0); HEMATOCRIT 30.5 % (37.0-47.0); LYMPH # 1.2 10*3/uL (1.3-4.4); LYMPH % 9.8 % (27.0-41.0); MEAN CELL VOLUME 91.3 fl (81.0-99.0); MEAN CORPUSCULAR HGB 29.3 pg (27.0-31.0); MEAN CORPUSCULAR HGB CONC 32.1 g/dl (33.0-37.0); MEAN PLATELET VOLUME 11.9 fl (9.6-12.3); MONO # 0.8 10*3/uL (0.1-1.0); MONO % 6.5 % (3.0-9.0); NEUT # 10.2 10*3/uL (2.3-7.9); NEUT % 83.3 % (47.0-73.0); PLATELET COUNT AUTOMATED 208 10*3/uL (130-400); RED BLOOD COUNT 3.34 10*6/uL (4.10-5.10); RED CELL DISTRI WIDTH 12.4 % (0-14.5); WHITE BLOOD COUNT 12.2 10*3/uL (4.8-10.8)
[2021-04-08 08:00] VITALS: BP 142/60
[2021-04-08 12:00] VITALS: BP 138/64
[2021-04-08 16:00] VITALS: BP 118/69
[2021-04-08 20:00] VITALS: BP 113/84
[2021-04-09] VITALS: BP 138/66
[2021-04-09 07:25] LABS: BASO % 0.3 % (0.0-1.0); EOS # 0.3 10*3/uL (0.0-0.4); EOS % 3.3 % (1.0-4.0); HEMATOCRIT 30.3 % (37.0-47.0); LYMPH # 3.6 10*3/uL (1.3-4.4); LYMPH % 39.7 % (27.0-41.0); MEAN CELL VOLUME 92.1 fl (81.0-99.0); MEAN CORPUSCULAR HGB 29.2 pg (27.0-31.0); MEAN CORPUSCULAR HGB CONC 31.7 g/dl (33.0-37.0); MEAN PLATELET VOLUME 11.3 fl (9.6-12.3); MONO # 0.6 10*3/uL (0.1-1.0); MONO % 6.3 % (3.0-9.0); NEUT # 4.6 10*3/uL (2.3-7.9); NEUT % 50.2 % (47.0-73.0); PLATELET COUNT AUTOMATED 207 10*3/uL (130-400); RED BLOOD COUNT 3.29 10*6/uL (4.10-5.10); RED CELL DISTRI WIDTH 12.7 % (0-14.5); WHITE BLOOD COUNT 9.2 10*3/uL (4.8-10.8)
[2021-04-09 07:48] LABS: CREATININE 1.2 mg/dL (0.55-1.02); POTASSIUM 4.3 mmol/L (3.5-5.1)
[2021-04-09 08:00] VITALS: BP 134/70
[2021-04-09 12:00] VITALS: BP 104/60
[2021-04-09 16:00] VITALS: BP 100/63
[2021-04-09 20:00] VITALS: BP 125/54
[2021-04-10] VITALS: BP 104/54
[2021-04-10 08:00] VITALS: BP 130/75
[2021-04-10 12:00] VITALS: BP 113/50
[2021-04-26] MEDS ORDERED: ZOFRAN4 MG PO (11:20)
== END 2021-04-10 14:38 | disposition home health service (06) | DRG 313 ==
LOC: ED 16:57 → 5E 19:02 → EDHOLD 19:02 → 5E 04-06 14:40
PROVIDERS: Emergency Medicine; Orthopaedic Surgery; ADMIT Internal Medicine; ATTEND Internal Medicine
PROC: 2W3RX1Z Immobilization of Left Lower Leg using Splint (ICD-10-PCS; 2021-04-06)
PROC: 0QSH06Z Reposition Left Tibia with Intramedullary Internal Fixation Device, Open Approach (ICD-10-PCS; principal; 2021-04-07)
PROC: 0SPG04Z Removal of Internal Fixation Device from Left Ankle Joint, Open Approach (ICD-10-PCS; 2021-04-07)
PROC: 3E0T3BZ Introduction of Anesthetic Agent into Peripheral Nerves and Plexi, Percutaneous Approach (ICD-10-PCS; 2021-04-07)
DX: S82.252A Displaced comminuted fracture of shaft of left tibia, initial encounter for closed fracture (principal); Z96.9 Presence of functional implant, unspecified; M97.22XA Periprosthetic fracture around internal prosthetic left ankle joint, initial encounter; E11.22 Type 2 diabetes mellitus with diabetic chronic kidney disease; I25.10 Atherosclerotic heart disease of native coronary artery without angina pectoris; E11.42 Type 2 diabetes mellitus with diabetic polyneuropathy; E78.2 Mixed hyperlipidemia; I12.9 Hypertensive chronic kidney disease with stage 1 through stage 4 chronic kidney disease, or unspecified chronic kidney disease; E87.6 Hypokalemia; R62.7 Adult failure to thrive; N18.32 Chronic kidney disease, stage 3b; X58.XXXA Exposure to other specified factors, initial encounter; Y93.89 Activity, other specified; Y92.89 Other specified places as the place of occurrence of the external cause; Z88.0 Allergy status to penicillin; Z91.19 Patient's noncompliance with other medical treatment and regimen; Z95.5 Presence of coronary angioplasty implant and graft; Z87.891 Personal history of nicotine dependence; Y99.8 Other external cause status; Z79.891 Long term (current) use of opiate analgesic; Z68.35 Body mass index [BMI] 35.0-35.9, adult

== ENCOUNTER → 2021-05-07 | Outpatient (CLI) | payer OTHER ==
[~2021-05-07] MED LIST changes: +DICLOFENAC SOD75 MG PO; +FARXIGA5 M1 PO; +HYDRALAZINE HYD50 MG PO; +HYDROCODONE-AC1 EAC2 PO; +INCRUSE ELLI62.5 MCG INH; +INSULIN AS100 UNIT/3 SC; +ISOSORBIDE DINI PO; +Ipratropium Brom3 ML INH; +METOPROLOL TART50 M1 PO; +MONTELUKAST SOD10 MG PO; +NATURE'S BLEND F1 MG PO; +NITROGLYCERIN0.4 MG SL; +OMEPRAZOLE20 M2 PO; +RANOLAZINE ER500 MG PO; +SPIRIVA18 MCG PO; +TRAD5TAB1 PO; +TRAZODONE100 MG PO; +TRULICITY3 MG/0.5 M SC; +TRULICITY3 MG/0.5 M SQ; +ZOFRAN4 MG PO; +ZOLOFT25 MG PO
== END | disposition home or self-care (01) ==
LOC: CARD 00:08
PROVIDERS: ATTEND Internal Medicine Cardiovascular Disease
DX: R94.39 Abnormal result of other cardiovascular function study (principal); I25.10 Atherosclerotic heart disease of native coronary artery without angina pectoris

== ENCOUNTER → 2021-05-13 | Outpatient (CLI) | payer OTHER | END | disposition home or self-care (01) | LOC: ORTHO 00:35 | PROVIDERS: ATTEND Orthopaedic Surgery | DX: S82.252D Displaced comminuted fracture of shaft of left tibia, subsequent encounter for closed fracture with routine healing (principal); X58.XXXD Exposure to other specified factors, subsequent encounter ==

== ENCOUNTER → 2021-05-20 | Outpatient (CLI) | payer OTHER | END | disposition home or self-care (01) | LOC: ORTHO 00:59 | PROVIDERS: ATTEND Orthopaedic Surgery | DX: S82.252D Displaced comminuted fracture of shaft of left tibia, subsequent encounter for closed fracture with routine healing (principal); X58.XXXD Exposure to other specified factors, subsequent encounter ==

== ENCOUNTER → 2021-07-15 | Outpatient (CLI) | payer OTHER | END | disposition home or self-care (01) | LOC: ORTHO 00:27 | PROVIDERS: ATTEND Orthopaedic Surgery | DX: S82.252D Displaced comminuted fracture of shaft of left tibia, subsequent encounter for closed fracture with routine healing (principal); X58.XXXD Exposure to other specified factors, subsequent encounter ==

== ENCOUNTER → 2021-08-30 | Outpatient (CLI) | payer OTHER | END | disposition home or self-care (01) | LOC: RAD 08-07 13:30 | PROVIDERS: ATTEND Orthopaedic Surgery | DX: M81.6 Localized osteoporosis [Lequesne] (principal); S82.252D Displaced comminuted fracture of shaft of left tibia, subsequent encounter for closed fracture with routine healing; X58.XXXD Exposure to other specified factors, subsequent encounter ==

== ENCOUNTER → 2021-09-12 | Outpatient (CLI) | payer OTHER | END | disposition home or self-care (01) | LOC: US 13:53 | PROVIDERS: ATTEND Internal Medicine | DX: R60.0 Localized edema (principal) ==

== ENCOUNTER → 2021-09-13 | Outpatient (CLI) | payer OTHER | END | disposition home or self-care (01) | LOC: ORTHO 01:50 | PROVIDERS: ATTEND Orthopaedic Surgery | DX: S82.252D Displaced comminuted fracture of shaft of left tibia, subsequent encounter for closed fracture with routine healing (principal); X58.XXXD Exposure to other specified factors, subsequent encounter ==

== ENCOUNTER 2021-10-17 16:32 | Emergency (ER) | payer OTHER ==
[~2021-10-17] VITALS: Ht 167.6 cm; Wt 99.8 kg
[2021-10-17 17:15] VITALS: BP 138/64
[2021-10-17] MEDS ORDERED: VIBRAMYCIN100 MG PO (18:54)
== END 2021-10-17 19:19 | disposition home or self-care (01) ==
LOC: ED 16:32
DX: L73.2 Hidradenitis suppurativa (principal)

== ENCOUNTER → 2021-10-25 | Outpatient (CLI) | payer OTHER ==
[~2021-10-25] MED LIST changes: +VIBRAMYCIN100 MG PO
== END ==
LOC: WOUNDCARE 01:34
PROVIDERS: ATTEND Nurse Practitioner Family
DX: L73.2 Hidradenitis suppurativa (principal); E11.9 Type 2 diabetes mellitus without complications; I10 Essential (primary) hypertension; I25.2 Old myocardial infarction; J45.909 Unspecified asthma, uncomplicated; Z87.891 Personal history of nicotine dependence; Z79.4 Long term (current) use of insulin

== ENCOUNTER → 2021-11-01 | Outpatient (CLI) | payer OTHER | END | disposition home or self-care (01) | LOC: WOUNDCARE 03:57 | PROVIDERS: ATTEND Nurse Practitioner Family | DX: L73.2 Hidradenitis suppurativa (principal); E11.9 Type 2 diabetes mellitus without complications; I25.2 Old myocardial infarction; I10 Essential (primary) hypertension; J45.909 Unspecified asthma, uncomplicated; Z87.891 Personal history of nicotine dependence ==

== ENCOUNTER → 2021-11-07 | Outpatient (CLI) | payer OTHER | END | disposition home or self-care (01) | LOC: WOUNDCARE 02:26 | PROVIDERS: ATTEND Nurse Practitioner Family | DX: L73.2 Hidradenitis suppurativa (principal); L98.492 Non-pressure chronic ulcer of skin of other sites with fat layer exposed; E11.9 Type 2 diabetes mellitus without complications; I10 Essential (primary) hypertension; I25.2 Old myocardial infarction; J45.909 Unspecified asthma, uncomplicated; Z87.891 Personal history of nicotine dependence ==

== ENCOUNTER → 2021-11-21 | Outpatient (CLI) | payer OTHER | END | disposition home or self-care (01) | LOC: WOUNDCARE 00:26 | PROVIDERS: ATTEND Nurse Practitioner Family | DX: L73.2 Hidradenitis suppurativa (principal); E11.9 Type 2 diabetes mellitus without complications; I10 Essential (primary) hypertension; I25.2 Old myocardial infarction; J45.909 Unspecified asthma, uncomplicated; Z87.891 Personal history of nicotine dependence ==

== ENCOUNTER → 2021-11-28 | Outpatient (CLI) | payer OTHER | END | disposition home or self-care (01) | LOC: WOUNDCARE 13:06 | PROVIDERS: ATTEND Nurse Practitioner Family | DX: L89.513 Pressure ulcer of right ankle, stage 3 (principal); L73.2 Hidradenitis suppurativa; S81.801D Unspecified open wound, right lower leg, subsequent encounter; E11.9 Type 2 diabetes mellitus without complications; I10 Essential (primary) hypertension; I25.2 Old myocardial infarction; J45.909 Unspecified asthma, uncomplicated; Z87.891 Personal history of nicotine dependence; X58.XXXD Exposure to other specified factors, subsequent encounter ==

== ENCOUNTER → 2021-12-12 | Outpatient (CLI) | payer OTHER | LOC: WOUNDCARE 01:13 | PROVIDERS: ATTEND Nurse Practitioner Family | DX: L89.512 Pressure ulcer of right ankle, stage 2 (principal); L73.2 Hidradenitis suppurativa ==

== ENCOUNTER → 2021-12-13 | Outpatient (CLI) | payer OTHER | END | disposition home or self-care (01) | LOC: WOUNDCARE 01:25 | PROVIDERS: ATTEND Nurse Practitioner Family | DX: L89.513 Pressure ulcer of right ankle, stage 3 (principal); L73.2 Hidradenitis suppurativa; S81.801D Unspecified open wound, right lower leg, subsequent encounter; E11.9 Type 2 diabetes mellitus without complications; I10 Essential (primary) hypertension; I25.2 Old myocardial infarction; J45.909 Unspecified asthma, uncomplicated; Z87.891 Personal history of nicotine dependence; X58.XXXD Exposure to other specified factors, subsequent encounter ==

== ENCOUNTER → 2021-12-13 | Outpatient (CLI) | payer OTHER | END | disposition home or self-care (01) | LOC: US 12:58 | PROVIDERS: ATTEND Nurse Practitioner Family | DX: S81.801A Unspecified open wound, right lower leg, initial encounter (principal); X58.XXXA Exposure to other specified factors, initial encounter; Y93.89 Activity, other specified; Y92.89 Other specified places as the place of occurrence of the external cause; Y99.8 Other external cause status ==

== ENCOUNTER → 2021-12-19 | Outpatient (CLI) | payer OTHER | LOC: WOUNDCARE 00:27 | PROVIDERS: ATTEND Nurse Practitioner Family | DX: L89.513 Pressure ulcer of right ankle, stage 3 (principal); S81.801D Unspecified open wound, right lower leg, subsequent encounter; L73.2 Hidradenitis suppurativa; E11.9 Type 2 diabetes mellitus without complications; I10 Essential (primary) hypertension; I25.2 Old myocardial infarction; J45.909 Unspecified asthma, uncomplicated; Z87.891 Personal history of nicotine dependence; X58.XXXD Exposure to other specified factors, subsequent encounter ==

== ENCOUNTER → 2021-12-19 | Outpatient (CLI) | payer OTHER | END | disposition home or self-care (01) | LOC: MAMMO 13:40 | PROVIDERS: ATTEND Internal Medicine | DX: Z12.31 Encounter for screening mammogram for malignant neoplasm of breast (principal) ==

== ENCOUNTER → 2022-01-03 | Outpatient (CLI) | payer OTHER ==
[~2022-01-03] MED LIST changes: +ALDACTONE25 MG PO; +ASPIRIN ADULT L81 M2 PO; +FUROSEMIDE40 MG PO; +GLIMEPIRIDE4 M1 PO; +VITAMIN D250 MCG PO
== END | disposition home or self-care (01) ==
LOC: ORTHO 01:12
PROVIDERS: ATTEND Orthopaedic Surgery
DX: S82.252D Displaced comminuted fracture of shaft of left tibia, subsequent encounter for closed fracture with routine healing (principal); X58.XXXD Exposure to other specified factors, subsequent encounter

== ENCOUNTER 2022-01-09 00:11 | Emergency (ER) | payer OTHER ==
[~2022-01-09] VITALS: Ht 165.1 cm; Wt 99.8 kg
[~2022-01-09 00:11] MED LIST changes: -ALDACTONE25 MG PO; -ASPIRIN ADULT L81 M2 PO; -FUROSEMIDE40 MG PO; -GLIMEPIRIDE4 M1 PO; -VITAMIN D250 MCG PO
[2022-01-09] MEDS ORDERED: FUROSEMIDE40 MG PO (00:23)
[2022-01-09] MEDS ORDERED: NATURE'S BLEND F1 MG PO (00:24)
[2022-01-09] MEDS ORDERED: DICLOFENAC SOD75 MG PO (00:28)
[2022-01-09] MEDS ORDERED: HYDROCODONE-AC1 EAC2 PO (00:29)
[2022-01-09 00:30] LABS: BASO % 0.3 % (0.0-1.0); EOS # 0.1 10*3/uL (0.0-0.4); EOS % 1.4 % (1.0-4.0); HEMATOCRIT 25.2 % (37.0-47.0); LYMPH % 11.3 % (27.0-41.0); MEAN CELL VOLUME 93.3 fl (81.0-99.0); MEAN CORPUSCULAR HGB CONC 32.1 g/dl (33.0-37.0); MEAN PLATELET VOLUME 11.3 fl (9.6-12.3); MONO # 0.6 10*3/uL (0.1-1.0); NEUT # 7.3 10*3/uL (2.3-7.9); NEUT % 79.7 % (47.0-73.0); PLATELET COUNT AUTOMATED 243 10*3/uL (130-400); RED CELL DISTRI WIDTH 13.7 % (0-14.5); WHITE BLOOD COUNT 9.1 10*3/uL (4.8-10.8)
[2022-01-09] MEDS ORDERED: GLIMEPIRIDE4 M1 PO (00:30)
[2022-01-09 00:51] LABS: CREATININE 2.14 mg/dL (0.55-1.02); POTASSIUM 4.3 mmol/L (3.5-5.1); TOTAL PROTEIN 5.9 gm/dL (6.4-8.2)
[2022-01-09 05:46] VITALS: BP 121/57
[2022-01-09] MEDS ORDERED: VITAMIN D250 MCG PO (15:41)
== END 2022-01-09 07:25 | disposition home or self-care (01) ==
LOC: ED 00:11
PROVIDERS: Internal Medicine
DX: E11.65 Type 2 diabetes mellitus with hyperglycemia (principal)

== ENCOUNTER 2022-01-09 13:44 | Inpatient (IN) | payer OTHER ==
[~2022-01-09] VITALS: Ht 167.6 cm; Wt 108.9 kg
[~2022-01-09 13:44] MED LIST changes: +FUROSEMIDE40 MG PO; +GLIMEPIRIDE4 M1 PO
[2022-01-09 14:05] VITALS: BP 159/76
[2022-01-09 14:06] VITALS: BP 159/76
[2022-01-09] MEDS ORDERED: VITAMIN D250 MCG PO (15:41)
[2022-01-09 16:00] VITALS: BP 159/76
[2022-01-09 16:52] LABS: BASO % 0.3 % (0.0-1.0); EOS # 0.2 10*3/uL (0.0-0.4); EOS % 2.4 % (1.0-4.0); LYMPH # 1.5 10*3/uL (1.3-4.4); LYMPH % 24.6 % (27.0-41.0); MEAN CELL VOLUME 91.2 fl (81.0-99.0); MEAN CORPUSCULAR HGB 29.3 pg (27.0-31.0); MEAN CORPUSCULAR HGB CONC 32.1 g/dl (33.0-37.0); MEAN PLATELET VOLUME 11.4 fl (9.6-12.3); MONO # 0.5 10*3/uL (0.1-1.0); MONO % 7.7 % (3.0-9.0); NEUT % 64.7 % (47.0-73.0); PLATELET COUNT AUTOMATED 273 10*3/uL (130-400); RED BLOOD COUNT 3.07 10*6/uL (4.10-5.10); RED CELL DISTRI WIDTH 13.5 % (0-14.5); WHITE BLOOD COUNT 6.2 10*3/uL (4.8-10.8)
[2022-01-09 17:03] LABS: CREATININE 1.77 mg/dL (0.55-1.02); POTASSIUM 4.2 mmol/L (3.5-5.1)
[2022-01-09 20:00] VITALS: BP 152/74
[2022-01-10] VITALS: BP 134/58
[2022-01-10 05:28] LABS: CREATININE 1.8 mg/dL (0.55-1.02); POTASSIUM 4.7 mmol/L (3.5-5.1)
[2022-01-10 07:06] LABS: BASO % 0.6 % (0.0-1.0); EOS # 0.2 10*3/uL (0.0-0.4); HEMATOCRIT 30.2 % (37.0-47.0); LYMPH # 1.6 10*3/uL (1.3-4.4); LYMPH % 30.7 % (27.0-41.0); MEAN CELL VOLUME 92.6 fl (81.0-99.0); MEAN CORPUSCULAR HGB 28.8 pg (27.0-31.0); MEAN CORPUSCULAR HGB CONC 31.1 g/dl (33.0-37.0); MEAN PLATELET VOLUME 10.7 fl (9.6-12.3); MONO # 0.5 10*3/uL (0.1-1.0); MONO % 8.5 % (3.0-9.0); PLATELET COUNT AUTOMATED 297 10*3/uL (130-400); RED BLOOD COUNT 3.26 10*6/uL (4.10-5.10); RED CELL DISTRI WIDTH 13.8 % (0-14.5); WHITE BLOOD COUNT 5.3 10*3/uL (4.8-10.8)
[2022-01-10 08:00] VITALS: BP 126/56
[2022-01-10 12:00] VITALS: BP 128/61
[2022-01-10 16:00] VITALS: BP 138/65; BP 150/70
[2022-01-10 20:00] VITALS: BP 129/62
[2022-01-11] VITALS: BP 153/69
[2022-01-11] MEDS ORDERED: HYDROCODONE-AC1 EAC2 PO (07:01)
[2022-01-11] MEDS ORDERED: FUROSEMIDE40 MG PO (07:01)
[2022-01-11] MEDS ORDERED: ASPIRIN ADULT L81 M2 PO (07:01)
[2022-01-11] MEDS ORDERED: TRESIBA FL100 UNIT/1 SC (07:01)
[2022-01-11] MEDS ORDERED: ALDACTONE25 MG PO (07:01)
[2022-01-11 08:00] VITALS: BP 165/64
[2022-01-11 08:14] LABS: CREATININE 1.8 mg/dL (0.55-1.02); POTASSIUM 4.6 mmol/L (3.5-5.1)
== END 2022-01-11 12:24 | disposition home health service (06) | DRG 194 ==
LOC: 4E 13:44
PROVIDERS: ADMIT Internal Medicine; ATTEND Internal Medicine
DX: I13.0 Hypertensive heart and chronic kidney disease with heart failure and stage 1 through stage 4 chronic kidney disease, or unspecified chronic kidney disease (principal); I50.31 Acute diastolic (congestive) heart failure; N18.32 Chronic kidney disease, stage 3b; E78.2 Mixed hyperlipidemia; G89.29 Other chronic pain; M54.50 Low back pain, unspecified; E11.22 Type 2 diabetes mellitus with diabetic chronic kidney disease; E66.01 Morbid (severe) obesity due to excess calories; I25.10 Atherosclerotic heart disease of native coronary artery without angina pectoris; Z68.39 Body mass index [BMI] 39.0-39.9, adult; Z91.19 Patient's noncompliance with other medical treatment and regimen; Z87.891 Personal history of nicotine dependence; Z95.5 Presence of coronary angioplasty implant and graft; Z88.0 Allergy status to penicillin; E44.0 Moderate protein-calorie malnutrition

== ENCOUNTER → 2022-01-17 | Outpatient (CLI) | payer OTHER ==
[~2022-01-17] MED LIST changes: +ALDACTONE25 MG PO; +ASPIRIN ADULT L81 M2 PO; +VITAMIN D250 MCG PO
== END | disposition home or self-care (01) ==
LOC: WOUNDCARE 01-16 01:57
PROVIDERS: ATTEND Nurse Practitioner Family
DX: E11.621 Type 2 diabetes mellitus with foot ulcer (principal); L97.522 Non-pressure chronic ulcer of other part of left foot with fat layer exposed; L89.513 Pressure ulcer of right ankle, stage 3; S81.801D Unspecified open wound, right lower leg, subsequent encounter; E11.40 Type 2 diabetes mellitus with diabetic neuropathy, unspecified; E11.51 Type 2 diabetes mellitus with diabetic peripheral angiopathy without gangrene; I10 Essential (primary) hypertension; I25.2 Old myocardial infarction; J45.909 Unspecified asthma, uncomplicated; Z87.891 Personal history of nicotine dependence; X58.XXXD Exposure to other specified factors, subsequent encounter

== ENCOUNTER → 2022-02-06 | Outpatient (CLI) | payer OTHER | END | disposition home or self-care (01) | LOC: WOUNDCARE 00:18 | PROVIDERS: ATTEND Nurse Practitioner Family | DX: E11.621 Type 2 diabetes mellitus with foot ulcer (principal); L97.512 Non-pressure chronic ulcer of other part of right foot with fat layer exposed; L89.513 Pressure ulcer of right ankle, stage 3; S81.801D Unspecified open wound, right lower leg, subsequent encounter; E11.40 Type 2 diabetes mellitus with diabetic neuropathy, unspecified; E11.51 Type 2 diabetes mellitus with diabetic peripheral angiopathy without gangrene; I10 Essential (primary) hypertension; I25.2 Old myocardial infarction; J45.909 Unspecified asthma, uncomplicated; Z87.891 Personal history of nicotine dependence; X58.XXXD Exposure to other specified factors, subsequent encounter ==

== ENCOUNTER → 2022-02-13 | Outpatient (CLI) | payer OTHER | END | disposition home or self-care (01) | LOC: WOUNDCARE 01:20 | PROVIDERS: ATTEND Nurse Practitioner Family | DX: L89.513 Pressure ulcer of right ankle, stage 3 (principal); S81.801D Unspecified open wound, right lower leg, subsequent encounter; E11.40 Type 2 diabetes mellitus with diabetic neuropathy, unspecified; E11.51 Type 2 diabetes mellitus with diabetic peripheral angiopathy without gangrene; I10 Essential (primary) hypertension; I25.2 Old myocardial infarction; J45.909 Unspecified asthma, uncomplicated; Z87.891 Personal history of nicotine dependence; X58.XXXD Exposure to other specified factors, subsequent encounter ==

== ENCOUNTER → 2022-02-24 | Outpatient (CLI) | payer OTHER ==
[2022-02-24 14:17] LABS: BASO % 0.3 % (0.0-1.0); EOS # 0.3 10*3/uL (0.0-0.4); EOS % 2.9 % (1.0-4.0); HEMATOCRIT 32.9 % (37.0-47.0); LYMPH # 2.6 10*3/uL (1.3-4.4); LYMPH % 29.8 % (27.0-41.0); MEAN CELL VOLUME 88.7 fl (81.0-99.0); MEAN CORPUSCULAR HGB 27.8 pg (27.0-31.0); MEAN CORPUSCULAR HGB CONC 31.3 g/dl (33.0-37.0); MEAN PLATELET VOLUME 10.9 fl (9.6-12.3); MONO # 0.5 10*3/uL (0.1-1.0); MONO % 6.1 % (3.0-9.0); NEUT # 5.2 10*3/uL (2.3-7.9); NEUT % 60.1 % (47.0-73.0); PLATELET COUNT AUTOMATED 189 10*3/uL (130-400); RED BLOOD COUNT 3.71 10*6/uL (4.10-5.10); RED CELL DISTRI WIDTH 12.8 % (0-14.5); WHITE BLOOD COUNT 8.7 10*3/uL (4.8-10.8)
[2022-02-24 14:36] LABS: CREATININE 2.46 mg/dL (0.55-1.02); FREE T4 0.88 ng/dl (0.76-1.46); POTASSIUM 5.1 mmol/L (3.5-5.1); TOTAL PROTEIN 6.9 gm/dL (6.4-8.2)
[2022-02-24 14:41] LABS: THYROID STIM HORMONE (HS) 1.46 uIU/ml (0.358-4.75)
[2022-02-24 14:52] LABS: VITAMIN D, 25-HYDROXY 32.2 ng/mL (30-100)
== END | disposition home or self-care (01) ==
LOC: LAB 13:23
PROVIDERS: ATTEND Internal Medicine
DX: E11.65 Type 2 diabetes mellitus with hyperglycemia (principal); E11.40 Type 2 diabetes mellitus with diabetic neuropathy, unspecified; I10 Essential (primary) hypertension; E11.649 Type 2 diabetes mellitus with hypoglycemia without coma; Z23 Encounter for immunization; D51.9 Vitamin B12 deficiency anemia, unspecified; E78.2 Mixed hyperlipidemia; Z13.89 Encounter for screening for other disorder; R73.09 Other abnormal glucose; Z13.0 Encounter for screening for diseases of the blood and blood-forming organs and certain disorders involving the immune mechanism; Z13.1 Encounter for screening for diabetes mellitus; Z13.21 Encounter for screening for nutritional disorder; Z13.220 Encounter for screening for lipoid disorders; Z13.228 Encounter for screening for other metabolic disorders; Z13.29 Encounter for screening for other suspected endocrine disorder; Z13.6 Encounter for screening for cardiovascular disorders; Z13.9 Encounter for screening, unspecified

== ENCOUNTER → 2022-02-28 | Outpatient (CLI) | payer OTHER | END | disposition home or self-care (01) | LOC: WOUNDCARE 02-27 11:26 | PROVIDERS: ATTEND Nurse Practitioner Family | DX: L89.613 Pressure ulcer of right heel, stage 3 (principal); E11.621 Type 2 diabetes mellitus with foot ulcer; L97.511 Non-pressure chronic ulcer of other part of right foot limited to breakdown of skin; E11.51 Type 2 diabetes mellitus with diabetic peripheral angiopathy without gangrene; E11.40 Type 2 diabetes mellitus with diabetic neuropathy, unspecified; I10 Essential (primary) hypertension; I25.2 Old myocardial infarction; J45.909 Unspecified asthma, uncomplicated; Z87.891 Personal history of nicotine dependence ==

== ENCOUNTER → 2022-03-12 | Outpatient (CLI) | payer OTHER | LOC: WOUNDCARE 01:13 | PROVIDERS: ATTEND Nurse Practitioner Family | DX: Z53.21 Procedure and treatment not carried out due to patient leaving prior to being seen by health care provider (principal) ==

== ENCOUNTER → 2022-03-13 | Outpatient (CLI) | payer OTHER | END | disposition home or self-care (01) | LOC: WOUNDCARE 09:01 | PROVIDERS: ATTEND Nurse Practitioner Family | DX: L89.313 Pressure ulcer of right buttock, stage 3 (principal); E11.621 Type 2 diabetes mellitus with foot ulcer; L97.511 Non-pressure chronic ulcer of other part of right foot limited to breakdown of skin; S81.801D Unspecified open wound, right lower leg, subsequent encounter; E11.40 Type 2 diabetes mellitus with diabetic neuropathy, unspecified; E11.51 Type 2 diabetes mellitus with diabetic peripheral angiopathy without gangrene; I10 Essential (primary) hypertension; I25.2 Old myocardial infarction; J45.909 Unspecified asthma, uncomplicated; Z87.891 Personal history of nicotine dependence; X58.XXXD Exposure to other specified factors, subsequent encounter ==

== ENCOUNTER → 2022-03-17 | Outpatient (CLI) | payer OTHER ==
[~2022-03-17] MED LIST changes: +CIPROFLOXACIN500 M4 PO; +SEPTDS PO
[2022-03-17 15:25] LABS: BILIRUBIN Negative (Negative); BLOOD Trace-Lysed (Negative); CLARITY Turbid (Clear); COLOR Yellow (Yellow); GLUCOSE 3+ (Negative); KETONE Negative (Negative); LEUKO ESTERASE 2+ (Negative); NITRITE Negative (Negative); PH 5.5 (4.5-8.0); UROBILINOGEN 0.2 E.U./dl (0.0-1.0)
[2022-03-17 15:36] LABS: WBC TNTC wbc/hpf (0-5)
[2022-03-17 15:38] LABS: CREATININE 2.23 mg/dL (0.55-1.02); POTASSIUM 5.9 mmol/L (3.5-5.1); TOTAL PROTEIN 7.2 gm/dL (6.4-8.2)
[2022-03-18 11:07] LABS: CREATININE,URINE 53.1 mg/dL (Not Estab.)
== END | disposition home or self-care (01) ==
LOC: LAB 14:33
PROVIDERS: ATTEND Internal Medicine Nephrology
DX: N18.4 Chronic kidney disease, stage 4 (severe) (principal); E87.5 Hyperkalemia; R80.1 Persistent proteinuria, unspecified

== ENCOUNTER → 2022-03-19 | Outpatient (CLI) | payer OTHER | END | disposition home or self-care (01) | LOC: WOUNDCARE 07:13 | PROVIDERS: ATTEND Nurse Practitioner Family | DX: E11.621 Type 2 diabetes mellitus with foot ulcer (principal); L97.511 Non-pressure chronic ulcer of other part of right foot limited to breakdown of skin; L89.513 Pressure ulcer of right ankle, stage 3; S81.801D Unspecified open wound, right lower leg, subsequent encounter; E11.51 Type 2 diabetes mellitus with diabetic peripheral angiopathy without gangrene; E11.40 Type 2 diabetes mellitus with diabetic neuropathy, unspecified; I10 Essential (primary) hypertension; I25.5 Ischemic cardiomyopathy; J45.909 Unspecified asthma, uncomplicated; Z87.891 Personal history of nicotine dependence; X58.XXXD Exposure to other specified factors, subsequent encounter ==

== ENCOUNTER → 2022-03-21 | Outpatient (CLI) | payer OTHER ==
[2022-03-21 12:26] LABS: BASO % 0.4 % (0.0-1.0); EOS # 0.2 10*3/uL (0.0-0.4); EOS % 2.1 % (1.0-4.0); HEMATOCRIT 33.1 % (37.0-47.0); LYMPH # 1.7 10*3/uL (1.3-4.4); LYMPH % 20.2 % (27.0-41.0); MEAN CELL VOLUME 86.9 fl (81.0-99.0); MEAN CORPUSCULAR HGB 27.8 pg (27.0-31.0); MEAN PLATELET VOLUME 11.2 fl (9.6-12.3); MONO # 0.3 10*3/uL (0.1-1.0); MONO % 3.5 % (3.0-9.0); NEUT # 6.1 10*3/uL (2.3-7.9); NEUT % 73.1 % (47.0-73.0); PLATELET COUNT AUTOMATED 256 10*3/uL (130-400); RED BLOOD COUNT 3.81 10*6/uL (4.10-5.10); RED CELL DISTRI WIDTH 15.2 % (0-14.5); WHITE BLOOD COUNT 8.4 10*3/uL (4.8-10.8)
[2022-03-21 12:44] LABS: URINE CREATININE RANDOM 22.1 mg/dL
[2022-03-21 12:46] LABS: CREATININE 2.29 mg/dL (0.55-1.02); TOTAL PROTEIN 7.1 gm/dL (6.4-8.2)
[2022-03-21 13:18] LABS: POTASSIUM 6.4 mmol/L (3.5-5.1)
== END | disposition home or self-care (01) ==
LOC: LAB 11:41
PROVIDERS: ATTEND Internal Medicine Nephrology
DX: N17.9 Acute kidney failure, unspecified (principal)

== ENCOUNTER → 2022-03-26 | Outpatient (CLI) | payer OTHER | END | disposition home or self-care (01) | LOC: WOUNDCARE 02:21 | PROVIDERS: ATTEND Nurse Practitioner Family | DX: E11.621 Type 2 diabetes mellitus with foot ulcer (principal); L97.511 Non-pressure chronic ulcer of other part of right foot limited to breakdown of skin; L89.613 Pressure ulcer of right heel, stage 3; S81.801D Unspecified open wound, right lower leg, subsequent encounter; E11.40 Type 2 diabetes mellitus with diabetic neuropathy, unspecified; E11.51 Type 2 diabetes mellitus with diabetic peripheral angiopathy without gangrene; I25.2 Old myocardial infarction; I10 Essential (primary) hypertension; J45.909 Unspecified asthma, uncomplicated; Z87.891 Personal history of nicotine dependence; X58.XXXD Exposure to other specified factors, subsequent encounter ==

== ENCOUNTER → 2022-04-02 | Outpatient (CLI) | payer OTHER | END | disposition home or self-care (01) | LOC: WOUNDCARE 01:32 | PROVIDERS: ATTEND Nurse Practitioner Family | DX: E11.621 Type 2 diabetes mellitus with foot ulcer (principal); L97.511 Non-pressure chronic ulcer of other part of right foot limited to breakdown of skin; L89.613 Pressure ulcer of right heel, stage 3; S81.801D Unspecified open wound, right lower leg, subsequent encounter; E11.40 Type 2 diabetes mellitus with diabetic neuropathy, unspecified; E11.51 Type 2 diabetes mellitus with diabetic peripheral angiopathy without gangrene; I10 Essential (primary) hypertension; I25.5 Ischemic cardiomyopathy; J45.909 Unspecified asthma, uncomplicated; Z87.891 Personal history of nicotine dependence; X58.XXXD Exposure to other specified factors, subsequent encounter ==

== ENCOUNTER → 2022-04-18 | Outpatient (CLI) | payer OTHER | LOC: WOUNDCARE 07:19 | PROVIDERS: ATTEND Nurse Practitioner Family | DX: E11.621 Type 2 diabetes mellitus with foot ulcer (principal); L97.512 Non-pressure chronic ulcer of other part of right foot with fat layer exposed; L89.893 Pressure ulcer of other site, stage 3; S81.801D Unspecified open wound, right lower leg, subsequent encounter; L84 Corns and callosities; E11.40 Type 2 diabetes mellitus with diabetic neuropathy, unspecified; E11.51 Type 2 diabetes mellitus with diabetic peripheral angiopathy without gangrene; I10 Essential (primary) hypertension; I25.2 Old myocardial infarction; J45.909 Unspecified asthma, uncomplicated; Z87.891 Personal history of nicotine dependence; X58.XXXD Exposure to other specified factors, subsequent encounter ==

== ENCOUNTER → 2022-04-25 | Outpatient (CLI) | payer OTHER | END | disposition home or self-care (01) | LOC: WOUNDCARE 01:17 | PROVIDERS: ATTEND Nurse Practitioner Family | DX: L89.613 Pressure ulcer of right heel, stage 3 (principal); E11.621 Type 2 diabetes mellitus with foot ulcer; L97.511 Non-pressure chronic ulcer of other part of right foot limited to breakdown of skin; S81.801D Unspecified open wound, right lower leg, subsequent encounter; E11.40 Type 2 diabetes mellitus with diabetic neuropathy, unspecified; E11.51 Type 2 diabetes mellitus with diabetic peripheral angiopathy without gangrene; I10 Essential (primary) hypertension; I25.2 Old myocardial infarction; J45.909 Unspecified asthma, uncomplicated; Z87.891 Personal history of nicotine dependence; X58.XXXD Exposure to other specified factors, subsequent encounter ==

== ENCOUNTER → 2022-05-08 | Outpatient (CLI) | payer OTHER | END | disposition home or self-care (01) | LOC: WOUNDCARE 02:18 | PROVIDERS: ATTEND Nurse Practitioner Family | DX: L89.513 Pressure ulcer of right ankle, stage 3 (principal); E11.621 Type 2 diabetes mellitus with foot ulcer; L97.511 Non-pressure chronic ulcer of other part of right foot limited to breakdown of skin; S81.801D Unspecified open wound, right lower leg, subsequent encounter; E11.40 Type 2 diabetes mellitus with diabetic neuropathy, unspecified; E11.51 Type 2 diabetes mellitus with diabetic peripheral angiopathy without gangrene; I10 Essential (primary) hypertension; I25.2 Old myocardial infarction; J45.909 Unspecified asthma, uncomplicated; Z87.891 Personal history of nicotine dependence; X58.XXXD Exposure to other specified factors, subsequent encounter ==

== ENCOUNTER 2022-05-16 15:46 | Inpatient (IN) | payer OTHER ==
[~2022-05-16] VITALS: Ht 167.6 cm; Wt 92.1 kg
[~2022-05-16 15:46] MED LIST changes: -ATARAX,VISTARIL10 MG PO; -LASIX40 MG PO; -PHARMASSURE V500 MCG PO; -VITAMIN D2 1.25MG(50; -VITAMIN D350 MCG PO
[2022-05-16 15:59] VITALS: BP 191/77
[2022-05-16 17:13] LABS: BASO % 0.4 % (0.0-1.0); EOS # 0.1 10*3/uL (0.0-0.4); EOS % 1.8 % (1.0-4.0); HEMATOCRIT 36.3 % (37.0-47.0); LYMPH # 1.9 10*3/uL (1.3-4.4); LYMPH % 24.7 % (27.0-41.0); MEAN CELL VOLUME 90.3 fl (81.0-99.0); MEAN CORPUSCULAR HGB 28.9 pg (27.0-31.0); MEAN PLATELET VOLUME 11.5 fl (9.6-12.3); MONO # 0.5 10*3/uL (0.1-1.0); MONO % 5.7 % (3.0-9.0); NEUT # 5.3 10*3/uL (2.3-7.9); NEUT % 67.3 % (47.0-73.0); PLATELET COUNT AUTOMATED 286 10*3/uL (130-400); RED BLOOD COUNT 4.02 10*6/uL (4.10-5.10); RED CELL DISTRI WIDTH 14.2 % (0-14.5); WHITE BLOOD COUNT 7.9 10*3/uL (4.8-10.8)
[2022-05-16 17:29] LABS: CREATININE 2.3 mg/dL (0.55-1.02); TOTAL PROTEIN 7.4 gm/dL (6.4-8.2)
[2022-05-16 17:35] LABS: POTASSIUM 6.5 mmol/L (3.5-5.1)
[2022-05-16] MEDS ORDERED: PHARMASSURE V500 MCG PO (19:23)
[2022-05-16] MEDS ORDERED: VITAMIN D350 MCG PO (19:23)
[2022-05-16] MEDS ORDERED: FARXIGA5 M1 PO (19:24)
[2022-05-16] MEDS ORDERED: ALDACTONE25 MG PO (19:24)
[2022-05-16] MEDS ORDERED: VITAMIN D2 1.25MG(50 (19:27)
[2022-05-16 20:30] VITALS: BP 140/77
[2022-05-16 22:00] VITALS: BP 166/89; BP 169/89
[2022-05-16] MEDS ORDERED: LASIX40 MG PO (22:31)
[2022-05-16 23:17] LABS: CREATININE 2.12 mg/dL (0.55-1.02); POTASSIUM 5.6 mmol/L (3.5-5.1)
[2022-05-17] VITALS: BP 164/98; BP 174/83
[2022-05-17] MEDS ORDERED: ATARAX,VISTARIL10 MG PO (07:36)
[2022-05-17 08:00] VITALS: BP 151/69
[2022-05-17 08:16] LABS: CREATININE 1.78 mg/dL (0.55-1.02); POTASSIUM 5.6 mmol/L (3.5-5.1)
== END 2022-05-17 15:54 | disposition home or self-care (01) | DRG 420 ==
LOC: ED 15:46 → EDHOLD 17:52 → 4E 21:50
PROVIDERS: Student in an Organized Health Care Education/Training Program; ADMIT Internal Medicine; ATTEND Internal Medicine
DX: E11.00 Type 2 diabetes mellitus with hyperosmolarity without nonketotic hyperglycemic-hyperosmolar coma (NKHHC) (principal); E87.5 Hyperkalemia; N17.0 Acute kidney failure with tubular necrosis; E44.0 Moderate protein-calorie malnutrition; E11.65 Type 2 diabetes mellitus with hyperglycemia; E11.22 Type 2 diabetes mellitus with diabetic chronic kidney disease; I25.10 Atherosclerotic heart disease of native coronary artery without angina pectoris; N18.4 Chronic kidney disease, stage 4 (severe); E78.2 Mixed hyperlipidemia; G89.29 Other chronic pain; I12.9 Hypertensive chronic kidney disease with stage 1 through stage 4 chronic kidney disease, or unspecified chronic kidney disease; E11.42 Type 2 diabetes mellitus with diabetic polyneuropathy; Z88.0 Allergy status to penicillin; Z91.14 Patient's other noncompliance with medication regimen; Z95.5 Presence of coronary angioplasty implant and graft; Z98.891 History of uterine scar from previous surgery; Z68.32 Body mass index [BMI] 32.0-32.9, adult

== ENCOUNTER → 2022-05-16 | Outpatient (CLI) | payer OTHER ==
[~2022-05-16] MED LIST changes: +ATARAX,VISTARIL10 MG PO; +LASIX40 MG PO; +PHARMASSURE V500 MCG PO; +VITAMIN D2 1.25MG(50; +VITAMIN D350 MCG PO
[2022-05-16 12:46] LABS: CREATININE 2.5 mg/dL (0.55-1.02); TOTAL PROTEIN 7.3 gm/dL (6.4-8.2)
== END ==
LOC: LAB 11:55
PROVIDERS: ATTEND Internal Medicine Nephrology
DX: I12.9 Hypertensive chronic kidney disease with stage 1 through stage 4 chronic kidney disease, or unspecified chronic kidney disease (principal); N18.32 Chronic kidney disease, stage 3b; N17.9 Acute kidney failure, unspecified

== ENCOUNTER → 2022-05-22 | Outpatient (CLI) | payer OTHER ==
[~2022-05-22] MED LIST changes: +ATARAX,VISTARIL10 MG PO; +LASIX40 MG PO; +PHARMASSURE V500 MCG PO; +VITAMIN D2 1.25MG(50; +VITAMIN D350 MCG PO
== END | disposition home or self-care (01) ==
LOC: WOUNDCARE 02:27
PROVIDERS: ATTEND Nurse Practitioner Family
DX: L89.513 Pressure ulcer of right ankle, stage 3 (principal); E11.621 Type 2 diabetes mellitus with foot ulcer; L97.511 Non-pressure chronic ulcer of other part of right foot limited to breakdown of skin; S81.801D Unspecified open wound, right lower leg, subsequent encounter; E11.40 Type 2 diabetes mellitus with diabetic neuropathy, unspecified; E11.51 Type 2 diabetes mellitus with diabetic peripheral angiopathy without gangrene; I10 Essential (primary) hypertension; I25.2 Old myocardial infarction; J45.909 Unspecified asthma, uncomplicated; Z87.891 Personal history of nicotine dependence; X58.XXXD Exposure to other specified factors, subsequent encounter

== ENCOUNTER → 2022-06-09 | Outpatient (CLI) | payer OTHER ==
[~2022-06-09] MED LIST changes: +LEVOFLOXACIN500 MG PO
[2022-06-09 14:03] LABS: CREATININE 2.41 mg/dL (0.55-1.02); TOTAL PROTEIN 6.7 gm/dL (6.4-8.2)
[2022-06-09 15:21] LABS: POTASSIUM 6.4 mmol/L (3.5-5.1)
== END | disposition home or self-care (01) ==
LOC: LAB 13:19
PROVIDERS: ATTEND Internal Medicine Nephrology
DX: E87.5 Hyperkalemia (principal)

== ENCOUNTER → 2022-07-08 | Outpatient (CLI) | payer OTHER ==
[~2022-07-08] MED LIST changes: +BASAG SOL SQ; +OMEPRAZOLE MAGN20 MG PO; +SERTRALINE HYDR25 MG PO; +SODIUM BICARBO650 MG PO; +SPIRIVA -- 3018 MCG INH
== END | disposition home or self-care (01) ==
LOC: WOUNDCARE 03:17
PROVIDERS: ATTEND Nurse Practitioner Family
DX: L89.153 Pressure ulcer of sacral region, stage 3 (principal); S81.801D Unspecified open wound, right lower leg, subsequent encounter; E11.40 Type 2 diabetes mellitus with diabetic neuropathy, unspecified; E11.51 Type 2 diabetes mellitus with diabetic peripheral angiopathy without gangrene; I10 Essential (primary) hypertension; I25.2 Old myocardial infarction; J45.909 Unspecified asthma, uncomplicated; Z79.82 Long term (current) use of aspirin; Z79.84 Long term (current) use of oral hypoglycemic drugs; Z79.4 Long term (current) use of insulin; Z87.891 Personal history of nicotine dependence; X58.XXXD Exposure to other specified factors, subsequent encounter

== ENCOUNTER → 2022-08-20 | Outpatient (CLI) | payer OTHER ==
[~2022-08-20] MED LIST changes: +CEFUROXIME AXE250 MG PO; +INSULIN GL SQ; +IRON325 M1 PO; +KLOR-CON M2020 ME1 PO; +LANTUS SOL100 UNIT/1 SC
[2022-08-20 13:11] LABS: POTASSIUM 6.5 mmol/L (3.4-5.1)
== END | disposition home or self-care (01) ==
LOC: LAB 12:05
PROVIDERS: ATTEND Internal Medicine
DX: N17.0 Acute kidney failure with tubular necrosis (principal)

== ENCOUNTER → 2022-11-03 | Outpatient (CLI) | payer OTHER ==
[~2022-11-03] MED LIST changes: +BUDESONIDE0.5 MG/2 M NEB; +GABAPENTIN600 MG PO; +Ipratropium Brom3 ML NEB; +Lantus SC; +OMEPRAZOLE-BIC1 EAC1; -OMEPRAZOLE20 M2 PO
[2022-11-03 13:57] LABS: BILIRUBIN Negative (Negative); BLOOD Negative (Negative); CLARITY Cloudy (Clear); COLOR Yellow (Yellow); GLUCOSE 3+ (Negative); KETONE Negative (Negative); LEUKO ESTERASE 1+ (Negative); NITRITE Positive (Negative); UROBILINOGEN 0.2 E.U./dl (0.0-1.0)
[2022-11-03 14:04] LABS: BASO % 0.4 % (0.0-1.0); EOS # 0.1 10*3/uL (0.0-0.4); EOS % 1.1 % (1.0-4.0); HEMATOCRIT 30.3 % (37.0-47.0); LYMPH # 2.6 10*3/uL (1.3-4.4); LYMPH % 26.4 % (27.0-41.0); MEAN CELL VOLUME 92.1 fl (81.0-99.0); MEAN CORPUSCULAR HGB 28.9 pg (27.0-31.0); MEAN CORPUSCULAR HGB CONC 31.4 g/dl (33.0-37.0); MEAN PLATELET VOLUME 11.6 fl (9.6-12.3); MONO # 0.5 10*3/uL (0.1-1.0); MONO % 5.4 % (3.0-9.0); NEUT # 6.5 10*3/uL (2.3-7.9); NEUT % 66.2 % (47.0-73.0); PLATELET COUNT AUTOMATED 244 10*3/uL (130-400); RED BLOOD COUNT 3.29 10*6/uL (4.10-5.10); RED CELL DISTRI WIDTH 13.9 % (0-14.5); WHITE BLOOD COUNT 9.9 10*3/uL (4.8-10.8)
[2022-11-03 14:09] LABS: BACTERIA 1+; RBC 0-2 rbc/hpf (0-2); WBC 21-30 wbc/hpf (0-5)
[2022-11-03 14:25] LABS: ALKALINE PHOSPHATASE 68 U/L (46-116); BUN 27 mg/dl (9-23); CHLORIDE 98 mmol/L (98-107); POTASSIUM 3.8 mmol/L (3.4-5.1); TOTAL PROTEIN 6.6 gm/dL (6.0-8.0)
[2022-11-03 14:27] LABS: SGPT/ALT < 7 U/L (10-49)
[2022-11-03 14:28] LABS: VITAMIN D, 25-HYDROXY 37.6 ng/mL (30-100)
[2022-11-03 14:30] LABS: URINE CREATININE RANDOM 39.68 mg/dL
== END | disposition home or self-care (01) ==
LOC: LAB 13:06
PROVIDERS: ATTEND Internal Medicine Nephrology
DX: N18.32 Chronic kidney disease, stage 3b (principal); R80.1 Persistent proteinuria, unspecified; R76.8 Other specified abnormal immunological findings in serum; E83.9 Disorder of mineral metabolism, unspecified; D50.9 Iron deficiency anemia, unspecified

== ENCOUNTER → 2022-11-05 | Outpatient (CLI) | payer OTHER | END | disposition home or self-care (01) | LOC: LAB 03:00 | PROVIDERS: ATTEND Internal Medicine Nephrology | DX: N18.32 Chronic kidney disease, stage 3b (principal); E83.9 Disorder of mineral metabolism, unspecified; D50.9 Iron deficiency anemia, unspecified; R80.1 Persistent proteinuria, unspecified; R76.8 Other specified abnormal immunological findings in serum ==

== ENCOUNTER → 2022-12-03 | Outpatient (CLI) | payer OTHER ==
[~2022-12-03] MED LIST changes: +ALDACTONE25 M1 PO; +ELIQUIS2.5 M1 PO; +K-TAB20 MEQ PO; +METOPROLOL TAR100 M1 PO; +PRILOSEC20 M1 PO
== END | disposition home or self-care (01) ==
LOC: ORTHO 02:01
PROVIDERS: ATTEND Orthopaedic Surgery
DX: S82.451A Displaced comminuted fracture of shaft of right fibula, initial encounter for closed fracture (principal); S82.251A Displaced comminuted fracture of shaft of right tibia, initial encounter for closed fracture; X58.XXXA Exposure to other specified factors, initial encounter; Y93.89 Activity, other specified; Y92.89 Other specified places as the place of occurrence of the external cause; Y99.8 Other external cause status

== ENCOUNTER → 2022-12-08 | Outpatient (CLI) | payer OTHER ==
[2022-12-08 15:16] LABS: POTASSIUM 3.4 mmol/L (3.4-5.1)
== END | disposition home or self-care (01) ==
LOC: LAB 14:13
PROVIDERS: ATTEND Internal Medicine
DX: Z13.0 Encounter for screening for diseases of the blood and blood-forming organs and certain disorders involving the immune mechanism (principal); Z13.1 Encounter for screening for diabetes mellitus; Z13.220 Encounter for screening for lipoid disorders; Z13.21 Encounter for screening for nutritional disorder; Z13.228 Encounter for screening for other metabolic disorders; Z13.29 Encounter for screening for other suspected endocrine disorder; Z13.6 Encounter for screening for cardiovascular disorders; Z13.89 Encounter for screening for other disorder; Z13.9 Encounter for screening, unspecified; E03.9 Hypothyroidism, unspecified; E78.2 Mixed hyperlipidemia; E55.9 Vitamin D deficiency, unspecified; I10 Essential (primary) hypertension; E11.9 Type 2 diabetes mellitus without complications

== ENCOUNTER → 2023-01-07 | Outpatient (CLI) | payer OTHER ==
[2023-01-07 14:58] LABS: POTASSIUM 5.1 mmol/L (3.4-5.1)
== END | disposition home or self-care (01) ==
LOC: LAB 13:42
PROVIDERS: ATTEND Internal Medicine
DX: Z13.0 Encounter for screening for diseases of the blood and blood-forming organs and certain disorders involving the immune mechanism (principal); Z13.1 Encounter for screening for diabetes mellitus; Z13.220 Encounter for screening for lipoid disorders; Z13.228 Encounter for screening for other metabolic disorders; Z13.29 Encounter for screening for other suspected endocrine disorder; Z13.6 Encounter for screening for cardiovascular disorders; Z13.89 Encounter for screening for other disorder; Z13.9 Encounter for screening, unspecified; I10 Essential (primary) hypertension; E11.40 Type 2 diabetes mellitus with diabetic neuropathy, unspecified; E11.65 Type 2 diabetes mellitus with hyperglycemia; E11.43 Type 2 diabetes mellitus with diabetic autonomic (poly)neuropathy; F41.1 Generalized anxiety disorder

== ENCOUNTER 2023-01-09 13:09 | Emergency (ER) | payer OTHER ==
[~2023-01-09] VITALS: Ht 170.1 cm; Wt 90.7 kg
[2023-01-09 13:20] VITALS: BP 130/71
[2023-01-09 13:32] LABS: BASO % 0.4 % (0.0-1.0); EOS # 0.2 10*3/uL (0.0-0.4); EOS % 2.5 % (1.0-4.0); HEMATOCRIT 26.5 % (37.0-47.0); LYMPH # 1.3 10*3/uL (1.3-4.4); LYMPH % 15.7 % (27.0-41.0); MEAN CELL VOLUME 96.4 fl (81.0-99.0); MEAN CORPUSCULAR HGB 29.5 pg (27.0-31.0); MEAN CORPUSCULAR HGB CONC 30.6 g/dl (33.0-37.0); MONO # 0.6 10*3/uL (0.1-1.0); MONO % 6.8 % (3.0-9.0); NEUT # 6.3 10*3/uL (2.3-7.9); NEUT % 74.4 % (47.0-73.0); PLATELET COUNT AUTOMATED 207 10*3/uL (130-400); RED BLOOD COUNT 2.75 10*6/uL (4.10-5.10); RED CELL DISTRI WIDTH 14.9 % (0-14.5); WHITE BLOOD COUNT 8.5 10*3/uL (4.8-10.8)
[2023-01-09 14:01] LABS: POTASSIUM 4.9 mmol/L (3.4-5.1)
[2023-01-09] MEDS ORDERED: FUROSEMIDE40 MG PO (14:21)
[2023-01-09] MEDS ORDERED: LASIX40 MG PO ×2 (14:37)
[2023-01-12] MEDS ORDERED: LASIX40 MG PO (08:53)
[2023-01-12] MEDS ORDERED: CEFUROXIME AXE250 MG PO (08:53)
== END 2023-01-09 15:11 | disposition home or self-care (01) ==
LOC: ED 13:09
PROVIDERS: Emergency Medicine
DX: I50.9 Heart failure, unspecified (principal); E11.22 Type 2 diabetes mellitus with diabetic chronic kidney disease; I13.0 Hypertensive heart and chronic kidney disease with heart failure and stage 1 through stage 4 chronic kidney disease, or unspecified chronic kidney disease; N18.9 Chronic kidney disease, unspecified; K21.9 Gastro-esophageal reflux disease without esophagitis; F41.9 Anxiety disorder, unspecified; E78.00 Pure hypercholesterolemia, unspecified; Z79.4 Long term (current) use of insulin; Z86.16 Personal history of COVID-19; Z88.0 Allergy status to penicillin; Z98.890 Other specified postprocedural states; Z95.5 Presence of coronary angioplasty implant and graft; Z87.891 Personal history of nicotine dependence

== ENCOUNTER → 2023-02-16 | Outpatient (CLI) | payer OTHER | END | disposition home or self-care (01) | LOC: LAB 14:37 | PROVIDERS: ATTEND Internal Medicine | DX: I12.9 Hypertensive chronic kidney disease with stage 1 through stage 4 chronic kidney disease, or unspecified chronic kidney disease (principal); E11.22 Type 2 diabetes mellitus with diabetic chronic kidney disease; N18.32 Chronic kidney disease, stage 3b; F41.1 Generalized anxiety disorder; D51.9 Vitamin B12 deficiency anemia, unspecified ==

== ENCOUNTER → 2023-03-06 | Outpatient (CLI) | payer OTHER | END | disposition home or self-care (01) | LOC: WOUNDCARE 01:44 | PROVIDERS: ATTEND Nurse Practitioner Family | DX: E11.622 Type 2 diabetes mellitus with other skin ulcer (principal); L97.822 Non-pressure chronic ulcer of other part of left lower leg with fat layer exposed; L97.322 Non-pressure chronic ulcer of left ankle with fat layer exposed; E11.51 Type 2 diabetes mellitus with diabetic peripheral angiopathy without gangrene; E11.40 Type 2 diabetes mellitus with diabetic neuropathy, unspecified; E78.5 Hyperlipidemia, unspecified; I11.0 Hypertensive heart disease with heart failure; I50.22 Chronic systolic (congestive) heart failure; I25.2 Old myocardial infarction; J44.9 Chronic obstructive pulmonary disease, unspecified; K21.9 Gastro-esophageal reflux disease without esophagitis; Z87.891 Personal history of nicotine dependence ==

== ENCOUNTER → 2023-03-10 | Outpatient (CLI) | payer OTHER | END | disposition home or self-care (01) | LOC: WOUNDCARE 02:20 | PROVIDERS: ATTEND Surgery | DX: E11.622 Type 2 diabetes mellitus with other skin ulcer (principal); L97.322 Non-pressure chronic ulcer of left ankle with fat layer exposed; I87.8 Other specified disorders of veins; E11.40 Type 2 diabetes mellitus with diabetic neuropathy, unspecified; E11.51 Type 2 diabetes mellitus with diabetic peripheral angiopathy without gangrene; E78.5 Hyperlipidemia, unspecified; I11.0 Hypertensive heart disease with heart failure; I50.22 Chronic systolic (congestive) heart failure; J44.9 Chronic obstructive pulmonary disease, unspecified; I25.2 Old myocardial infarction; K21.9 Gastro-esophageal reflux disease without esophagitis; Z87.891 Personal history of nicotine dependence ==

== ENCOUNTER → 2023-03-18 | Outpatient (CLI) | payer OTHER | END | disposition home or self-care (01) | LOC: WOUNDCARE 01:22 | PROVIDERS: ATTEND Nurse Practitioner Family | DX: E11.622 Type 2 diabetes mellitus with other skin ulcer (principal); L97.822 Non-pressure chronic ulcer of other part of left lower leg with fat layer exposed; E11.51 Type 2 diabetes mellitus with diabetic peripheral angiopathy without gangrene; E11.40 Type 2 diabetes mellitus with diabetic neuropathy, unspecified; E78.5 Hyperlipidemia, unspecified; I11.0 Hypertensive heart disease with heart failure; I50.22 Chronic systolic (congestive) heart failure; I87.2 Venous insufficiency (chronic) (peripheral); I25.2 Old myocardial infarction; J44.9 Chronic obstructive pulmonary disease, unspecified; K21.9 Gastro-esophageal reflux disease without esophagitis; Z87.891 Personal history of nicotine dependence ==

== ENCOUNTER → 2023-03-26 | Outpatient (CLI) | payer OTHER | END | disposition home or self-care (01) | LOC: WOUNDCARE 00:33 | PROVIDERS: ATTEND Nurse Practitioner Family | DX: E11.622 Type 2 diabetes mellitus with other skin ulcer (principal); L97.822 Non-pressure chronic ulcer of other part of left lower leg with fat layer exposed; L97.811 Non-pressure chronic ulcer of other part of right lower leg limited to breakdown of skin; E11.51 Type 2 diabetes mellitus with diabetic peripheral angiopathy without gangrene; I11.0 Hypertensive heart disease with heart failure; I50.22 Chronic systolic (congestive) heart failure; E11.40 Type 2 diabetes mellitus with diabetic neuropathy, unspecified; E78.5 Hyperlipidemia, unspecified; J44.9 Chronic obstructive pulmonary disease, unspecified; I25.2 Old myocardial infarction; I87.2 Venous insufficiency (chronic) (peripheral); K21.9 Gastro-esophageal reflux disease without esophagitis; Z87.891 Personal history of nicotine dependence ==

== ENCOUNTER → 2023-08-24 | Outpatient (CLI) | payer OTHER ==
[~2023-08-24] MED LIST changes: +BUSPIRONE HCL15 MG PO; +FEROSUL325 MG PO; +LOPRESSOR100 M1 PO; +METOCLOPRAMIDE H5 M1 PO; +NEURONTIN600 MG PO; +VIBRAMYCIN HYC100 MG PO
== END | disposition home or self-care (01) ==
LOC: WOUNDCARE 00:40
PROVIDERS: ATTEND Nurse Practitioner Family
DX: E11.621 Type 2 diabetes mellitus with foot ulcer (principal); L97.412 Non-pressure chronic ulcer of right heel and midfoot with fat layer exposed; L97.422 Non-pressure chronic ulcer of left heel and midfoot with fat layer exposed; E11.622 Type 2 diabetes mellitus with other skin ulcer; L97.822 Non-pressure chronic ulcer of other part of left lower leg with fat layer exposed; L97.811 Non-pressure chronic ulcer of other part of right lower leg limited to breakdown of skin; L89.892 Pressure ulcer of other site, stage 2; L03.116 Cellulitis of left lower limb; E11.51 Type 2 diabetes mellitus with diabetic peripheral angiopathy without gangrene; I87.2 Venous insufficiency (chronic) (peripheral); I11.0 Hypertensive heart disease with heart failure; I50.9 Heart failure, unspecified; J44.9 Chronic obstructive pulmonary disease, unspecified; Z87.891 Personal history of nicotine dependence; Z79.4 Long term (current) use of insulin

== ENCOUNTER → 2023-09-22 | Outpatient (CLI) | payer OTHER ==
[~2023-09-22] MED LIST changes: +VICTOZA 2-0.6 MG/0.1 SC
== END | disposition home or self-care (01) ==
LOC: WOUNDCARE 01:34
PROVIDERS: ATTEND Nurse Practitioner Family
DX: E11.622 Type 2 diabetes mellitus with other skin ulcer (principal); L97.822 Non-pressure chronic ulcer of other part of left lower leg with fat layer exposed; E11.621 Type 2 diabetes mellitus with foot ulcer; L97.522 Non-pressure chronic ulcer of other part of left foot with fat layer exposed; L97.412 Non-pressure chronic ulcer of right heel and midfoot with fat layer exposed; L97.422 Non-pressure chronic ulcer of left heel and midfoot with fat layer exposed; E11.51 Type 2 diabetes mellitus with diabetic peripheral angiopathy without gangrene; I87.2 Venous insufficiency (chronic) (peripheral); L03.116 Cellulitis of left lower limb; I11.0 Hypertensive heart disease with heart failure; I50.9 Heart failure, unspecified; J44.9 Chronic obstructive pulmonary disease, unspecified; Z87.891 Personal history of nicotine dependence; Z79.4 Long term (current) use of insulin

== ENCOUNTER 2024-02-12 11:17 | Inpatient (IN) | payer OTHER ==
[~2024-02-12] VITALS: Ht 170.1 cm; Wt 90.7 kg
[~2024-02-12 11:17] MED LIST changes: +ALENDRONATE SOD70 M1 PO; +AMMONIUM LACTA227 GM T; +ELIQUIS5 M1 PO; +PREMIERPRO RX ME1 GM IV; +REGLAN5 MG PO; +VICTOZA 2-0.6 MG/0.1 SQ
[2024-02-12 11:35] VITALS: BP 164/99
[2024-02-12] MEDS ORDERED: Ondansetron Hydrochloride 4 MG/2 ML VIAL IV ONE (11:50)
[2024-02-12] MEDS ORDERED: SODIUM CHLORIDE 0.9% 1,000 ML IV ONE ×2 (11:50→20:05)
[2024-02-12] MEDS ORDERED: IOHEXOL 300 MG/ML 100 ML VIAL IV ONE (11:55)
[2024-02-12 12:09] LABS: BASO % 0.5 % (0.0-1.0); EOS % 0.2 % (1.0-4.0); HEMATOCRIT 42.9 % (37.0-47.0); LYMPH # 0.7 10*3/uL (1.3-4.4); LYMPH % 10.1 % (27.0-41.0); MEAN CELL VOLUME 94.5 fl (81.0-99.0); MEAN CORPUSCULAR HGB CONC 31.7 g/dl (33.0-37.0); MEAN PLATELET VOLUME 11.1 fl (9.6-12.3); MONO # 0.1 10*3/uL (0.1-1.0); NEUT # 5.7 10*3/uL (2.3-7.9); PLATELET COUNT AUTOMATED 212 10*3/uL (130-400); RED BLOOD COUNT 4.54 10*6/uL (4.10-5.10); RED CELL DISTRI WIDTH 12.2 % (0-14.5); WHITE BLOOD COUNT 6.6 10*3/uL (4.8-10.8)
[2024-02-12 12:40] LABS: ALKALINE PHOSPHATASE 101 U/L (46-116); BUN 19 mg/dl (9-23); CHLORIDE 103 mmol/L (98-107); LIPASE 22 U/L (12-53); POTASSIUM 5.7 mmol/L (3.4-5.1); SGPT/ALT 11 U/L (5-49); TOTAL PROTEIN 7.2 gm/dL (6.0-8.0)
[2024-02-12] MEDS ORDERED: INSULIN REGULAR, HUMAN 1 UNIT/0.01 ML IV ONE (12:55)
[2024-02-12] MEDS ORDERED: Albuterol Sulfate 2.5 MG/3 ML VIAL NEB ONE (12:55)
[2024-02-12 13:14] LABS: BILIRUBIN Negative (Negative); BLOOD 2+ (Negative); CLARITY Clear (Clear); COLOR Yellow (Yellow); GLUCOSE 3+ (Negative); KETONE 1+ (Negative); LEUKO ESTERASE Negative (Negative); NITRITE Negative (Negative); SPECIFIC GRAVITY 1.025 (1.001-1.030); UROBILINOGEN 0.2 E.U./dl (0.0-1.0)
[2024-02-12 13:45] LABS: BACTERIA 1+; EPITHELIAL CELLS 16-20; YEAST 2+
[2024-02-12 16:03] VITALS: BP 154/78
[2024-02-12] MEDS ORDERED: Ceftriaxone Sodium 1 GM/10 ML SYR IV ONE (16:05)
[2024-02-12] MEDS ORDERED: Acetaminophen/Hydrocodone ES 7.5/325 tablet PO PRN (20:00)
[2024-02-12 20:26] VITALS: BP 218/100
[2024-02-12] MEDS ORDERED: APIXABAN 5 MG TAB PO SCH (22:00)
[2024-02-12] MEDS ORDERED: GABAPENTIN 300 MG CAP PO SCH (22:00)
[2024-02-12] MEDS ORDERED: Metoprolol Tartrate 100 MG TAB PO SCH (22:00)
[2024-02-12] MEDS ORDERED: LEVOFLOXACIN 100 ML IV SCH (22:00)
[2024-02-13] VITALS (16 sets, daily range): BP systolic 72–245; BP diastolic 27–136
[2024-02-13] MEDS ORDERED: Ondansetron Hydrochloride 4 MG/2 ML VIAL IV PRN (01:35)
[2024-02-13] MEDS ORDERED: Metoprolol Tartrate 5 MG/5 ML VIAL IV ONE ×2 (01:35→02:45)
[2024-02-13] MEDS ORDERED: DEXTROSE 10 % IN WATER 250 ML IV PRN (01:40)
[2024-02-13] MEDS ORDERED: INSULIN LISPRO 1 UNIT/0.01 ML SQ SCH (01:45)
[2024-02-13] MEDS ORDERED: Pantoprazole Sodium 40 MG VIAL IV SCH (03:40)
[2024-02-13] MEDS ORDERED: hydrALAZINE hydrochloride 20 MG/ML VIAL IV ONE (03:50)
[2024-02-13] MEDS ORDERED: hydrALAZINE hydrochloride 20 MG/ML VIAL IV PRN (03:50)
[2024-02-13] MEDS ORDERED: NITROGLYCERIN 1 IN PACKET T SCH (03:50)
[2024-02-13 04:01] LABS: HEMATOCRIT 46.5 % (37.0-47.0); MEAN CELL VOLUME 92.6 fl (81.0-99.0); MEAN CORPUSCULAR HGB 30.1 pg (27.0-31.0); MEAN CORPUSCULAR HGB CONC 32.5 g/dl (33.0-37.0); MEAN PLATELET VOLUME 11.5 fl (9.6-12.3); PLATELET COUNT AUTOMATED 255 10*3/uL (130-400); RED BLOOD COUNT 5.02 10*6/uL (4.10-5.10); RED CELL DISTRI WIDTH 12.4 % (0-14.5); WHITE BLOOD COUNT 13.2 10*3/uL (4.8-10.8)
[2024-02-13 04:04] LABS: MANUAL DIFF REFLEX YES
[2024-02-13 04:25] LABS: PLATELET SUFFICIENCY NORMAL (NORMAL); TOTAL CELLS COUNTED 100 #CELLS
[2024-02-13] MEDS ORDERED: hydrALAZINE hydrochloride 20 MG/ML VIAL IM ONE (04:25)
[2024-02-13 04:26] LABS: BURR CELLS FEW
[2024-02-13 04:38] LABS: POTASSIUM 4.5 mmol/L (3.4-5.1)
[2024-02-13] MEDS ORDERED: Ondansetron Hydrochloride 4 MG/2 ML VIAL IV SCH (06:00)
[2024-02-13] MEDS ORDERED: busPIRone Hydrochloride 15 MG TAB PO SCH (10:00)
[2024-02-13] MEDS ORDERED: Metoprolol Tartrate 5 MG/5 ML VIAL IV SCH (10:00)
[2024-02-13] MEDS ORDERED: FUROSEMIDE 40 MG TAB PO SCH (10:00)
[2024-02-13] MEDS ORDERED: LIRAGLUTIDE 6 MG/ML PEN SC SCH (10:00)
[2024-02-13] MEDS ORDERED: ISOSORBIDE DINITRATE 10 MG TAB PO SCH (10:00)
[2024-02-13] MEDS ORDERED: AMMONIUM LACTATE 12% LOTION T SCH (10:00)
[2024-02-13] MEDS ORDERED: Sertraline Hydrochloride 50 MG TAB PO SCH (10:00)
[2024-02-13] MEDS ORDERED: GLIMEPIRIDE 2 MG TAB PO SCH (10:00)
[2024-02-13] MEDS ORDERED: SODIUM CHLORIDE 0.9% 1,000 ML IV SCH (11:00)
[2024-02-13] MEDS ORDERED: MG-AL HYDROXIDE/SIMETICONE 30 ML UDC PO PRN (11:45)
[2024-02-13 12:23] LABS: BASO % 0.1 % (0.0-1.0); HEMATOCRIT 43.4 % (37.0-47.0); LYMPH # 1.2 10*3/uL (1.3-4.4); LYMPH % 8.2 % (27.0-41.0); MEAN CELL VOLUME 90.2 fl (81.0-99.0); MEAN CORPUSCULAR HGB 30.6 pg (27.0-31.0); MEAN CORPUSCULAR HGB CONC 33.9 g/dl (33.0-37.0); MEAN PLATELET VOLUME 11.2 fl (9.6-12.3); MONO # 0.7 10*3/uL (0.1-1.0); MONO % 4.6 % (3.0-9.0); NEUT # 12.2 10*3/uL (2.3-7.9); NEUT % 86.7 % (47.0-73.0); PLATELET COUNT AUTOMATED 266 10*3/uL (130-400); RED BLOOD COUNT 4.81 10*6/uL (4.10-5.10); RED CELL DISTRI WIDTH 12.7 % (0-14.5)
[2024-02-13] MEDS ORDERED: PROPOFOL 100 ML IV ONE (12:58)
[2024-02-13 13:07] LABS: ABG BASE EXCESS -0.7 mmol/L (-2.0-2.0); ARTERIAL BLOOD GAS PH 7.448 (7.35-7.45)
[2024-02-13] MEDS ORDERED: NOREPINEPHRINE BITARTRATE/D5W 250 ML IV ONE (13:59)
[2024-02-13] MEDS ORDERED: PROPOFOL 200 MG/20 ML VIAL IV ONE (14:58)
[2024-02-13] MEDS ORDERED: Succinylcholine Chloride 200 MG/10 ML SYRINGE IV ONE (14:58)
[2024-02-13] MEDS ORDERED: NOREPINEPHRINE BITARTRATE/D5W 250 ML IV SCH (15:50)
[2024-02-13] MEDS ORDERED: PROPOFOL 50 ML IV SCH (15:50)
== END 2024-02-13 18:15 | disposition short-term general hospital (02) | DRG 190 ==
LOC: ED 11:17 → EDHOLD 16:43 → 4E 16:43 → ICCU 02-13 12:20
PROVIDERS: Internal Medicine; ADMIT Internal Medicine; ATTEND Internal Medicine
PROC: 02HV33Z Insertion of Infusion Device into Superior Vena Cava, Percutaneous Approach (ICD-10-PCS; principal; 2024-02-13)
PROC: B548ZZA Ultrasonography of Superior Vena Cava, Guidance (ICD-10-PCS; 2024-02-13)
PROC: 5A1935Z Respiratory Ventilation, Less than 24 Consecutive Hours (ICD-10-PCS; 2024-02-13)
PROC: 0BH17EZ Insertion of Endotracheal Airway into Trachea, Via Natural or Artificial Opening (ICD-10-PCS; 2024-02-13)
DX: I21.4 Non-ST elevation (NSTEMI) myocardial infarction (principal); J96.01 Acute respiratory failure with hypoxia; S32.592A Other specified fracture of left pubis, initial encounter for closed fracture; G93.41 Metabolic encephalopathy; N17.9 Acute kidney failure, unspecified; N30.90 Cystitis, unspecified without hematuria; E87.20 Acidosis, unspecified; M86.8X6 Other osteomyelitis, lower leg; E11.52 Type 2 diabetes mellitus with diabetic peripheral angiopathy with gangrene; L03.116 Cellulitis of left lower limb; G89.4 Chronic pain syndrome; N18.32 Chronic kidney disease, stage 3b; E78.2 Mixed hyperlipidemia; I48.21 Permanent atrial fibrillation; E11.40 Type 2 diabetes mellitus with diabetic neuropathy, unspecified; E11.22 Type 2 diabetes mellitus with diabetic chronic kidney disease; I25.10 Atherosclerotic heart disease of native coronary artery without angina pectoris; E11.65 Type 2 diabetes mellitus with hyperglycemia; E87.5 Hyperkalemia; F41.1 Generalized anxiety disorder; E11.69 Type 2 diabetes mellitus with other specified complication; E11.628 Type 2 diabetes mellitus with other skin complications; L08.9 Local infection of the skin and subcutaneous tissue, unspecified; M85.80 Other specified disorders of bone density and structure, unspecified site; Z88.0 Allergy status to penicillin; Z95.5 Presence of coronary angioplasty implant and graft; Z98.891 History of uterine scar from previous surgery; X58.XXXA Exposure to other specified factors, initial encounter; Y93.89 Activity, other specified; Y92.89 Other specified places as the place of occurrence of the external cause; Y99.8 Other external cause status

== ENCOUNTER 2024-03-09 16:35 | Emergency (ER) | payer OTHER ==
[2024-03-09] MEDS ORDERED: SODIUM CHLORIDE 0.9% 1,000 ML IV ONE (16:40)
[2024-03-09 16:52] LABS: BASO % 0.3 % (0.0-1.0); EOS # 0.2 10*3/uL (0.0-0.4); EOS % 1.5 % (1.0-4.0); HEMATOCRIT 33.9 % (37.0-47.0); LYMPH # 1.2 10*3/uL (1.3-4.4); LYMPH % 10.7 % (27.0-41.0); MEAN CELL VOLUME 97.1 fl (81.0-99.0); MEAN CORPUSCULAR HGB 30.4 pg (27.0-31.0); MEAN CORPUSCULAR HGB CONC 31.3 g/dl (33.0-37.0); MEAN PLATELET VOLUME 11.6 fl (9.6-12.3); MONO # 0.4 10*3/uL (0.1-1.0); MONO % 3.7 % (3.0-9.0); NEUT # 9.1 10*3/uL (2.3-7.9); NEUT % 83.6 % (47.0-73.0); PLATELET COUNT AUTOMATED 281 10*3/uL (130-400); RED BLOOD COUNT 3.49 10*6/uL (4.10-5.10); RED CELL DISTRI WIDTH 13.1 % (0-14.5); WHITE BLOOD COUNT 10.8 10*3/uL (4.8-10.8)
[2024-03-09 17:03] LABS: ACT PARTIAL THROMBO TIME 27.5 SECONDS (20.0-32.1)
[2024-03-09 17:20] LABS: POTASSIUM 5.3 mmol/L (3.4-5.1); TOTAL PROTEIN 6.8 gm/dL (6.0-8.0)
[2024-03-09] MEDS ORDERED: DEXTROSE 50% 25 GM/50 ML SYR IV ONE (17:55)
[2024-03-09] MEDS ORDERED: INSULIN REGULAR, HUMAN 1 UNIT/0.01 ML IV ONE (17:55)
[2024-03-09] MEDS ORDERED: Albuterol Sulfate 2.5 MG/3 ML VIAL NEB ONE (17:55)
[2024-03-09] MEDS ORDERED: Ondansetron Hydrochloride 4 MG TAB SL ONE (23:00)
[2024-03-10] VITALS: BP 148/62
== END 2024-03-09 23:58 ==
LOC: ED 16:35
PROVIDERS: Internal Medicine
DX: R11.10 Vomiting, unspecified (principal); E87.5 Hyperkalemia; I21.4 Non-ST elevation (NSTEMI) myocardial infarction; Z88.0 Allergy status to penicillin; Z79.899 Other long term (current) drug therapy; Z95.5 Presence of coronary angioplasty implant and graft; Z98.890 Other specified postprocedural states; Z87.891 Personal history of nicotine dependence

== ENCOUNTER 2024-04-05 11:56 | Inpatient (IN) | payer OTHER ==
[~2024-04-05] VITALS: Ht 167.6 cm; Wt 92.1 kg
[2024-04-05 12:13] VITALS: BP 138/74
[2024-04-05 14:11] LABS: BASO % 0.4 % (0.0-1.0); EOS # 0.2 10*3/uL (0.0-0.4); EOS % 2.6 % (1.0-4.0); HEMATOCRIT 33.3 % (37.0-47.0); LYMPH # 2.3 10*3/uL (1.3-4.4); LYMPH % 31.1 % (27.0-41.0); MEAN CORPUSCULAR HGB 29.7 pg (27.0-31.0); MEAN CORPUSCULAR HGB CONC 30.9 g/dl (33.0-37.0); MEAN PLATELET VOLUME 10.8 fl (9.6-12.3); MONO # 0.4 10*3/uL (0.1-1.0); MONO % 5.4 % (3.0-9.0); NEUT # 4.5 10*3/uL (2.3-7.9); NEUT % 60.2 % (47.0-73.0); PLATELET COUNT AUTOMATED 289 10*3/uL (130-400); RED BLOOD COUNT 3.47 10*6/uL (4.10-5.10); RED CELL DISTRI WIDTH 12.9 % (0-14.5); WHITE BLOOD COUNT 7.4 10*3/uL (4.8-10.8)
[2024-04-05 14:31] LABS: POTASSIUM 4.9 mmol/L (3.4-5.1); TOTAL PROTEIN 6.5 gm/dL (6.0-8.0)
[2024-04-05] MEDS ORDERED: Vancomycin Hydrochloride 250 ML IV ONE (15:50)
[2024-04-05] MEDS ORDERED: ATARAX,VISTARIL10 MG PO (17:41)
[2024-04-05] MEDS ORDERED: ELIQUIS2.5 M1 PO (17:43)
[2024-04-05] MEDS ORDERED: LANTUS SOL100 UNIT/1 SQ (17:44)
[2024-04-05] MEDS ORDERED: VITAMIN D31250 MC1 PO (17:46)
[2024-04-05] MEDS ORDERED: SIMVASTATIN40 MG PO (17:47)
[2024-04-05] MEDS ORDERED: LOMOTIL 2.5-0.1 EACH PO (17:49)
[2024-04-05] MEDS ORDERED: DEXTROSE 10 % IN WATER 250 ML IV PRN (18:45)
[2024-04-05] MEDS ORDERED: Atropine Sulfate/Diphenoxyla 1 TAB TAB PO PRN (18:50)
[2024-04-05] MEDS ORDERED: Technetium Tc 99M Medronate 1 KIT KIT IV SCH (19:15)
[2024-04-05] MEDS ORDERED: Piperacillin Sodium/Tazobact 2.25 GM in SODIUM CHLORIDE 0.9% 50 ML IV SCH (20:00)
[2024-04-05] MEDS ORDERED: Insulin Glargine, Recombinan 1 UNIT/0.01 ML SC SCH (22:00)
[2024-04-05] MEDS ORDERED: GABAPENTIN 600 MG TAB PO SCH (22:00)
[2024-04-05] MEDS ORDERED: SIMVASTATIN 20 MG TAB PO SCH (22:00)
[2024-04-05] MEDS ORDERED: busPIRone Hydrochloride 15 MG TAB PO SCH (22:00)
[2024-04-05] MEDS ORDERED: INSULIN REGULAR, HUMAN 1 UNIT/0.01 ML SC SCH (22:00)
[2024-04-05] MEDS ORDERED: Metoprolol Tartrate 100 MG TAB PO SCH (22:00)
[2024-04-05 23:56] VITALS: BP 159/66
[2024-04-06] VITALS (7 sets, daily range): BP systolic 120–188; BP diastolic 64–98
[2024-04-06] MEDS ORDERED: GLIMEPIRIDE 2 MG TAB PO SCH (07:30)
[2024-04-06] MEDS ORDERED: DEXTROSE 10 % IN WATER 250 ML IV PRN (07:50)
[2024-04-06] MEDS ORDERED: DIAZEPAM 5 MG TAB PO ONE (09:40)
[2024-04-06] MEDS ORDERED: ISOSORBIDE DINITRATE 10 MG TAB PO SCH (10:00)
[2024-04-06] MEDS ORDERED: APIXABAN 5 MG TAB PO SCH ×2 (10:00)
[2024-04-06] MEDS ORDERED: Montelukast Sodium 10 MG TAB PO SCH (10:00)
[2024-04-06] MEDS ORDERED: Sertraline Hydrochloride 50 MG TAB PO SCH (10:00)
[2024-04-06] MEDS ORDERED: FERROUS SULFATE 325 MG TAB PO SCH (10:00)
[2024-04-06] MEDS ORDERED: LINAGLIPTIN 5 MG TAB PO SCH (10:00)
[2024-04-06] MEDS ORDERED: FUROSEMIDE 40 MG TAB PO SCH (10:00)
[2024-04-06] MEDS ORDERED: FOLIC ACID 1 MG TAB PO SCH (10:00)
[2024-04-06] MEDS ORDERED: INSULIN REGULAR, HUMAN 1 UNIT/0.01 ML SC SCH (11:30)
[2024-04-06] MEDS ORDERED: LORazepam 0.5 MG TAB PO ONE (13:05)
[2024-04-06] MEDS ORDERED: VANCOMYCIN/WATER FOR INJ (PEG) 350 ML IV SCH (14:00)
[2024-04-07] VITALS: BP 152/60
[2024-04-07 08:00] VITALS: BP 152/53
[2024-04-07] MEDS ORDERED: Acetaminophen/Hydrocodone ES 7.5/325 tablet PO PRN (08:45)
[2024-04-07 12:00] VITALS: BP 133/56
[2024-04-07 13:29] VITALS: BP 130/55
[2024-04-07] MEDS ORDERED: BUPIVACAINE 0.5% 30 ML IV ONE (13:58)
[2024-04-07] MEDS ORDERED: Vancomycin Hydrochloride 1,000 MG VIAL T ONE (14:55)
[2024-04-07 16:00] VITALS: BP 160/40
[2024-04-07 20:00] VITALS: BP 179/72
[2024-04-08] VITALS: BP 166/70
[2024-04-08] MEDS ORDERED: ELIQUIS5 M1 PO (07:04)
[2024-04-08 08:00] VITALS: BP 159/69
[2024-04-08] MEDS ORDERED: Lactobacillus Acidophilus/LA 1 TAB TAB PO SCH ×2 (10:00→18:00)
[2024-04-08 12:00] VITALS: BP 130/56
[2024-04-08 15:08] LABS: ACID FAST SPEC PROCESSING Tissue Grinding (.)
[2024-04-08 15:08] LABS: ACID FAST SPEC PROCESSING Tissue Grinding (.)
[2024-04-08 16:00] VITALS: BP 144/68
[2024-04-08] MEDS ORDERED: VANCOMYCIN/WATER FOR INJ (PEG) 400 ML IV SCH (16:00)
[2024-04-08 20:00] VITALS: BP 118/53
[2024-04-09] VITALS: BP 110/52
[2024-04-09 06:22] LABS: BASO # 0.1 10*3/uL (0.0-0.1); BASO % 0.6 % (0.0-1.0); EOS # 0.4 10*3/uL (0.0-0.4); EOS % 4.3 % (1.0-4.0); HEMATOCRIT 33.7 % (37.0-47.0); LYMPH # 3.2 10*3/uL (1.3-4.4); MEAN CELL VOLUME 98.8 fl (81.0-99.0); MEAN CORPUSCULAR HGB 29.9 pg (27.0-31.0); MEAN CORPUSCULAR HGB CONC 30.3 g/dl (33.0-37.0); MEAN PLATELET VOLUME 10.7 fl (9.6-12.3); MONO # 0.5 10*3/uL (0.1-1.0); MONO % 5.5 % (3.0-9.0); NEUT # 4.4 10*3/uL (2.3-7.9); NEUT % 51.4 % (47.0-73.0); PLATELET COUNT AUTOMATED 295 10*3/uL (130-400); RED BLOOD COUNT 3.41 10*6/uL (4.10-5.10); RED CELL DISTRI WIDTH 13.1 % (0-14.5); WHITE BLOOD COUNT 8.5 10*3/uL (4.8-10.8)
[2024-04-09 06:24] LABS: ALKALINE PHOSPHATASE 87 U/L (46-116); BUN 29 mg/dl (9-23); CHLORIDE 109 mmol/L (98-107); POTASSIUM 4.4 mmol/L (3.4-5.1); SGPT/ALT 10 U/L (5-49); TOTAL PROTEIN 5.8 gm/dL (6.0-8.0)
[2024-04-09 08:00] VITALS: BP 141/57
[2024-04-09 12:00] VITALS: BP 104/69
[2024-04-09 16:00] VITALS: BP 106/70
[2024-04-09] MEDS ORDERED: DALVANCE500 MG IV (18:24)
[2024-04-09] MEDS ORDERED: LEVOFLOXACIN750 M2 PO (18:24)
[2024-04-09 20:00] VITALS: BP 137/55
[2024-04-09] MEDS ORDERED: METRONIDAZOLE500 M1 PO (20:37)
[2024-04-10] VITALS: BP 138/64
[2024-04-10 08:00] VITALS: BP 171/66
[2024-04-10 12:00] VITALS: BP 104/64
[2024-04-10 16:00] VITALS: BP 152/62
[2024-04-10 20:00] VITALS: BP 140/60
[2024-04-11] VITALS: BP 152/71
[2024-04-11 08:00] VITALS: BP 174/61
[2024-04-11 09:15] VITALS: BP 141/53
[2024-04-11 12:00] VITALS: BP 114/56
[2024-04-11] MEDS ORDERED: LEVOFLOXACIN750 M2 PO (13:03)
[2024-04-11] MEDS ORDERED: DALVANCE500 MG IV (13:03)
[2024-04-11] MEDS ORDERED: METRONIDAZOLE500 M1 PO (13:03)
[2024-04-11 16:00] VITALS: BP 144/44
[2024-04-11] MEDS ORDERED: VANCOMYCIN/WATER FOR INJ (PEG) 250 ML IV SCH (16:00)
[2024-04-11 20:00] VITALS: BP 143/64
[2024-04-12] VITALS: BP 157/51
[2024-04-12 08:00] VITALS: BP 170/65
[2024-04-12 12:00] VITALS: BP 125/55
[2024-04-12 16:00] VITALS: BP 163/73
== END 2024-04-12 18:30 | DRG 721 ==
LOC: ED 11:56 → 4E 15:51 → EDHOLD 15:51 → 4E 04-06 13:10
PROVIDERS: Internal Medicine Infectious Disease; Nurse Practitioner Family; Orthopaedic Surgery; ADMIT Internal Medicine; ATTEND Internal Medicine
PROC: 0QBM3ZX Excision of Left Tarsal, Percutaneous Approach, Diagnostic (ICD-10-PCS; principal; 2024-04-07)
PROC: 0JBR0ZZ Excision of Left Foot Subcutaneous Tissue and Fascia, Open Approach (ICD-10-PCS; 2024-04-07)
PROC: 0JCR0ZZ Extirpation of Matter from Left Foot Subcutaneous Tissue and Fascia, Open Approach (ICD-10-PCS; 2024-04-07)
PROC: 2W3TX1Z Immobilization of Left Foot using Splint (ICD-10-PCS; 2024-04-07)
PROC: 05HB33Z Insertion of Infusion Device into Right Basilic Vein, Percutaneous Approach (ICD-10-PCS; 2024-04-08)
DX: T81.41XA Infection following a procedure, superficial incisional surgical site, initial encounter (principal); I13.0 Hypertensive heart and chronic kidney disease with heart failure and stage 1 through stage 4 chronic kidney disease, or unspecified chronic kidney disease; G45.9 Transient cerebral ischemic attack, unspecified; L97.429 Non-pressure chronic ulcer of left heel and midfoot with unspecified severity; N18.6 End stage renal disease; E11.621 Type 2 diabetes mellitus with foot ulcer; L03.116 Cellulitis of left lower limb; E11.22 Type 2 diabetes mellitus with diabetic chronic kidney disease; I48.0 Paroxysmal atrial fibrillation; F41.9 Anxiety disorder, unspecified; J45.909 Unspecified asthma, uncomplicated; I25.10 Atherosclerotic heart disease of native coronary artery without angina pectoris; I50.9 Heart failure, unspecified; S90.852A Superficial foreign body, left foot, initial encounter; K59.00 Constipation, unspecified; Y81.3 Surgical instruments, materials and general- and plastic-surgery devices (including sutures) associated with adverse incidents; E11.51 Type 2 diabetes mellitus with diabetic peripheral angiopathy without gangrene; Y83.8 Other surgical procedures as the cause of abnormal reaction of the patient, or of later complication, without mention of misadventure at the time of the procedure; E11.42 Type 2 diabetes mellitus with diabetic polyneuropathy; E78.2 Mixed hyperlipidemia; M79.5 Residual foreign body in soft tissue; Z87.891 Personal history of nicotine dependence; Z88.0 Allergy status to penicillin; Z83.3 Family history of diabetes mellitus; Z82.49 Family history of ischemic heart disease and other diseases of the circulatory system; Y92.89 Other specified places as the place of occurrence of the external cause; Z80.9 Family history of malignant neoplasm, unspecified

== ENCOUNTER 2024-06-10 08:24 | Emergency (ER) | payer OTHER ==
[~2024-06-10] VITALS: Wt 98.9 kg
[~2024-06-10 08:24] MED LIST changes: +DALVANCE500 MG IV; +LANTUS SOL100 UNIT/1 SQ; +LEVOFLOXACIN750 M2 PO; +LOMOTIL 2.5-0.1 EACH PO; +METRONIDAZOLE500 M1 PO; +SIMVASTATIN40 MG PO; +VITAMIN D31250 MC1 PO
[2024-06-10 08:32] VITALS: BP 202/80
[2024-06-10 08:53] LABS: HEMATOCRIT 36.8 % (37.0-47.0); MEAN CELL VOLUME 94.1 fl (81.0-99.0); MEAN CORPUSCULAR HGB 29.7 pg (27.0-31.0); MEAN CORPUSCULAR HGB CONC 31.5 g/dl (33.0-37.0); MEAN PLATELET VOLUME 11.1 fl (9.6-12.3); PLATELET COUNT AUTOMATED 266 10*3/uL (130-400); RED BLOOD COUNT 3.91 10*6/uL (4.10-5.10); RED CELL DISTRI WIDTH 13.2 % (0-14.5); WHITE BLOOD COUNT 20.6 10*3/uL (4.8-10.8)
[2024-06-10 08:55] LABS: MANUAL DIFF REFLEX YES
[2024-06-10 09:20] LABS: PLATELET SUFFICIENCY NORMAL (NORMAL); TOTAL CELLS COUNTED 100 #CELLS
== END 2024-06-10 09:32 | disposition left against medical advice (07) ==
LOC: ED 08:24
PROVIDERS: Emergency Medicine
DX: R53.1 Weakness (principal); J44.9 Chronic obstructive pulmonary disease, unspecified; E78.5 Hyperlipidemia, unspecified; I13.0 Hypertensive heart and chronic kidney disease with heart failure and stage 1 through stage 4 chronic kidney disease, or unspecified chronic kidney disease; N18.9 Chronic kidney disease, unspecified; I50.9 Heart failure, unspecified; Z88.0 Allergy status to penicillin; Z98.890 Other specified postprocedural states; Z95.5 Presence of coronary angioplasty implant and graft; Z87.891 Personal history of nicotine dependence; Z53.29 Procedure and treatment not carried out because of patient's decision for other reasons; W19.XXXA Unspecified fall, initial encounter

== ENCOUNTER → 2024-06-27 | Outpatient (CLI) | payer OTHER | END | disposition home or self-care (01) | LOC: WOUNDCARE 01:47 | PROVIDERS: ATTEND Nurse Practitioner Family | DX: E11.621 Type 2 diabetes mellitus with foot ulcer (principal); L97.422 Non-pressure chronic ulcer of left heel and midfoot with fat layer exposed; I87.2 Venous insufficiency (chronic) (peripheral); E11.51 Type 2 diabetes mellitus with diabetic peripheral angiopathy without gangrene; E11.22 Type 2 diabetes mellitus with diabetic chronic kidney disease; I13.0 Hypertensive heart and chronic kidney disease with heart failure and stage 1 through stage 4 chronic kidney disease, or unspecified chronic kidney disease; N18.9 Chronic kidney disease, unspecified; I50.9 Heart failure, unspecified; J44.9 Chronic obstructive pulmonary disease, unspecified; Z87.891 Personal history of nicotine dependence; Z79.4 Long term (current) use of insulin; Z79.899 Other long term (current) drug therapy ==

== ENCOUNTER → 2024-07-06 | Outpatient (CLI) | payer OTHER | END | disposition home or self-care (01) | LOC: WOUNDCARE 02:19 | PROVIDERS: ATTEND Nurse Practitioner Family | DX: E11.621 Type 2 diabetes mellitus with foot ulcer (principal); L97.422 Non-pressure chronic ulcer of left heel and midfoot with fat layer exposed; I87.2 Venous insufficiency (chronic) (peripheral); E11.51 Type 2 diabetes mellitus with diabetic peripheral angiopathy without gangrene; E11.22 Type 2 diabetes mellitus with diabetic chronic kidney disease; I13.0 Hypertensive heart and chronic kidney disease with heart failure and stage 1 through stage 4 chronic kidney disease, or unspecified chronic kidney disease; N18.9 Chronic kidney disease, unspecified; I50.9 Heart failure, unspecified; J44.9 Chronic obstructive pulmonary disease, unspecified; Z87.891 Personal history of nicotine dependence; Z79.4 Long term (current) use of insulin; Z79.899 Other long term (current) drug therapy ==

== ENCOUNTER → 2024-07-11 | Outpatient (CLI) | payer OTHER ==
[2024-07-11 14:09] LABS: BILIRUBIN Negative (Negative); BLOOD 1+ (Negative); CLARITY Clear (Clear); COLOR Yellow (Yellow); GLUCOSE 1+ (Negative); KETONE Negative (Negative); LEUKO ESTERASE Negative (Negative); NITRITE Negative (Negative); SPECIFIC GRAVITY 1.015 (1.001-1.030); UROBILINOGEN 0.2 E.U./dl (0.0-1.0)
[2024-07-11 14:41] LABS: MUCOUS 1+
[2024-07-11 14:58] LABS: POTASSIUM 4.3 mmol/L (3.4-5.1); TOTAL PROTEIN 6.5 gm/dL (6.0-8.0)
== END | disposition home or self-care (01) ==
LOC: WOUNDCARE 01:21 → LAB 03:11
PROVIDERS: ATTEND Nurse Practitioner Family
DX: E11.621 Type 2 diabetes mellitus with foot ulcer (principal); L97.422 Non-pressure chronic ulcer of left heel and midfoot with fat layer exposed; I87.2 Venous insufficiency (chronic) (peripheral); E11.51 Type 2 diabetes mellitus with diabetic peripheral angiopathy without gangrene; E11.22 Type 2 diabetes mellitus with diabetic chronic kidney disease; D64.9 Anemia, unspecified; N17.9 Acute kidney failure, unspecified; I13.0 Hypertensive heart and chronic kidney disease with heart failure and stage 1 through stage 4 chronic kidney disease, or unspecified chronic kidney disease; N18.9 Chronic kidney disease, unspecified; I50.9 Heart failure, unspecified; E55.9 Vitamin D deficiency, unspecified; Z87.891 Personal history of nicotine dependence; Z79.4 Long term (current) use of insulin; Z79.899 Other long term (current) drug therapy

== ENCOUNTER → 2024-07-18 | Outpatient (CLI) | payer OTHER | LOC: WOUNDCARE 01:49 | PROVIDERS: ATTEND Nurse Practitioner Family | DX: E11.621 Type 2 diabetes mellitus with foot ulcer (principal); L97.422 Non-pressure chronic ulcer of left heel and midfoot with fat layer exposed; I87.2 Venous insufficiency (chronic) (peripheral); E11.51 Type 2 diabetes mellitus with diabetic peripheral angiopathy without gangrene; E11.22 Type 2 diabetes mellitus with diabetic chronic kidney disease; I13.0 Hypertensive heart and chronic kidney disease with heart failure and stage 1 through stage 4 chronic kidney disease, or unspecified chronic kidney disease; I50.9 Heart failure, unspecified; N18.9 Chronic kidney disease, unspecified; I25.2 Old myocardial infarction; J44.9 Chronic obstructive pulmonary disease, unspecified; Z87.891 Personal history of nicotine dependence ==

== ENCOUNTER → 2024-07-25 | Outpatient (CLI) | payer OTHER | END | disposition home or self-care (01) | LOC: WOUNDCARE 00:42 | PROVIDERS: ATTEND Nurse Practitioner Family | DX: E11.621 Type 2 diabetes mellitus with foot ulcer (principal); L97.422 Non-pressure chronic ulcer of left heel and midfoot with fat layer exposed; L97.521 Non-pressure chronic ulcer of other part of left foot limited to breakdown of skin; I87.2 Venous insufficiency (chronic) (peripheral); E11.51 Type 2 diabetes mellitus with diabetic peripheral angiopathy without gangrene; E11.22 Type 2 diabetes mellitus with diabetic chronic kidney disease; I13.0 Hypertensive heart and chronic kidney disease with heart failure and stage 1 through stage 4 chronic kidney disease, or unspecified chronic kidney disease; N18.9 Chronic kidney disease, unspecified; I50.9 Heart failure, unspecified; D64.9 Anemia, unspecified; N17.9 Acute kidney failure, unspecified; E55.9 Vitamin D deficiency, unspecified; Z87.891 Personal history of nicotine dependence; Z79.4 Long term (current) use of insulin; Z79.899 Other long term (current) drug therapy ==

== ENCOUNTER → 2024-08-01 | Outpatient (CLI) | payer OTHER | END | disposition home or self-care (01) | LOC: WOUNDCARE 02:47 | PROVIDERS: ATTEND Nurse Practitioner Primary Care | DX: E11.621 Type 2 diabetes mellitus with foot ulcer (principal); L97.421 Non-pressure chronic ulcer of left heel and midfoot limited to breakdown of skin; L97.521 Non-pressure chronic ulcer of other part of left foot limited to breakdown of skin; I87.2 Venous insufficiency (chronic) (peripheral); L84 Corns and callosities; E11.51 Type 2 diabetes mellitus with diabetic peripheral angiopathy without gangrene; I13.0 Hypertensive heart and chronic kidney disease with heart failure and stage 1 through stage 4 chronic kidney disease, or unspecified chronic kidney disease; E11.22 Type 2 diabetes mellitus with diabetic chronic kidney disease; N18.9 Chronic kidney disease, unspecified; I50.9 Heart failure, unspecified; J44.9 Chronic obstructive pulmonary disease, unspecified; Z87.891 Personal history of nicotine dependence; Z98.890 Other specified postprocedural states; Z79.4 Long term (current) use of insulin ==

== ENCOUNTER → 2024-08-15 | Outpatient (CLI) | payer OTHER | END | disposition home or self-care (01) | LOC: WOUNDCARE 00:46 | PROVIDERS: ATTEND Nurse Practitioner Family | DX: E11.621 Type 2 diabetes mellitus with foot ulcer (principal); L97.422 Non-pressure chronic ulcer of left heel and midfoot with fat layer exposed; L97.522 Non-pressure chronic ulcer of other part of left foot with fat layer exposed; I87.2 Venous insufficiency (chronic) (peripheral); R60.9 Edema, unspecified; L84 Corns and callosities; E11.51 Type 2 diabetes mellitus with diabetic peripheral angiopathy without gangrene; I13.0 Hypertensive heart and chronic kidney disease with heart failure and stage 1 through stage 4 chronic kidney disease, or unspecified chronic kidney disease; E11.22 Type 2 diabetes mellitus with diabetic chronic kidney disease; N18.9 Chronic kidney disease, unspecified; I50.9 Heart failure, unspecified; J45.909 Unspecified asthma, uncomplicated; Z87.891 Personal history of nicotine dependence; Z98.890 Other specified postprocedural states; Z79.4 Long term (current) use of insulin; Z79.899 Other long term (current) drug therapy ==

== ENCOUNTER → 2024-08-31 | Outpatient (CLI) | payer OTHER | END | disposition home or self-care (01) | LOC: WOUNDCARE 00:57 | PROVIDERS: ATTEND Nurse Practitioner Family | DX: E11.621 Type 2 diabetes mellitus with foot ulcer (principal); L97.422 Non-pressure chronic ulcer of left heel and midfoot with fat layer exposed; L97.522 Non-pressure chronic ulcer of other part of left foot with fat layer exposed; E11.622 Type 2 diabetes mellitus with other skin ulcer; L97.822 Non-pressure chronic ulcer of other part of left lower leg with fat layer exposed; I87.2 Venous insufficiency (chronic) (peripheral); L84 Corns and callosities; E11.51 Type 2 diabetes mellitus with diabetic peripheral angiopathy without gangrene; I13.0 Hypertensive heart and chronic kidney disease with heart failure and stage 1 through stage 4 chronic kidney disease, or unspecified chronic kidney disease; E11.22 Type 2 diabetes mellitus with diabetic chronic kidney disease; N18.9 Chronic kidney disease, unspecified; I50.9 Heart failure, unspecified; J44.9 Chronic obstructive pulmonary disease, unspecified; K21.9 Gastro-esophageal reflux disease without esophagitis; Z87.891 Personal history of nicotine dependence; Z98.890 Other specified postprocedural states; Z79.4 Long term (current) use of insulin; Z79.899 Other long term (current) drug therapy ==

== ENCOUNTER → 2024-10-11 | Outpatient (CLI) | payer OTHER ==
[2024-10-18 10:06] LABS: ANAEROBE RESULT 1 Prevotella disiens (.)
== END | disposition home or self-care (01) ==
LOC: WOUNDCARE 01:12
PROVIDERS: ATTEND Nurse Practitioner Family
DX: E11.621 Type 2 diabetes mellitus with foot ulcer (principal); L97.422 Non-pressure chronic ulcer of left heel and midfoot with fat layer exposed; L03.115 Cellulitis of right lower limb; R60.9 Edema, unspecified; L84 Corns and callosities; I87.2 Venous insufficiency (chronic) (peripheral); I11.0 Hypertensive heart disease with heart failure; I50.9 Heart failure, unspecified; I25.2 Old myocardial infarction; E11.51 Type 2 diabetes mellitus with diabetic peripheral angiopathy without gangrene; J45.909 Unspecified asthma, uncomplicated; Z98.890 Other specified postprocedural states; Z87.891 Personal history of nicotine dependence; Z79.4 Long term (current) use of insulin; Z79.899 Other long term (current) drug therapy

== ENCOUNTER → 2024-10-19 | Outpatient (CLI) | payer OTHER ==
[2024-10-19 13:19] LABS: BASO % 0.3 % (0.0-1.0); EOS # 0.2 10*3/uL (0.0-0.4); EOS % 1.5 % (1.0-4.0); HEMATOCRIT 26.4 % (37.0-47.0); MEAN CORPUSCULAR HGB 29.3 pg (27.0-31.0); MEAN CORPUSCULAR HGB CONC 31.8 g/dl (33.0-37.0); MEAN PLATELET VOLUME 11.9 fl (9.6-12.3); MONO # 0.5 10*3/uL (0.1-1.0); MONO % 4.6 % (3.0-9.0); NEUT % 81.8 % (47.0-73.0); PLATELET COUNT AUTOMATED 226 10*3/uL (130-400); RED BLOOD COUNT 2.87 10*6/uL (4.10-5.10); RED CELL DISTRI WIDTH 14.4 % (0-14.5); WHITE BLOOD COUNT 9.8 10*3/uL (4.8-10.8)
[2024-10-19 13:40] LABS: POTASSIUM 5.6 mmol/L (3.4-5.1); TOTAL PROTEIN 7.1 gm/dL (6.0-8.0)
== END | disposition home or self-care (01) ==
LOC: LAB 00:56 → WOUNDCARE 00:56
PROVIDERS: ATTEND Nurse Practitioner Family
DX: E11.621 Type 2 diabetes mellitus with foot ulcer (principal); L97.422 Non-pressure chronic ulcer of left heel and midfoot with fat layer exposed; L03.115 Cellulitis of right lower limb; R60.9 Edema, unspecified; L84 Corns and callosities; I87.2 Venous insufficiency (chronic) (peripheral); E11.51 Type 2 diabetes mellitus with diabetic peripheral angiopathy without gangrene; I13.0 Hypertensive heart and chronic kidney disease with heart failure and stage 1 through stage 4 chronic kidney disease, or unspecified chronic kidney disease; E11.22 Type 2 diabetes mellitus with diabetic chronic kidney disease; N18.9 Chronic kidney disease, unspecified; I50.9 Heart failure, unspecified; J45.909 Unspecified asthma, uncomplicated; Z87.891 Personal history of nicotine dependence; Z98.890 Other specified postprocedural states; Z79.4 Long term (current) use of insulin; Z79.899 Other long term (current) drug therapy

== ENCOUNTER → 2024-10-26 | Outpatient (CLI) | payer OTHER | END | disposition home or self-care (01) | LOC: WOUNDCARE 02:36 | PROVIDERS: ATTEND Nurse Practitioner Family | DX: E11.621 Type 2 diabetes mellitus with foot ulcer (principal); L97.422 Non-pressure chronic ulcer of left heel and midfoot with fat layer exposed; I87.2 Venous insufficiency (chronic) (peripheral); L03.115 Cellulitis of right lower limb; I13.0 Hypertensive heart and chronic kidney disease with heart failure and stage 1 through stage 4 chronic kidney disease, or unspecified chronic kidney disease; E11.22 Type 2 diabetes mellitus with diabetic chronic kidney disease; N18.9 Chronic kidney disease, unspecified; I50.9 Heart failure, unspecified; E11.51 Type 2 diabetes mellitus with diabetic peripheral angiopathy without gangrene; J45.909 Unspecified asthma, uncomplicated; J44.9 Chronic obstructive pulmonary disease, unspecified; Z87.891 Personal history of nicotine dependence; Z98.890 Other specified postprocedural states; Z79.4 Long term (current) use of insulin; Z79.899 Other long term (current) drug therapy ==

== ENCOUNTER → 2024-11-02 | Outpatient (CLI) | payer OTHER | END | disposition home or self-care (01) | LOC: WOUNDCARE 03:16 | PROVIDERS: ATTEND Nurse Practitioner Family | DX: E11.621 Type 2 diabetes mellitus with foot ulcer (principal); L97.422 Non-pressure chronic ulcer of left heel and midfoot with fat layer exposed; R60.9 Edema, unspecified; L84 Corns and callosities; E11.51 Type 2 diabetes mellitus with diabetic peripheral angiopathy without gangrene; I87.2 Venous insufficiency (chronic) (peripheral); I11.0 Hypertensive heart disease with heart failure; I50.9 Heart failure, unspecified; I25.2 Old myocardial infarction; J45.909 Unspecified asthma, uncomplicated; Z98.890 Other specified postprocedural states; Z87.891 Personal history of nicotine dependence; Z79.4 Long term (current) use of insulin; Z79.899 Other long term (current) drug therapy ==

== ENCOUNTER → 2024-11-25 | Outpatient (CLI) | payer OTHER | LOC: WOUNDCARE 01:03 | PROVIDERS: ATTEND Nurse Practitioner Family | DX: E11.621 Type 2 diabetes mellitus with foot ulcer (principal); L97.422 Non-pressure chronic ulcer of left heel and midfoot with fat layer exposed; R60.9 Edema, unspecified; L84 Corns and callosities; E11.51 Type 2 diabetes mellitus with diabetic peripheral angiopathy without gangrene; I87.2 Venous insufficiency (chronic) (peripheral); I11.0 Hypertensive heart disease with heart failure; I50.9 Heart failure, unspecified; I25.2 Old myocardial infarction; J45.909 Unspecified asthma, uncomplicated; Z87.891 Personal history of nicotine dependence; Z98.890 Other specified postprocedural states; Z79.4 Long term (current) use of insulin; Z79.899 Other long term (current) drug therapy ==

== ENCOUNTER → 2024-11-30 | Outpatient (CLI) | payer OTHER | END | disposition home or self-care (01) | LOC: WOUNDCARE 03:03 | PROVIDERS: ATTEND Nurse Practitioner Family | DX: E11.621 Type 2 diabetes mellitus with foot ulcer (principal); L97.422 Non-pressure chronic ulcer of left heel and midfoot with fat layer exposed; I87.2 Venous insufficiency (chronic) (peripheral); E11.51 Type 2 diabetes mellitus with diabetic peripheral angiopathy without gangrene; I13.0 Hypertensive heart and chronic kidney disease with heart failure and stage 1 through stage 4 chronic kidney disease, or unspecified chronic kidney disease; E11.22 Type 2 diabetes mellitus with diabetic chronic kidney disease; N18.9 Chronic kidney disease, unspecified; I50.9 Heart failure, unspecified; J44.9 Chronic obstructive pulmonary disease, unspecified; Z87.891 Personal history of nicotine dependence; Z98.890 Other specified postprocedural states; Z79.4 Long term (current) use of insulin; Z79.899 Other long term (current) drug therapy ==

== ENCOUNTER → 2024-12-15 | Outpatient (CLI) | payer OTHER ==
[~2024-12-15] MED LIST changes: +LOPRESSOR25 MG PO; +ZYVOX600 MG PO
[2024-12-15 13:53] LABS: BASO % 0.5 % (0.0-1.0); EOS # 0.3 10*3/uL (0.0-0.4); HEMATOCRIT 31.6 % (37.0-47.0); MEAN CELL VOLUME 90.8 fl (81.0-99.0); MEAN CORPUSCULAR HGB 27.9 pg (27.0-31.0); MEAN CORPUSCULAR HGB CONC 30.7 g/dl (33.0-37.0); MEAN PLATELET VOLUME 10.4 fl (9.6-12.3); MONO # 0.6 10*3/uL (0.1-1.0); MONO % 6.5 % (3.0-9.0); NEUT # 6.2 10*3/uL (2.3-7.9); NEUT % 72.7 % (47.0-73.0); PLATELET COUNT AUTOMATED 248 10*3/uL (130-400); RED BLOOD COUNT 3.48 10*6/uL (4.10-5.10); RED CELL DISTRI WIDTH 14.8 % (0-14.5); WHITE BLOOD COUNT 8.6 10*3/uL (4.8-10.8)
[2024-12-15 14:26] LABS: POTASSIUM 5.2 mmol/L (3.4-5.1); TOTAL PROTEIN 7.4 gm/dL (6.0-8.0)
[2024-12-15 14:29] LABS: FREE T4 1.38 ng/dl (0.89-1.76)
[2024-12-15 14:30] LABS: VITAMIN D, 25-HYDROXY 35.2 ng/mL (30-100)
== END | disposition home or self-care (01) ==
LOC: WOUNDCARE 03:46 → LAB 03:46 → WOUNDCARE 13:35
PROVIDERS: Internal Medicine; Internal Medicine Infectious Disease; ATTEND Nurse Practitioner Family
DX: E11.621 Type 2 diabetes mellitus with foot ulcer (principal); L97.422 Non-pressure chronic ulcer of left heel and midfoot with fat layer exposed; E11.622 Type 2 diabetes mellitus with other skin ulcer; L97.812 Non-pressure chronic ulcer of other part of right lower leg with fat layer exposed; I87.2 Venous insufficiency (chronic) (peripheral); R60.9 Edema, unspecified; L84 Corns and callosities; E11.51 Type 2 diabetes mellitus with diabetic peripheral angiopathy without gangrene; I13.0 Hypertensive heart and chronic kidney disease with heart failure and stage 1 through stage 4 chronic kidney disease, or unspecified chronic kidney disease; E11.22 Type 2 diabetes mellitus with diabetic chronic kidney disease; N18.9 Chronic kidney disease, unspecified; I50.9 Heart failure, unspecified; I25.2 Old myocardial infarction; J45.909 Unspecified asthma, uncomplicated; Z87.891 Personal history of nicotine dependence; Z98.890 Other specified postprocedural states; Z79.4 Long term (current) use of insulin; Z79.899 Other long term (current) drug therapy; E55.9 Vitamin D deficiency, unspecified

== ENCOUNTER → 2025-01-02 | Outpatient (CLI) | payer OTHER | END | disposition home or self-care (01) | LOC: WOUNDCARE 02:30 | PROVIDERS: ATTEND Nurse Practitioner Family | DX: E11.621 Type 2 diabetes mellitus with foot ulcer (principal); L97.422 Non-pressure chronic ulcer of left heel and midfoot with fat layer exposed; E11.622 Type 2 diabetes mellitus with other skin ulcer; L97.812 Non-pressure chronic ulcer of other part of right lower leg with fat layer exposed; L97.822 Non-pressure chronic ulcer of other part of left lower leg with fat layer exposed; L89.626 Pressure-induced deep tissue damage of left heel; I87.2 Venous insufficiency (chronic) (peripheral); E11.51 Type 2 diabetes mellitus with diabetic peripheral angiopathy without gangrene; I11.0 Hypertensive heart disease with heart failure; I50.9 Heart failure, unspecified; J44.9 Chronic obstructive pulmonary disease, unspecified; Z87.891 Personal history of nicotine dependence; Z79.4 Long term (current) use of insulin; Z79.899 Other long term (current) drug therapy ==

== ENCOUNTER → 2025-01-20 | Outpatient (CLI) | payer OTHER | LOC: WOUNDCARE 01:34 | PROVIDERS: ATTEND Nurse Practitioner Family | DX: E11.621 Type 2 diabetes mellitus with foot ulcer (principal); L97.422 Non-pressure chronic ulcer of left heel and midfoot with fat layer exposed; L97.522 Non-pressure chronic ulcer of other part of left foot with fat layer exposed; E11.622 Type 2 diabetes mellitus with other skin ulcer; L97.812 Non-pressure chronic ulcer of other part of right lower leg with fat layer exposed; L95.8 Other vasculitis limited to the skin; I87.2 Venous insufficiency (chronic) (peripheral); L89.626 Pressure-induced deep tissue damage of left heel; E11.51 Type 2 diabetes mellitus with diabetic peripheral angiopathy without gangrene; I13.0 Hypertensive heart and chronic kidney disease with heart failure and stage 1 through stage 4 chronic kidney disease, or unspecified chronic kidney disease; E11.22 Type 2 diabetes mellitus with diabetic chronic kidney disease; N18.9 Chronic kidney disease, unspecified; I50.9 Heart failure, unspecified; J44.9 Chronic obstructive pulmonary disease, unspecified; Z87.891 Personal history of nicotine dependence; Z98.890 Other specified postprocedural states; Z79.4 Long term (current) use of insulin; Z79.899 Other long term (current) drug therapy ==

== ENCOUNTER → 2025-07-20 | Outpatient (CLI) | payer MEDICAID ==
[~2025-07-20] MED LIST changes: +AMLODIPINE BESY10 MG PO; +BUMETANIDE1 MG PO; +CALCIUM ACETAT667 M2 PO; +DILTIAZEM HCL60 MG PO; +ERTAPENEM1 GM IV; +MEROPENEM-1 GM/50 ML IV; +VIT D2 1.25 MG (50,0; +[UNRECOGNIZED DRUG - OTHER] PO
== END | disposition home or self-care (01) ==
LOC: WOUNDCARE 00:46
PROVIDERS: ATTEND Nurse Practitioner Family
DX: E11.621 Type 2 diabetes mellitus with foot ulcer (principal); L97.422 Non-pressure chronic ulcer of left heel and midfoot with fat layer exposed; L97.512 Non-pressure chronic ulcer of other part of right foot with fat layer exposed; I87.2 Venous insufficiency (chronic) (peripheral); L89.523 Pressure ulcer of left ankle, stage 3; L89.626 Pressure-induced deep tissue damage of left heel; L89.896 Pressure-induced deep tissue damage of other site; E11.51 Type 2 diabetes mellitus with diabetic peripheral angiopathy without gangrene; I11.0 Hypertensive heart disease with heart failure; I50.9 Heart failure, unspecified; J44.9 Chronic obstructive pulmonary disease, unspecified; Z87.891 Personal history of nicotine dependence; Z98.890 Other specified postprocedural states; Z79.4 Long term (current) use of insulin; Z79.899 Other long term (current) drug therapy